=== PATIENT | male | born 1950 | race Caucasian/White ===

== ENCOUNTER 2025-02-01 12:22 | Outpatient (CLI) | payer MEDICARE, SELFPAY ==
[2025-02-01 15:18] LABS: Hematocrit 39.7 % (42.0-52.0); Hemoglobin 13.5 g/dL (14.1-18.0); Immature Granulocytes % 0.4 %; Mean Corpuscular HGB Conc 34.0 g/dL (31.8-35.4); Mean Corpuscular Hemoglobin 31.5 pg (27.0-31.2); Mean Corpuscular Volume 92.8 fl (80-94); Nucleated Red Blood Cells % 0 %; Platelet Count 272 K/mm3 (142-424); Red Blood Count 4.28 M/mm3 (4.60-6.20); Red Cell Distribution Width-SD 45.3 fL; White Blood Count 5.6 K/mm3 (4.8-10.8)
[2025-02-01 15:41] LABS: Alanine Aminotransferase 23 U/L (12-78); Albumin Level 3.8 g/dl (3.5-5.0); Albumin/Globulin Ratio 2.0 (1.1-1.8); Alkaline Phosphatase 48 U/L (38-126); Anion Gap 9.1 mEq/L (5-15); Aspartate Amino Transferase 34 U/L (17-59); Bilirubin,Total 0.7 mg/dl (0.2-1.3); Blood Urea Nitrogen 19 mg/dl (9-20); Calcium 9.4 mg/dl (8.4-10.2); Carbon Dioxide 28 mmol/L (22.0-30.0); Chloride 106 mmol/L (98-107); Cholesterol 123 mg/dl (140-200); Creatinine,Serum 1.00 mg/dl (0.66-1.25); Estimated Glomerular Filt Rate 73 ml/min (>60); GFR (African American) 88 ML/MIN (>60); Globulin 1.9 g/dL (1.3-3.2); Glucose 121 mg/dl (74-100); HDL Cholesterol 34 mg/dl (40-60); Magnesium 1.7 mg/dl (1.6-2.3); Potassium 4.1 mmoL/L (3.5-5.1); Sodium 139 mmol/L (136-145); Total Protein,Serum 5.7 g/dl (6.3-8.2); Triglycerides 110 mg/dl (30-150)
[2025-02-01 16:01] LABS: Free T4 (Free Thyroxine) 1.30 ng/dl (0.78-2.19)
[2025-02-01 16:12] LABS: Thyroid Stimulating Hormone 0.89 uIU/mL (0.465-4.68)
--- OUTSIDE RECORDS SUMMARY | 2025-02-02 12:07 | XMS_ITS | Encounter Summary ---
Author Organization [employer] ([place], [place], [place], [place]) Address [address] [place] [address] Care Team Providers Care Valve Grinder Name Role Phone Nithya Mahan MD Primary Care Provider [phone] Encounter Details Date Type Department Care Team (Late st Contact Info) Description 06/25/2020 Transcribed Document [facility] [place] [facility] [place] [address] ProviderPrakash MD [address] [place], [place] [id number] Social History Tobacco Use Types Packs/Day Years Used Date Smoking Tobacco: Never Assessed Sex and Gender Information Value Date Recorded Sex Assigned at Not on file Legal Sex Male 2:15 PM CDT Gender Identity Not on file Sexual Orientation Not on file documented as of this encounter Miscellaneous Notes * Cerner Conversion Note - Prakash ProviderMD - 06/25/2020 4:18 AM CONSUMER INSIGHT ANALYST Admission History, Adult Entered On: 06/25/2020 16:30 EST Performed On: 06/25/2020 15:20 EST by Nabila Clarke Rn Advance Directive Patient has Advance Directive *Q : No, patient refuses Advance Directive information Nabila Clarke Rn - 06/25/2020 16:48 EST Anesthesia/Transfusion History Family History of Anesthesia Reaction : Unknown Blood Transfusion Acceptable to Patient : Yes Transfusion History : Prior anesthesia without reaction Family History of Anesthesia Reaction : None Nabila Clarke Rn - 06/25/2020 16:48 EST Anticipated Discharge Needs Discharge To, Anticipated : Home Anticipated Discharge Needs at This Time : None Nabila Clarke Rn - 06/25/2020 16:48 EST Education Topics, Admission Orientation DCP GENERIC CODE Advance Directives : Verbalizes understanding Allergy Band Applied : Verbalizes understanding Assessment/Vital Signs : Verbalizes understanding Bed Control : Verbalizes understanding Call Light : Verbalizes understanding Confidentiality : Verbalizes understanding Diet/Room Service : Verbalizes understanding Fall Prevention : Verbalizes understanding Hand Hygiene : Verbalizes understanding Healthcare Provider Visit : Verbalizes understanding ID Band Applied : Verbalizes understanding Isolation Precautions : Verbalizes understanding Orientation to Room/Bathroom : Verbalizes understanding Patient Bill of Rights : Verbalizes understanding Patient Rights/Responsibilities : Verbalizes understanding Patient Safety : Verbalizes understanding Personal Privacy Code : Verbalizes understanding Rapid Response Initiated by Patient/Family : Verbalizes understanding Rounding : Verbalizes understanding Siderails use/risks : Verbalizes understanding Skin Precautions : Verbalizes understanding Smoking Policy : Verbalizes understanding Telemetry Monitoring : Verbalizes understanding Television/Phone : Verbalizes understanding Visiting Policy : Verbalizes understanding Nabila Clarke Rn - 06/25/2020 16:48 EST Functional Assessment Living Situation : Home Patient Lives With : Spouse Sensory Deficits : None Mobility Assistance Prior to Admission : Independent STOKES Hx Falls Immediate/Within 3 Months : No Current Home Treatments : None Home Equipment : None Nabila Clarke Rn - 06/25/2020 16:48 EST General Info Patient Arrival Date/Time : 06/25/2020 15:20 EST Arrived From : Other: PACU Mode of Arrival on Unit : Bed Legal Guardian : Spouse Support Person/Pt Rep Name : Amanda Romario Family/Rep/Phys Notified of Admit : No Emergency Contact #1 : Amanda Davenport Emergency Contact #1 Emergency Contact #1 Relationship : spouse Emergency Contact #2 : . Emergency Contact #2 Phone Number : . Emergency Contact #2 Relationship : . Information Obtained From : Patient Primary Language : Ukrainian Preferred Communication Mode : Verbal Communication Barrier : None Telecom Sales Consultant Needed : Nabila Garcia Rn - 06/25/2020 16:48 EST Fall Risk Scales ABCs Fall Injury Risk Identification : Surgery ABC Fall Injury Risk : Moderate to high injury risk Injury Moderate to High Risk Interventions : Bed alarm on STOKES Hx Falls Immediate/Within 3 Months : No Stokes Secondary Diagnosis : Yes STOKES Use of Ambulatory Aid : Bed rest/Nurse assist STOKES IV Therapy or IV Access : Yes Stokes Gait/Transferring : Normal, bedrest, immobile Stokes Mental Status : Oriented to own ability Stokes Fall Risk Score : 35 STOKES Fall Scale Risk Level : 25-45 Medium Risk [place] Fall Interventions : Adequate lighting, Assistive devices within reach, Bed in low position, Call device within reach, Fall prevention handout/education per facility policy, Frequent orientation to call device, Frequent orientation to surroundings, Hourly comfort/safety rounds, Non-slip footwear, Personal items within reach, Reinforced to call for assistance before getting out of bed, Room free of clutter/spills, Upper side-rails up, Wheels locked, Wires/Cords secured Fall Moderate to High Risk Interventions : Bed alarm on Nabila Clarke Rn - 06/25/2020 16:48 EST Fall Risk Education Grid Alarms : Verbalizes understanding Assistive Equipment Use : Verbalizes understanding Bed Height/Stabilization : Verbalizes understanding Call light use : Verbalizes understanding Door Open : Verbalizes understanding Environmental Management : Verbalizes understanding Eyeglasses Use : Verbalizes understanding Fall Community Resources : Verbalizes understanding Fall Contract/Letter : Verbalizes understanding Fall Prevention in the Home : Verbalizes understanding Fall Prevention Protocol : Verbalizes understanding Hearing Aid Use : Verbalizes understanding Home Risk Assessment : Verbalizes understanding Need Constant Observation : Verbalizes understanding Night Light Use : Verbalizes understanding Nonskid Footwear Use : Verbalizes understanding Notification of Staff When Leaving : Verbalizes understanding Orthostatic Hypotension Precautions : Verbalizes understanding Personal Article Availability : Verbalizes understanding Prevention Responsibility Family : Verbalizes understanding Prevention Responsibility Patient : Verbalizes understanding Risk Alert Methods : Verbalizes understanding Risk Factors : Verbalizes understanding Safety Aids : Verbalizes understanding Siderails use/risks : Verbalizes understanding Special Assistive Devices : Verbalizes understanding Staff Responsiveness : Verbalizes understanding Symptom Identification & Action Plan *Q : Verbalizes understanding Symptom Reporting : Verbalizes understanding Toileting Schedule : Verbalizes understanding Transfer/Mobility Techniques : Verbalizes understanding Urinal/Bedpan Availability : Verbalizes understanding Wait for Assistance : Verbalizes understanding Wheelchair Safety : Verbalizes understanding Nabila Clarke Rn - 06/25/2020 16:48 EST Barriers to Learning : None evident Individuals Taught : Patient Readiness to Learn : Cooperative Highest Level of Education : None Baseline Knowledge of Topic : Good Teaching Method : Explanation Learning Style Preferences Patient : Verbal explanation Teaching Evaluation : Verbalizes understanding Fall Risk Scale Calc Temp : 0 Nabila Clarke Rn - 06/25/2020 16:48 EST Health Histories Smoking Status : Former smoker, quit more than 30 days ago Smokeless Tobacco Status : Never Nabila Clarke Rn - 06/25/2020 16:48 EST Social History (As Of: 06/25/2020 16:30:28 EST) Tobacco: Used Tobacco, but Quit Yes. Last Used: kiah pprox. 35 years ago.. (Last Updated: 09/03/2015 08:54:49 EDT by LYNDSAY IBANEZ RN) stopped 35 yrs ago Smoking Status. Never Smokeless Tobacco Status. (Last Updated: 06/17/2020 09:49:56 EST by Genet Vasques RN) Alcohol: Alcohol Use History No. Use in Last 12 Months: No. (Last Updated: 06/17/2020 09:50:05 EST by Genet Vasques RN) Substance Abuse: Drug Use Hx: No. Use in Last 12 Months: No. (Last Updated: 06/17/2020 09:50:10 EST by Genet Vasques RN) Nutrition/Health: Regular (Last Updated: 06/17/2020 09:50:22 EST by Genet Vasques RN) Height and Weight, Clinical Dosing Height Source : Stated Height Entry Format : Garber Height, Feet : 6 ft(Converted to: 183 cm, 72 Inch) Height, Inches : 0 Inch(Converted to: 0 ft 0 Inch, 0.00 cm) Clinical Height : 182.88 cm Weight Source : Standing scale Weight Entry Format : Garber Clinical Dosing Weight : 88.64 kg Weight, Pounds : 195 lb Body Surface Area (BSA) : 2.11 m2 Body Mass Index : 26.5 kg/m2 (HI) Hunters Body Weight : 77 kg Nabila Clarke Rn - 06/25/2020 16:48 EST Infectious Disease History Has the patient ever been tested for COVID-19? : Yes, Patient stated results Negative Date of COVID-19 test known? : Yes Date of COVID-19 Test : 06/21/2020 EST Does patient have symptoms of COVID-19? : No COVID19 Screening : No Experiencing Infectious Disease Symptoms : No symptoms Physical contact outside [place] in the last 30 days : No Infectious Disease History : Measles, Mumps Tuberculosis Symptoms : None Nabila Clarke Rn - 06/25/2020 16:48 EST Tetanus Immunization Status Previous Tetanus Immunizations : No qualifying data available. Tetanus Immunization : None received Nabila Clarke Rn - 06/25/2020 16:48 EST Influenza Vaccine Asmt, Adult Previous Vaccines from Immunization Schedule : No qualifying data available. Influenza Immunization, Current Season : Yes Nabila Clarke Rn - 06/25/2020 16:48 EST Pneumococcal Vaccine Previous Vaccines from Immunization Schedule : No qualifying data available. Pneumonia Immunization Received : Yes Nabila Clarke Rn - 06/25/2020 16:48 EST Order Details Transport Mode Order Detail : Bed (including specialty) Isolation Precautions Order Detail : Standard Precautions Order Detail : N/A IV Order Detail : 1 Oxygen Order Detail : 0 Nurse Collect Order Detail : 0 Lift/Transfer : Independent Central Line Order Detail : No Room Service : Appropriate Arterial Line : No Patient Needs Meds Crushed/Liquid : No Nabila Clarke Rn - 06/25/2020 16:48 EST Nutrition History Feeding Ability : Independent Adaptive Feeding Equipment : None Adaptive Feeding Equipment : Regular Oral Medication Administration : By mouth Eating Poorly Due to Decreased Appetite : No Unplanned Weight Loss in Past 3-6 Months : No Malnutrition Screening Tool Total(mal) : 0 Malnutrition Screening Tool Risk Level : Patient not at risk Nabila Clarke Rn - 06/25/2020 16:48 EST [place] Suicide Severity Rating Scale (C-SSRS) CSSRS Past Month Wish to be : No CSSRS Past Month Suicidal Thoughts : No CSSRS Lifetime Suicide Behavior : No Suicide Severity Rating Score : 0 Suicide Severity Rating : No Additional Care Required at this time Nabila Clarke Rn - 06/25/2020 16:48 EST Psychosocial History Currently in Unsafe Situation : No Nabila Clarke Rn - 06/25/2020 16:48 EST Sleep Apnea Risk Assmt Hx of Obstructive Sleep Apnea Diagnosis : No Snore Loudly : Yes Tired, Fatigued, or Sleepy During Day : No Observed Stopping Breathing During Sleep : No Have/Are Being Treated for Hypertension : Yes BMI Greater Than 35 kg/m2 : No Age over 50 Years Old : Yes Neck Circumference Greater Than 40 cm : No Gender Male : Yes STOP-BANG Sleep Apnea Risk Level Score : 4 Nabila Clarke Rn - 06/25/2020 16:48 EST Valuables and Belongings Valuables and Belongings : Clothing, Personal devices, Personal items Clothing : Common streetwear Clothing Disposition : Sent to locker Personal Device Disposition : Bedside Personal Devices : Glasses Personal Items : Cell phone Personal Items Disposition : Bedside Nabila Clarke Rn - 06/25/2020 16:48 EST Electronically signed by Stephanie [facility] Conversion Digital Marketer Cerner at 08/20/2022 9:00 AM CDT documented in this encounter Plan of Treatment Not on file documented as of this encounter Visit Diagnoses Not on filedocumented in this encounter Care Teams Valve Grinder Relationship Specialty Start Date End Date Nithya Mahan MD [address] [place] [id number] PCP - General Family Medicine 02/02/23 documented as of this encounter
--- OUTSIDE RECORDS SUMMARY | 2025-02-02 12:07 | XMS_ITS | Clinical Summary ---
Author Organization [facility] yste Address [address] [place] [address] Care Team Providers Care Metal Window Frame Maker Name Role Phone Provider, No Known Primary Care Provider [phone] Social History Tobacco Use Types Packs/Day Years Used Date Smoking Tobacco: Never Assessed Abuse Screen Answer Date Recorded Unsafe at Home or Work/School Not on file Feels Threatened by Someone? Not on file 03/2023 Does Anyone Keep You from Co ntacting Others or Doint Things Outside the Home? Not on file 02/10/2023 Physical Sign of Abuse Present Not on file 1 Housing Stability Answer Date Recorded Current Living Arrangements Not on file 01/31 Potentially Unsafe Housing Conditions Not on wendi e 02/10/2023 Family and Community Support Answer Balbir e Recorded Help with Day-to-Day Activities Not on file 02/10/2023 Lonely or Isolated Not on file 02/10/2023 Employment Answer Date Recorded Do you want help finding or keeping work or a kayli b? Not on file 02/10/2023 Disabilities Answer Date Recorded Concentrating, Remembering, or Making Decisions Difficulty Not on file 02/10/2023 Doing Errands Independently Difficulty Not on fi le 02/10/2023 Education Answer Date Recorded Help with school or training? Not on file Preferred Language Not on file 02/10/2023 Sex and Gender Information Value Date Recorded Sex Assigned at Not on file Legal Sex Male 12:04 PM EDT Gender Identity Not on file Sexual Orientation Not on file Plan of Treatment Health Maintenance Due Date Last Done Comments COLOGUARD 1994 COLON CANCER SCREENING 5 YEA R SIGMOIDOSCOPY 1994 COLONOSCOPY 1994 COLORECTAL CANCER SCREENING 1994 CT COLONOGRAPHY 1994 FECAL OCCULT BLOOD TEST 1994 FIT Testing (1 year) 1994 ZOSTER VACCINE (1 of 2) 1999 AAA SCREEN ONCE 2014 ANNUAL PHYSICAL 12/19/2018 HEPATITIS C SCREENING 12/19/2018 RSV Vaccine - Adults (1 - 1- dose 75+ series) 2024 INFLUENZA VACCINE 12/01/2024 03/03/2022, , 02/22/2020, Additional history exists COVID-19 Vaccine ( - 2024-2 6 season) 2025 08/29/2020, 08/28/2020, 08/02/2020, Additional history exists TDAP/TD VACCINES (2 - Td or Tdap) 03/03/2026 016 Pneumococcal Vaccine 50+ Completed 02/21/2018, 05/2015 Insurance MEDICARE A & B [facility] OPT[facility] Care Teams Metal Window Frame Maker Relationship Specialty Start Date End Date Provider, No Known [facility] [place] [address] PCP - General 12/19/15
--- OUTSIDE RECORDS SUMMARY | 2025-02-02 12:07 | XMS_ITS | Encounter Summary ---
Author Organization [employer] ([place], [place], [place], [place]) Address [address] [place] [address] Care Team Providers Care Best Second Jobs Name Role Phone Nithya Mahan MD Primary Care Provider [phone] Encounter Details Date Type Department Care Team (Late st Contact Info) Description 06/25/2020 Transcribed Document [facility] [place] [facility] [place] [address] ProviderPrakash MD [address] [place] [address] Social History Tobacco Use Types Packs/Day Years Used Date Smoking Tobacco: Never Assessed Sex and Gender Information Value Date Recorded Sex Assigned at Not on file Legal Sex Male 2:15 PM CDT Gender Identity Not on file Sexual Orientation Not on file documented as of this encounter Miscellaneous Notes * Cerner Conversion Note - Prakash Caldera MD - 06/25/2020 5:00 PM FUNNEL COATER Chart Check - Review Order Profile Entered On: 06/25/2020 17:47 EST Performed On: 06/25/2020 17:00 EST by Nabila Clarke Rn Chart Check Powerplans Initiated/Discontinued as Appropriate : Yes All Active Orders Reviewed : Yes Nabila Clarke Rn - 06/25/2020 17:47 EST documented in this encounter Plan of Treatment Not on file documented as of this encounter Visit Diagnoses Not on filedocumented in this encounter Care Teams Best Second Jobs Relationship Specialty Start Date End Date Nithya Mahan MD [address] [place] [address] PCP - General Family Medicine 02/02/23 documented as of this encounter
--- OUTSIDE RECORDS SUMMARY | 2025-02-02 12:07 | XMS_ITS | Encounter Summary ---
Author Organization [employer] ([place], [place], [place], [place]) Address [address] [place] [address] Care Team Providers Care Riding Silks Custodian Name Role Phone Nithya Mahan MD Primary Care Provider [phone] Encounter Details Date Type Department Care Team (Late st Contact Info) Description 06/25/2020 Transcribed Document [facility] [place] [facility] [place] [address] ProviderPrakash MD [address] [place] [address] Social History Tobacco Use Types Packs/Day Years Used Date Smoking Tobacco: Never Assessed Sex and Gender Information Value Date Recorded Sex Assigned at Not on file Legal Sex Male 2:15 PM CDT Gender Identity Not on file Sexual Orientation Not on file documented as of this encounter Miscellaneous Notes * Cerner Conversion Note - Prakash Caldera MD - 06/25/2020 10:16 AM AUDIT INTERN Time Out Documentation Entered On: 06/25/2020 10:17 EST Performed On: 06/25/2020 10:16 EST by ED CERVANTES, RN Time Out Documentation Time Out Pause Time : 06/25/2020 10:16 EST ED CERVANTES RN - 06/25/2020 10:42 EST Procedure to be Performed : bilateral tap All Activity Suspended : Yes Team Verbally Confirms Information : Correct patient identity, Correct side and site are marked, Consent form is present and accurate, Agreement on the procedure to be done, Correct patient position, Relevant images/results properly labeled/appropriately displayed, Confirm the skin prep has dried, Performed in location of procedure after prepped/draped, Performed before each procedure if multiple procedures ED CERVANTES RN - 06/25/2020 10:16 EST documented in this encounter Plan of Treatment Not on file documented as of this encounter Visit Diagnoses Not on filedocumented in this encounter Care Teams Riding Silks Custodian Relationship Specialty Start Date End Date Nithya Mahan MD [address] [place] [address] PCP - General Family Medicine 02/02/23 documented as of this encounter
--- OUTSIDE RECORDS SUMMARY | 2025-02-02 12:07 | XMS_ITS | Encounter Summary ---
Author Organization Healthcare Address [address] [place] [address] Care Team Providers Care Fireworks Maker Name Role Phone Nithya Mahan MD Primary Care Provider [phone] Encounter Details Date Type Department Care Team (Late st Contact Info) Description 12/10/2023 Outside Procedure External Location [address] [place] [address] Marcella Vasquez [employer] [address] [place] [address] Social History Tobacco Use Types Packs/Day Years Used Date Smoking Tobacco: Former Cigarettes 1 17 1 963 - 1979 Passive Smoke Exposure: Past Smokeless Tobacco: Never Alcohol Use Standard Drinks/Week Comments Yes 0 (1 standard drink = 0.6 oz pur e alcohol) Humiliation, Afraid, Rape, and Kick questionnair e Answer Date Recorded Within the last year, have y ou been afraid of your partner or ex-partner? No 12/10/2023 Within the last year, have y ou been humiliated or emotionally abused in other ways by your partner or ex-partner? No Within the last year, have y ou been kicked, hit, slapped, or otherwise physically hurt by your partner or ex-partner? No 12/10/2023 Within the last year, have y ou been raped or forced to have any kind of sexual activity by your partner or ex-partner? No 12/10/2023 Social Connection and Isolation Panel Answer Date Recorded In a typical week, how many times do you talk on the phone with family, friends, or neighbors? Never 04/09/2023 How often do you get together with friends or re latives? Never 04/09/2023 How often do you attend denominational or worship serv ices? Never 04/09/2023 Do you belong to any clubs o r organizations such as denominational groups, unions, fraternal or athletic groups, or school groups? No 04/09/2023 How often do you attend meet ings of the clubs or organizations you belong to? Never 04/09/2023 Are you , , di vorced, , never , or living with a partner? 04/09/2023 AUDIT-C Answer Date Recorded Q1: How often do you have a drink containing alc ohol? Monthly or less 04/09/2023 Q2: How many drinks containi ng alcohol do you have on a typical day when you are drinking? 1 or 2 04/09/2023 Q3: How often do you have si x or more drinks on one occasion? Never 04/09/2023 Overall Financial Resource Strain (CARDIA) Answe r Date Recorded How hard is it for you to pa y for the very basics like food, housing, medical care, and heating? Not hard at all 04/09/2023 PHQ-2 Answer Date Recorded Patient Health Questionnaire-2 Score 0 12/10/2023 [facility] - Occupational Stress Questionnaire Answer Date Recorded Do you feel stress - tense, restless, nervous, or anxious, or unable to sleep at night because your mind is troubled all the time - these days? Not at all 04/09/2023 Exercise Vital Sign Answer Date Recorde d On average, how many days pe r week do you engage in moderate to strenuous exercise (like a brisk walk)? 4 days 04/09/2023 On average, how many minutes do you engage in exercise at this level? 30 min 04/09/2023 Hunger Vital Sign Answer Date Recorded Within the past 12 months, y ou worried that your food would run out before you got the money to buy more. Never true 12/10/19 24 Within the past 12 months, t he food you bought just didn't last and you didn't have money to get more. Never true 12/10/2023 PRAPARE - Transportation Answer Date Re corded In the past 12 months, has l ack of transportation kept you from medical appointments or from getting medications? No 01/2024 In the past 12 months, has l ack of transportation kept you from meetings, work, or from getting things needed for daily living? No 12/10/2023 Housing Stability Vital Sign Answer Balbir e Recorded In the last 12 months, was t here a time when you were not able to pay the mortgage or rent on time? No 12/10/2023 In the last 12 months, how many places have you lived? 1 12/10/2023 In the last 12 months, was t here a time when you did not have a steady place to sleep or slept in a fdc (including now)? No 12/10/2023 Safety and Environment Answer Date Kris rded Do you worry that your child may have been physically abused? No 12/10/2023 Do you worry that your child may have been sexua lly abused? No 12/10/2023 Are there any guns kept in o r around your home or where your child spends time? No 12/10/2023 Guns Unloaded or Locked Away Not on file 01/2024 Utilities Answer Date Recorded In the past 12 months has th e electric, gas, oil, or water company threatened to shut off services in your home? No 12/10/2023 Sex and Gender Information Value Date Recorded Sex Assigned at Not on file Legal Sex Male 8:49 PM EDT Gender Identity Not on file Sexual Orientation Not on file documented as of this encounter Functional Status * Over the past 2 weeks, how often have you been bothered by any of the following problems? Question Answer Date of Assessment Author Little interest or pleasure in doing things Not at all 12/10/2023 9:21 AM Kylie Lovell Feeling down, depressed, or hopeless Not at all 12/10/2023 9:21 AM CHRISTINAT Kylie Luz Patient Health Questionnaire -2 Score 0 12/10/2023 9:21 AM Kylie Lovell documented as of this encounter Plan of Treatment Not on file documented as of this encounter Procedures Procedure Name Priority Date/Time Associated Diagnosis Comments XR LUMBAR SPINE 2 OR 3 VIEWS 12/10/2023 10:24 AM EDT documented in this encounter Results * XR Lumbar Spine 2 or 3 Views (12/10/2023 10:24 AM EDT) Anatomical Region Laterality Modality Spine, L-spine Digital Radiogra phy 12/10/2023 10:2 4 AM EDT Narrative 12/13/2023 2:02 PM EDT [address] [address] Name: NEFTALI DAVENPORT Exam Date: 12/10/2023 : 1950 Age 73 years Gender: M Physician: MARCELLA VASQUEZ Facility: [facility] Facility HSV: Outpatient Exam: LUMBAR SPINE 2 TO 3V PROCEDURE: XR LUMBAR SPINE 2-3 VIEWS CLINICAL INDICATION: Pain. COMPARISON: Radiographs from 08/08/2020. MRI from 08/27/2020 TECHNIQUE: Frontal, lateral and coned-down views of the lumbar spine. FINDINGS: Bones: Fivelumbar-type vertebral bodies. Vertebral body heights preserved. Moderate to severe multilevel disc degeneration. Extensive multilevel facet arthropathy.Partially visualized pelvic structures normal. Sacroiliac joints normal. Soft tissues: Extensive atheromatous calcification of the abdominal aorta, with maximum measurable diameter of approximately 2.8 cm, similar to prior. Surgical clips overlie the right upper abdomen and the soft tissues of the thighs/groin. Approximately 1 cm rounded density overlying the right upper abdomen, possible vascular. IMPRESSION: 1. 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 2. 2.8 cm abdominal aorta, similar to prior study from 08/08/2020. Recommend follow-up every 5 years. Electronically signed by:Tim Ortiz MD12/13/2023 01:59 PM EDT Dictated By: Tim Ortiz Transcribed By: Transcribed On: 12/10/2023 10:44 AM Electronically signed by: Tim Ortiz 12/10/2023 Thank you for referring NEFTALI DAVENPORT to [facility]. Legally authenticated by ALEXANDRE SUGGS 2023-12-10 10:44:49 Procedure Note Provider, Beverly Mayking - 12/13/2023 [id number] [place] [address] Name: NEFTALI DAVENPORT Exam Date: 12/10/2023 : 1950 Age 73 years Gender: M Physician: MARCELLA VASQUEZ Facility: [facility] Facility HSV: Outpatient Exam: LUMBAR SPINE 2 TO 3V PROCEDURE: XR LUMBAR SPINE 2-3 VIEWS CLINICAL INDICATION: Pain. COMPARISON: Radiographs from 08/08/2020. MRI from 08/27/2020 TECHNIQUE: Frontal, lateral and coned-down views of the lumbar spine. FINDINGS: Bones: Fivelumbar-type vertebral bodies. Vertebral body heightspreserved. Moderate to severe multilevel disc degeneration. Extensive multilevelfacet arthropathy.Partially visualized pelvic structures normal. Sacroiliacjoints normal. Soft tissues: Extensive atheromatous calcification of the abdominalaorta, with maximum measurable diameter of approximately 2.8 cm, similar toprior. Surgical clips overlie the right upper abdomen and the soft tissues ofthe thighs/groin. Approximately 1 cm rounded density overlying the rightupper abdomen, possible vascular. IMPRESSION: 1. Moderate to severe multilevel disc degeneration and facethypertrophy, similar to prior study from 08/08/2020. 2. 2.8 cm abdominal aorta, similar to prior study from 08/08/2020.Recommend follow-up every 5 years. Electronically signed by:Tim Ortiz MD12/13/2023 01:59 PM EDT Dictated By: Tim Ortiz Transcribed By: Transcribed On: 12/10/2023 10:44 AM Electronically signed by: Tim Ortiz 12/10/2023 Thank you for referring NEFTALI DAVENPORT to [facility]. Legally authenticated by ALEXANDRE SUGGS 2023-12-10 10:44:49 us Marcella Vasquez [employer] IMG XR PROCEDURES Final Res ult documented in this encounter Visit Diagnoses Not on filedocumented in this encounter Additional Health Concerns Assessment Noted Time A fall risk assessment has been complete d for the patient 12/10/2023 9:21 AM EDT A Body Mass Index follow-up plan has been documented for the patient 12/10/2023 10:03 AM EDT documented as of this encounter Care Teams Fireworks Maker Relationship Specialty Start Date End Date Nithya Mahan MD [address] [place] [address] PCP - General 09/13/20 documented as of this encounter
--- OUTSIDE RECORDS SUMMARY | 2025-02-02 12:07 | XMS_ITS | Encounter Summary ---
Author Organization [employer] ([place], [place], [place], [place]) Address [address] [place] [address] Care Team Providers Care Professional Nurse Name Role Phone Nithya Mahan MD Primary Care Provider [phone] Encounter Details Date Type Department Care Team (Late st Contact Info) Description 06/25/2020 Transcribed Document [facility] [place] Family Medicine Formerly [facility] [place] [address] ProviderPrakash MD [address] [place] [address] Social History Tobacco Use Types Packs/Day Years Used Date Smoking Tobacco: Never Assessed Sex and Gender Information Value Date Recorded Sex Assigned at Not on file Legal Sex Male 2:15 PM CDT Gender Identity Not on file Sexual Orientation Not on file documented as of this encounter Miscellaneous Notes * Cerner Conversion Note - Prakash Caldera MD - 06/25/2020 12:36 PM ROLLER PRINTER [facility] Main OR IntraOp Summary Primary Physician: ANGELIA BURROUGHS JR, MD-URO Finalized Date/Time: 06/25/20 14:39:32 Pt. Name: NEFTALI DAVENPORT/Sex: 1950 Male Med Rec #: [id number] Physician: ANGELIA BURROUGHS JR, MD-URO Financial #: [id number] Pt. Type: O Room/Bed: Admit/Disch: 06/25/20 04:19:00 - Institution: [facility] [place] IntraOp Case Attendance Entry 1 Entry 2 Entry 3 Case Attendee ANGELIA BURROUGHS JR, TAYLOR MAGNOLIA, ST Marr, [place], Surgical MD-URO Channel Executive Cert Role Performed Surgeon/Proceduralist, Scrub, First Scrub, Second First Time In 06/25/20 12:14:00 06/25/20 12:14:00 06/25/20 12:14:00 Time Out 06/25/20 14:35:00 06/25/20 14:35:00 06/25/20 14:35:00 Procedure Prostatectomy Radical Prostatectomy Radical Prostatectomy Radical Robotic Robotic Robotic Other Attendee lunch relief Superficial Wound Closed By: Last Modified By: TATO RIZZO, TATO STEWART, RN TATO RIZZO, TOM 06/25/20 14:36:27 06/25/20 14:36:27 06/25/20 14:36:27 Entry 4 Entry 5 Entry 6 Case Attendee RAE HORVATH ST ARVIN, CHRIS L, Edward Zavala Role Performed Scrub, Second Physician assistant corporate secretary, Ancillary Time In 06/25/20 12:14:00 06/25/20 12:14:00 06/25/20 12:14:00 Time Out 06/25/20 14:35:00 06/25/20 14:35:00 06/25/20 14:35:00 Procedure Prostatectomy Radical Prostatectomy Radical Prostatectomy Radical Robotic Robotic Robotic Other Attendee Superficial Wound Closed By: Last Modified By: TATO RIZZO, TATO STEWART, TATO STEWART, TOM 06/25/20 14:36:27 06/25/20 14:36:27 06/25/20 14:36:27 Entry 7 Entry 8 Entry 9 Case Attendee OLY KATZ, MOLDING ENGINEER TATO RIZZO, Shahram Ng, Lety Emp RN Role Performed MOLDING ENGINEER/Nurse Union Laborer Dip Tanker, First Dip Tanker, Second Time In 06/25/20 12:14:00 06/25/20 12:14:00 06/25/20 12:14:00 Time Out 06/25/20 14:35:00 06/25/20 14:35:00 06/25/20 12:47:00 Procedure Prostatectomy Radical Prostatectomy Radical Prostatectomy Radical Robotic Robotic Robotic Other Attendee Superficial Wound Closed By: Last Modified By: TATO RIZZO, TATO STEWART, TATO STEWART RN 06/25/20 14:36:27 06/25/20 14:36:27 06/25/20 14:36:27 Entry 10 Entry 11 Entry 12 Case Attendee BRYSON TORREZ MD Childers, Brian, Kuch, Brianna D instrument testerSupervisor Wrapping Room Role Performed Surgeon/Proceduralist, Scrub, Third Dip Tanker, Second Second Time In 06/25/20 14:04:00 06/25/20 14:04:00 06/25/20 14:04:00 Time Out 06/25/20 14:14:00 06/25/20 14:16:00 06/25/20 14:16:00 Procedure Prostatectomy Radical Prostatectomy Radical Prostatectomy Radical Robotic Robotic Robotic Other Attendee endo endoscopy Superficial Wound Closed By: Last Modified By: TATO RIZZO, TATO STEWART, TATO STEWART RN 06/25/20 14:36:27 06/25/20 14:36:27 06/25/20 14:36:27 [facility] IntraOp Case Attendance Audit 06/25/20 14:36:27 Ornamental Iron Worker Apprentice: JUSTICE Modifier: JUSTICE 1 <+> Time Out 1 <*> Procedure Prostatectomy Radical Robotic 2 <+> Time Out 2 <*> Procedure Prostatectomy Radical Robotic 3 <+> Time Out 3 <*> Procedure Prostatectomy Radical Robotic 4 <+> Time Out 4 <*> Procedure Prostatectomy Radical Robotic 5 <+> Time Out 5 <*> Procedure Prostatectomy Radical Robotic 6 <+> Time Out 6 <*> Procedure Prostatectomy Radical Robotic 7 <+> Time Out 7 <*> Procedure Prostatectomy Radical Robotic 8 <+> Time Out 8 <*> Procedure Prostatectomy Radical Robotic 9 <*> Procedure Prostatectomy Radical Robotic 10 <*> Procedure Prostatectomy Radical Robotic 11 <*> Procedure Prostatectomy Radical Robotic 12 <*> Procedure Prostatectomy Radical Robotic 06/25/20 14:18:10 Ornamental Iron Worker Apprentice: JUSTICE Modifier: MARXCO <+> 10 Case Attendee <+> 10 Role Performed <+> 10 Time In <+> 10 Time Out <+> 10 Procedure <+> 11 Case Attendee <+> 11 Role Performed <+> 11 Time In <+> 11 Time Out <+> 11 Procedure <+> 11 Other Attendee <+> 12 Case Attendee <+> 12 Role Performed <+> 12 Time In <+> 12 Time Out <+> 12 Procedure <+> 12 Other Attendee 06/25/20 12:52:56 Ornamental Iron Worker Apprentice: JUSTICE Modifier: NICOO 1 <+> Time In 1 <*> Procedure Prostatectomy Radical Robotic 2 <+> Time In 2 <*> Procedure Prostatectomy Radical Robotic 3 <+> Time In 3 <*> Procedure Prostatectomy Radical Robotic 4 <+> Time In 4 <*> Procedure Prostatectomy Radical Robotic 5 <+> Time In 5 <*> Procedure Prostatectomy Radical Robotic 6 <+> Time In 6 <*> Procedure Prostatectomy Radical Robotic 7 <+> Time In 7 <*> Procedure Prostatectomy Radical Robotic 8 <+> Time In 8 <*> Procedure Prostatectomy Radical Robotic 9 <+> Time In 9 <+> Time Out 9 <*> Procedure Prostatectomy Radical Robotic 06/25/20 12:43:01 Ornamental Iron Worker Apprentice: JUSTICE Modifier: MARXCO <+> 9 Case Attendee <+> 9 Role Performed <+> 9 Procedure 06/25/20 12:01:40 Ornamental Iron Worker Apprentice: JUSTICE Modifier: NICOO <+> 1 Procedure 2 <*> Procedure Prostatectomy Radical Robotic 3 <*> Procedure Prostatectomy Radical Robotic 4 <*> Procedure Prostatectomy Radical Robotic 5 <*> Procedure Prostatectomy Radical Robotic 6 <*> Procedure Prostatectomy Radical Robotic 7 <*> Procedure Prostatectomy Radical Robotic 8 <*> Procedure Prostatectomy Radical Robotic [facility] IntraOp Case Times Entry 1 Patient In Room Time 06/25/20 12:14:00 Out Room Time 06/25/20 14:35:00 Anesthesia Start Time 06/25/20 12:14:00 Stop Time 06/25/20 14:35:00 Anesthesia Ready 06/25/20 12:14:00 Surgery / Procedure Times Start Time 06/25/20 12:36:00 Stop Time 06/25/20 14:32:00 Last Modified By: TATO RIZZO RN 06/25/20 14:35:46 [facility] IntraOp Case Times Audit 06/25/20 14:35:46 Ornamental Iron Worker Apprentice: JUSTICE Modifier: MARXCO <+> 1 Out Room Time <+> 1 Stop Time <+> 1 Stop Time [facility] IntraOp Cautery Entry 1 ESU Identification Cautery Type Monopolar ESU ID Number [id number] ID Type Hospital Number Cautery Settings Cut Setting 3 Coag Setting 3 Bipolar Setting 3 ESU Grounding Pad Ground Pad Type Adult Grounding Pad Site Left thigh Grounding Pad TATO RIZZO RN Applied By Grounding Pad Site Intact Skin Condition Before Cautery Grounding Pad Site Intact Skin Condition After Cautery Last Modified By: TATO RIZZO RN 06/25/20 12:01:00 [facility] IntraOp Communication Entry 1 Communication To Family/Significant other Communication By TATO RIZZO RN Last Modified By: TATO RIZZO RN 06/25/20 12:01:06 [facility] IntraOp Counts Verification Entry 1 Procedure Prostatectomy Radical Robotic Count Info Count Type Sponge, Sharps, Miscellaneous Counts Verification Baseline/pre-procedure Sequence Count Results Not Applicable Counts Performed By Count Performed By MAGNOLIA MAYNARD ST (Scrub) Count Performed By TATO RIZZO RN (RN) Last Modified By: TATO RIZZO RN 06/25/20 12:01:20 [facility] IntraOp Counts Final Entry 1 Procedure Prostatectomy Radical Robotic Final Count Info Count Type Sponge, Sharps, Miscellaneous Counts Verification Skin Closure/end of Sequence procedure Count Results Correct, surgeon notified Counts Performed By Count Performed By MAGNOLIA MAYNARD ST (Scrub) Count Performed By TATO RIZZO RN (RN) Last Modified By: TATO RIZZO RN 06/25/20 14:36:15 [facility] IntraOp Cultures and Spec Summary Entry 1 Cultrures and Specimens Specimen Ordered: Yes Test(s) Routine/Path-Lab Requested/Final Disposition Last Modified By: TATO RIZZO RN 06/25/20 12:01:23 [facility] IntraOp Departure from OR Entry 1 Integumentary Assessment Transfer/Handoff Transfer to PACU Phase I Handoff Method Bedside/Face to face Post-op Transport Bed (including Via specialty) Patient Transport OLY KATZ CRNA, Accompanied by TATO RIZZO RN Last Modified By: TATO RIZZO RN 06/25/20 12:53:18 [facility] IntraOp Drains and Tubes Entry 1 Device Type Anthony Rivera round drain Last Modified By: TATO RIZZO RN 06/25/20 14:35:24 [facility] IntraOp Dressing and Packing Entry 1 Type Dressing Location abdomen Wound Dressing Item 2x2's, Skin adhesive, Steristrip Last Modified By: TATO RIZZO RN 06/25/20 12:01:38 [facility] IntraOp Fire Risk Assessment Entry 1 Fire Info Surgical Site or 0- No Incision Above the Xyphoid Open O2 Source 0- No (Mask or Cannula) Available Ignition 1- Yes (ESU, Laser, Light Source) Fire Risk 1 Assessment Score Fire Score Fire Risk Yes Assessment Complete Fire Risk TATO RIZZO RN Assessment Verified By Fire Risk 06/25/20 12:14:00 Assessment Verified Date/Time Fire Risk Standard Fire Yes Safety Precautions Followed Last Modified By: TATO RIZZO RN 06/25/20 13:04:05 [facility] IntraOp Fire Risk Assessment Audit 06/25/20 13:04:05 Ornamental Iron Worker Apprentice: JUSTICE Modifier: JUSTICE <+> 1 Fire Risk Assessment Verified Date/Time [facility] IntraOp General Case Knitter Wire Mesh 1 Case Information OR OR 07 [facility] Case Level 1 Room Verified Yes Wound Class II - Clean-Contaminated Specialty SN Urology Anesthesia Type General ASA Class 2 Diagnosis Preop Diagnosis prostate Cancer Postop Same As Preop Yes Postop Diagnosis prostate Cancer Last Modified By: TATO RIZZO RN 06/25/20 13:04:29 [facility] IntraOp Implant Log Entry 1 Type Tissue Implant (Biologic) Implant Log Tissue Implant Type Other Implant [employer]FT [employer]OD[employer] Identification [id number] Description Implant Quantity 1 Implant Site pelvis Implant [id number] Identification Serial Number [employer] Identification Water Sponger Name: Implant [id number] Identification Catalog Number Implant Has an Yes Expiration Date Implant Expiration 04/12/24 Date Tissue Implant Tissue MAGNOLIA MAYNARD ST Prepared/Processed By Water Sponger Yes Paperwork Completed Last Modified By: TATO RIZZO RN 06/25/20 13:06:58 [facility] IntraOp Intraoperative Assessment Entry 1 Handoff Method Bedside/Face to face Valid History / Yes Physical in Chart Preoperative Yes Checklist Reviewed/Evaluated Allergies Reviewed Yes Patient is Latex No Sensitive Isolation Not applicable Precautions Noted Level of WDL Consciousness (WDL = Alert, Oriented to Person, Place, and Time) Skin Assessment Yes Verified Present Upon IVs Arrival to OR Last Modified By: TATO RIZZO RN 06/25/20 12:08:36 [facility] IntraOp Intraoperative Equipment Entry 1 Type Equipment Equipment Equipment Robot Intraop Monitoring Antiembolic Devices Antiembolic Devices Sequential compression device, knee high Antiembolic Device Bilateral Location Antiembolic Device [id number] ID Number Scopes Photo/Video Documentation Photo No Video No Last Modified By: TATO RIZZO RN 06/25/20 13:07:28 [facility] IntraOp Medication Admin Entry 1 Medication/Irrigant lidocaine 2% urojet 10ml jelly - [id number] Route of topical Administration Dose Volume qs Administered By ANGELIA BURROUGHS JR, MD-URO Procedure Irrigation Last Modified By: TATO RIZZO RN 06/25/20 13:08:23 [facility] IntraOp Patient Positioning Entry 1 Procedure Prostatectomy Radical Robotic Body Position Lithotomy Left Arm Position Tucked and padded at side Right Arm Position Tucked and padded at side Left Leg Position Secured in Leg Fink Right Leg Position Secured in Leg Fink Feet Uncrossed Yes Pressure Points Yes Checked Positioning Devices Stirrups/Leg Fink, Boot, Pad (Other) Positioning Device blue foam pad Comments Positioned By OLY KATZ CRNA, ANGELIA BURROUGHS JR, MD-URO, Shahram Macdonald, Lety Way RN, ANGELIA BURROUGHS JR, MD-URO, TAYLOR SIMENTAL, MAINOR Position Verified Positioning Yes Verified by Anesthesia Positioning Yes Verified by Surgeon Last Modified By: TATO RIZZO RN 06/25/20 13:08:05 [facility] IntraOp Sign In Entry 1 Patient, Site, Yes Procedure Identified Surgical Consent Yes Confirmed Relevant Surgical Yes Documents Available Surgical Site N/A Marked by person performing procedure Anesthesia Machine Yes Check Completed Medication Checks Yes Completed Airway Difficult No Airway/Aspiration Risk Difficult Yes Airway/Aspiration Intervention Equipment Available Blood Loss Risk Yes Blood Loss Yes Intervention Equipment Prepared and Ready Hypothermia Risk Yes Warming Measures Yes Taken Last Modified By: TATO RIZZO RN 06/25/20 13:08:07 [facility] Intra Op Sign Out Entry 1 RN Confirmation Surgical Yes Procedure(s) Identified Instrument, Sponge Yes and Sharps Counts Correct/Documented Equipment Problems N/A Documented Specimen Labeled Yes Correctly Urinary Catheter Yes Documented in IView Osman Patient Yes Recovery Concerns Reviewed with Anesthesia Provider, Surgeon and RN Osman Patient Yes Management Concerns Reviewed with Anesthesia Provider, Surgeon and RN Safety Checklist Yes Elements Complete? RN Sign Out TATO RIZZO RN Signature RN Sign Out 06/25/20 14:36:00 Signature Date/Time Plan of Care Outcome - Fire Risk OUTCOME STATEMENT: Goal met Patient is free from injury related to surgical fire Plan of Care Outcome - Pt Positioning OUTCOME STATEMENT: Goal met Absence of signs and symptoms of positioning injury. Plan of Care Outcome - Skin Prep OUTCOME STATEMENT: Goal met Intraoperative care is consistent with measures to prevent infection Plan of Care Outcome - Xray/Images OUTCOME STATEMENT: Goal met Absence of observable signs or symptoms of radiation injury Plan of Care Outcome - Counts OUTCOME STATEMENT: Goal met Absence of signs and symptoms of injury related to extraneous objects Last Modified By: TATO RIZZO RN 06/25/20 14:36:25 [facility] Intra Op Sign Out Audit 06/25/20 14:36:25 Ornamental Iron Worker Apprentice: JUSTICE Modifier: NICOO <+> 1 RN Sign Out Signature Date/Time [facility] IntraOp Skin Prep Entry 1 Procedure Prostatectomy Radical Robotic Prescribed Yes Pre-Surgical Prep Completed Prep Area abdomen, penis Intraop Prep Prep Agents Betadine solution, Chloraprep Prep by Shahram Macdonald Non Emp RN Skin Prep Comment Dr Burroughs - abd Hair Removal Last Modified By: TATO RIZZO RN 06/25/20 13:12:23 [facility] IntraOp Surgical Procedures Entry 1 Procedure Prostatectomy Radical Robotic Additional ROBOTIC PROSTATECTOMY Procedure WITH NODES, proctoscopy Description Primary Procedure Yes Primary Surgeon ANGELIA BURROUGHS JR, MD-URO Start 06/25/20 12:36:00 Stop 06/25/20 14:32:00 Anesthesia Type General Specialty SN Urology Wound Class II - Clean-Contaminated Last Modified By: TATO RIZZO RN 06/25/20 14:35:38 [facility] IntraOp Surgical Procedures Audit 06/25/20 14:35:38 Ornamental Iron Worker Apprentice: JUSTICE Modifier: [email or web address] 1 <*> Procedure Prostatectomy Radical Robotic 1 <+> Stop 06/25/20 13:48:33 Ornamental Iron Worker Apprentice: JUSTICE Modifier: NICOO 1 <*> Procedure Prostatectomy Radical Robotic 1 <+> Start 1 <*> Additional Procedure Description ROBOTIC PROSTATECTOMY WITH NODES [facility] IntraOp Time Out Entry 1 Procedure to be Prostatectomy Radical Performed Robotic Time Out Time Out Pause Time 06/25/20 12:35:00 All activity Yes suspended (unless life threatening emergency) Team Verbally Correct patient Confirms Information identity, Correct side and site are marked, Consent form is present and accurate, Agreement on the procedure to be done, Correct patient position, Relevant images/results properly labeled/appropriately displayed, Confirm antibiotics have been administered, Confirm the skin prep has dried, Confirm prosthesis/implant/devic e is present, Performed in location of procedure after prepped/draped Antibiotic Yes Prophylaxis Administered Or In Progress Within the Last 60 Minutes Beta Jet Yes Administered Venous Yes Thromboembolism Prophylaxis Required Anticipated Critical Events Surgeon None expected Anesthesia Provider Patient specific concerns, None expected Nursing Assures Sterility of instruments Essential Imaging Yes Labeled and Displayed Last Modified By: TATO RIZZO RN 06/25/20 12:53:12 [facility] IntraOp Time Out Audit 06/25/20 12:53:12 Ornamental Iron Worker Apprentice: JUSTICE Modifier: JUSTICE Entry 1 was deleted. Higher numbered entries shifted one position to fill the gap. <-> 1 Beta Jet Administered N/A <-> 1 All activity suspended (unless life Yes threatening emergency) <-> 1 Venous Thromboembolism Prophylaxis N/A Required <-> 1 Antibiotic Prophylaxis Administered Yes Or In Progress Within the Last 60 Minutes <-> 1 Surgeon None expected <-> 1 Anesthesia Provider None expected <-> 1 Nursing Assures Sterility of instruments <-> 1 Essential Imaging Labeled and N/A Displayed <-> 1 Time Out Pause Time <-> 1 Procedure to be Performed Prostatectomy Radical Robotic <-> 1 Team Verbally Confirms Information Correct patient identity, Correct side and site are marked, Consent form is present and accurate, Agreement on the procedure to be done, Correct patient position, Confirm antibiotics have been administered, Confirm the skin prep has dried, Confirm prosthesis/implant/device is present, Performed in location of procedure after prepped/draped, Performed before each procedure if multiple procedures, Reconcile problems if responses among team members differ 06/25/20 12:48:47 Ornamental Iron Worker Apprentice: JUSTICE Modifier: JUSTICE <+> 2 Beta Jet Administered <+> 2 All activity suspended (unless life threatening emergency) <+> 2 Venous Thromboembolism Prophylaxis Required <+> 2 Antibiotic Prophylaxis Administered Or In Progress Within the Last 60 Minutes <+> 2 Surgeon <+> 2 Anesthesia Provider <+> 2 Nursing Assures <+> 2 Essential Imaging Labeled and Displayed <+> 2 Time Out Pause Time <+> 2 Procedure to be Performed <+> 2 Team Verbally Confirms Information Case Comments <None> Finalized By: TATO RIZZO RN Document Signatures Signed By: TATO RIZZO RN 06/25/20 14:39 Electronically signed by Stephanie [facility] Conversion [employer] Cerner at 08/20/2022 9:06 AM CDT documented in this encounter Plan of Treatment Not on file documented as of this encounter Visit Diagnoses Not on filedocumented in this encounter Care Teams Professional Nurse Relationship Specialty Start Date End Date Nithya Mahan MD [address] [place] [address] PCP - General Family Medicine 02/02/23 documented as of this encounter
--- OUTSIDE RECORDS SUMMARY | 2025-02-02 12:07 | XMS_ITS | Encounter Summary ---
Author Organization [employer] ([place], [place], [place], [place]) Address [address] [place] [address] Care Team Providers Care Hot Walker Name Role Phone Nithya Mahan MD Primary Care Provider [phone] Encounter Details Date Type Department Care Team (Late st Contact Info) Description 06/25/2020 Transcribed Document [facility] [place] Family Medicine [place]ly [place] [address] ProviderPrakash MD [address] [place] [address] Social History Tobacco Use Types Packs/Day Years Used Date Smoking Tobacco: Never Assessed Sex and Gender Information Value Date Recorded Sex Assigned at Not on file Legal Sex Male 2:15 PM CDT Gender Identity Not on file Sexual Orientation Not on file documented as of this encounter Miscellaneous Notes * Cerner Conversion Note - Prakash Caldera MD - 06/25/2020 12:36 PM GRAIN ROASTER DANIELA Main OR PreOp Summary Primary Physician: ANGELIA BURROUGHS JR, MD-URO Finalized Date/Time: 06/25/20 13:43:06 Pt. Name: NEFTALI DAVENPORT/Sex: 1950 Male Med Rec #: [id number] Physician: ANGELIA BURROUGHS JR, MD-URO Financial #: [id number] Pt. Type: O Room/Bed: Admit/Disch: 06/25/20 04:19:00 - Institution: [facility] PreOp Case Times Entry 1 In Preop 06/25/20 09:25:00 Ready for Holding n/a Room Patient Ready for 06/25/20 10:40:00 Surgery Patient Out of Preop 06/25/20 12:12:00 Patient Out of n/a Holding Room Last Modified By: FATOUMATA HERRERA RN 06/25/20 13:43:04 DANIELA PreOp Case Times Audit 06/25/20 13:43:04 Roll Tension Tester: HARDINJA Modifier: [email or web address] <+> 1 Patient Out of Preop 06/25/20 10:56:11 Roll Tension Tester: HARDINJA Modifier: HARDINJA <+> 1 Patient Ready for Surgery Finalized By: FATOUMATA HERRERA, RN Document Signatures Signed By: FATOUMATA HERRERA RN 06/25/20 13:43 documented in this encounter Plan of Treatment Not on file documented as of this encounter Visit Diagnoses Not on filedocumented in this encounter Care Teams Hot Walker Relationship Specialty Start Date End Date Nithya Mahan MD [address] [place] [id number] PCP - General Family Medicine 02/02/23 documented as of this encounter
--- OUTSIDE RECORDS SUMMARY | 2025-02-02 12:07 | XMS_ITS | Encounter Summary ---
Author Organization Healthcare Address [address] [place] [address] Care Team Providers Care Internal Wholesaler Name Role Phone Nithya Mahan MD Primary Care Provider [phone] Encounter Details Date Type Department Care Team (Late st Contact Info) Description 12/10/2023 Outside Procedure External Location [address] [place] [address] Marcella Vasquez DRILLER HELPER [address] [place] [address] Social History Tobacco Use Types [...] Never 04/09/2023 How often do you attend islam or yarsani serv ices? Never 04/09/2023 Do you belong to any clubs o r organizations such as islam groups, unions, fraternal or athletic groups, or [...] Recorded Patient Health Questionnaire-2 Score 0 12/10/2023 [facility] - Occupational Stress Questionnaire Answer Date Recorded [...] place to sleep or slept in a jail (including now)? No 12/10/2023 Safety and Environment [...] hopeless Not at all 12/10/2023 9:21 AM Kylie Lovell Patient Health Questionnaire -2 Score 0 12/10/2023 9:21 AM Kylie Lovell documented as of this encounter Plan of Treatment Not on file documented as of this encounter Procedures Procedure Name Priority Date/Time Associated Diagnosis Comments XR HIP RIGHT 2 OR 3 VIEWS 12/10/2023 10:24 AM EDT documented in this encounter Results * XR Hip Right 2 or 3 Views (12/10/2023 10:24 AM EDT) Anatomical Region Laterality Modality Lower Extremities, Hip Right Digital R adiography 12/10/2023 10:2 4 AM EDT Narrative 12/13/2023 1:54 [place] [address] Name: NEFTALI DAVENPORT Exam Date: 12/10/2023 : 1950 Age 73 years Gender: M Physician: MARCELLA VASQUEZ Facility: [facility] Facility HSV: Outpatient Exam: HIP 2 VIEW RT PROCEDURE: XR HIP 2 OR MORE VIEWS RIGHT CLINICAL INDICATION: Right hip pain. COMPARISON: None VIEWS: 2 views: Right hip FINDINGS: No fracture or malalignment. Faint lucency in the lateral aspect of the acetabulum. No suspicious bone lesion. Surgical clips overlie the pelvis. 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 This dictation was performed using voice recognition software and some phonetic and grammatical errors may have been missed in proofreading. Electronically signed by:Tim Ortiz MD12/13/2023 01:50 PM EDT Dictated By: Tim Ortiz Transcribed By: Transcribed On: 12/10/2023 10:44 AM Electronically signed by: Tim Ortiz 12/10/2023 Thank you for referring NEFTALI DAVENPORT to [facility]. Legally authenticated by ALEXANDRE SUGGS 2023-12-10 10:44:59 Procedure Note Provider, [facility] - 12/13/2023 [place] [address] Name: NEFTALI DAVENPORT Exam Date: 12/10/2023 : 1950 Age 73 years Gender: M Physician: MARCELLA VASQUEZ Facility: [facility] Facility HSV: Outpatient Exam: HIP 2 VIEW RT PROCEDURE: XR HIP 2 OR MORE VIEWS RIGHT CLINICAL INDICATION: Right hip pain. COMPARISON: None VIEWS: 2 views: Right hip FINDINGS: No fracture or malalignment. Faint lucency in the lateral aspect of the acetabulum. No suspicious bone lesion. Surgical clips overlie the pelvis. 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 This dictation was performed using voice recognition software and some phonetic and grammatical errors may have been missed in proofreading. Electronically signed by:Tim Ortiz MD12/13/2023 01:50 PM EDT RP Dictated By: Tim Ortiz Transcribed By: Transcribed On: 12/10/2023 10:44 AM Electronically signed by: Tim Ortiz 12/10/2023 Thank you for referring NEFTALI DAVENPORT to [facility]. Legally authenticated by ALEXANDRE SUGGS 2023-12-10 10:44:59 Marcella Vasquez DRILLER HELPER IMG XR PROCEDURES Final Res ult documented in this encounter Visit Diagnoses Not on filedocumented in this encounter Additional Health Concerns Assessment Noted Time A fall risk assessment has been complete d for the patient 12/10/2023 9:21 AM EDT A Body Mass Index follow-up plan has been documented for the patient 12/10/2023 10:03 AM EDT documented as of this encounter Care Teams Internal Wholesaler Relationship Specialty Start Date End Date Nithya Mahan MD [address] [place] [id number] PCP - General 09/13/20 documented as of this encounter
--- OUTSIDE RECORDS SUMMARY | 2025-02-02 12:08 | XMS_ITS | Encounter Summary ---
Author Organization [employer] ([place], [place], [place], [place]) Address [address] [place] [address] Care Team Providers Care Aquaculture Worker Name Role Phone Nithya Mahan MD Primary Care Provider [phone] Encounter Details Date Type Department Care Team (Late st Contact Info) Description 06/26/2020 Transcribed Document [facility] Family Medicine [facility] [place] [address] ProviderPrakash MD [address] [place] [id number] Social History Tobacco Use Types Packs/Day Years Used Date Smoking Tobacco: Never Assessed Sex and Gender Information Value Date Recorded Sex Assigned at Not on file Legal Sex Male 2:15 PM CDT Gender Identity Not on file Sexual Orientation Not on file documented as of this encounter Miscellaneous Notes * Cerner Conversion Note - Prakash Caldera MD - 06/26/2020 8:19 AM MARQUETRY WORKER Patient: NEFTALI DAVENPORT Age: 70 years Sex: Male : 1950 Associated Diagnoses: None Author: ANGELIA BURROUGHS JR, MD-URO Doing well this morning Reports flatus Pain well controlled Abdomen benign Holland catheter has clear yellow urine Ambulate Hopefully home later today HAIR drain out prior to discharge Home with Holland catheter Electronically signed by Stephanie [facility] Conversion Manhole Stripper Cerner at 08/20/2022 8:59 AM CDT documented in this encounter Plan of Treatment Not on file documented as of this encounter Visit Diagnoses Not on filedocumented in this encounter Care Teams Aquaculture Worker Relationship Specialty Start Date End Date Nithya Mahan MD [address] [place] [id number] PCP - General Family Medicine 02/02/23 documented as of this encounter
--- OUTSIDE RECORDS SUMMARY | 2025-02-02 12:08 | XMS_ITS | Encounter Summary ---
Author Organization Healthcare Address [address] [place] [address] Care Team Providers Care Diamond Merchant Name Role Phone Nithya Mahan MD Primary Care Provider [phone] Reason for Visit * Reason Comments Med Refill Encounter Details Date Type Department Care Team (Late st Contact Info) Description 12/11/2024 [facility] [address] [place] [address] Nithya Mahan MD [address] [place] [address] Coronary arteriosclerosis; Essential hypertension; Greer's esophagus without dysplasia Social History Tobacco Use Types Packs/Day Years Used Date Smoking Tobacco: Former Cigarettes 1 19 05 963 - 1979 Passive Smoke Exposure: Past [...] Never 04/09/2023 How often do you attend druze or rastafarian serv ices? Never 04/09/2023 Do you belong to any clubs o r organizations such as druze groups, unions, fraternal or athletic groups, or [...] Date Recorded Patient Health Questionnaire-2 Score 0 02/29/2024 [facility]at ional [facility] - Occupational Stress Questionnaire Answer Date Recorded [...] place to sleep or slept in a alf (including now)? No 12/10/2023 Safety and Environment [...] as of this encounter Miscellaneous Notes * Telephone Encounter - Lucy Cedillo PharmD - 12/12/2024 7:55 AM EDT 4 medication(s) has been approved per protocol. Appt requested to be scheduled by [facility]. Patient must schedule an appointment and be seen in clinic for additional refills. documented in this encounter Plan of Treatment Not on file documented as of this encounter Visit Diagnoses Diagnosis Coronary arteriosclerosis Coronary atherosclerosis of unspecified type of vessel, rincon or graft Essential hypertension Unspecified essential hypertension Greer's esophagus without dysplasia documented in this encounter Additional Health Concerns Assessment Noted Time A fall risk assessment has been complete d for the patient 02/29/2024 9:00 AM EDT A Body Mass Index follow-up plan has been documented for the patient 02/29/2024 9:54 AM EDT documented as of this encounter Care Teams Diamond Merchant Relationship Specialty Start Date End Date Nithya Mahan MD [address] [place] [address] PCP - General 09/13/20 documented as of this encounter
--- OUTSIDE RECORDS SUMMARY | 2025-02-02 12:08 | XMS_ITS | Encounter Summary ---
Author Organization Healthcare Address [address] [place] [address] Care Team Providers Care Supervisor Bridges And Buildings Name Role Phone Nithya Mahan MD Primary Care Provider [phone] Encounter Details Date Type Department Care Team (Late st Contact Info) Description 08/07/2024 Outside Procedure External Location [address] [place] [address] Gurinder Mendoza MD [address] [place] [address] Social History Tobacco Use Types Packs/Day Years Used Date Smoking Tobacco: Former Cigarettes 1 17 1 963 - 1980 Passive Smoke Exposure: Past Smokeless Tobacco: Never [...] Never 04/09/2023 How often do you attend jehovah's witness or pentecostal serv ices? Never 04/09/2023 Do you belong to any clubs o r organizations such as jehovah's witness groups, unions, fraternal or athletic groups, or [...] Recorded Patient Health Questionnaire-2 Score 0 02/29/2024 [facility] of Occupat ional [facility] - Occupational Stress Questionnaire Answer Date [...] place to sleep or slept in a fpc (including now)? No 12/10/2023 Safety and Environment [...] on file documented as of this encounter Plan of Treatment Not on file documented as of this encounter Procedures Procedure Name Priority Date/Time Associated Diagnosis Comments ECHO, ADULT TRANSTHORACIC COMPLETE W/ COLOR AND DOPPLER 08/07/2024 10:10 AM EDT documented in this encounter Results * Echo, Adult Transthoracic Complete w/ Color and Doppler (08/07/2024 10:10 AM EDT) Anatomical Region Laterality Modality Ultrasound 08/07/2024 10:1 0 AM EDT Narrative 08/07/2024 11:52 [place] [address] Name: NEFTALI DAVENPORT Exam Date: 08/07/2024 : 1950 Age 74 years Gender: M Physician: GURINDER MENDOZA Facility: [facility] Facility HSV: Outpatient Exam: ECHO W SPEC COLOR FLOW Reason for Study: SANTOS, pre-op evaluation SUMMARY Normal LV size with normal function. The ejection fraction is 65-70%. Normal diastolic function. There is mild aortic regurgitation. There is mild tricuspid regurgitation. Normal PA pressure (30 mmHg). INTERPRETATION DETAIL Good quality study. Left ventricle: The left ventricle is normal in size with normal systolic function. The ejection fraction is 65-70%. There is normal LV wall thickness. LV geometry is normal. The left ventricular wall motion is normal. Mitral filling indicates Normal diastolic function. Left atrium: The left atrium is normal. LA volume: 65.5mL, LA volume index: 31.8mL/mA . Right ventricle: The right ventricle is normal in size with normal function. Right atrium: The right atrium is normal. Mitral valve: The mitral valve is normal. There is no mitral stenosis. There is no mitral regurgitation. Aortic valve: The aortic valve is trivially calcified. There is with a valve area of 3.51 cream tester (Peak grad=6mmHg, Mean grad=3mmH g, LVOT peggy=2.30cm, LVOT TVI=24.7cm, Ao TVI=29.2cm). The dimensionless index is 0.85. AV peak sveefqmo=400lx/sec. There is mild aortic regurgitation. (AR Decel= 1.335 m/secA ). AR pressure half ndzx=770yj. Tricuspid valve: The tricuspid valve is normal. There is mild tricuspid regurgitation. PASP= 30 mmHg, RAP=7mmHg. Pulmonic valve: The pulmonic valve is normal. Pericardium: The pericardium is normal. Pulmonary artery: The pulmonary artery is normal. Interatrial septum: The interatrial septum is normal. Aorta: The aorta is normal. The aortic root is normal. Aortic dimension - Ascending=3.20cm. Vena Cava: The inferior vena cava is normal. MEASUREMENTS Left Ventricle IVSd: 0.88cm (0.6-1.1cm) PWd: 0.97cm (0.6-1.1cm) Mass Parvin: 140g LVMI: 68g/mA (>50-95g/m) LVIDd: 4.54cm (3.7-5.6 cm) LVIDdI: 2.20cm/m2 LVIDs: 3.20cm (1.8-4.2 cm) LVIDsI: 1.55cm/m2 RWT: 0.43 (<0.42) E to A: 0.79 (0.6-2) E-e prime med: 11.14 E-e prime lat: 8.67 Decel: 322.00ms (168-232ms) Right Ventricle Legally authenticated by ANGELIA Palm 2024-08-07 11:49:50 Mid RV Peggy: 3.1cm (2.7-3.3cm) Max Valve Velocities AV peak gregoria: 124cm/sec LVOT: 112.00cm/sec Pulmonary RAP: 7mmHg PASP: 30mmHg Atria LA AP: 3.9cm LA vol: 65.5mL THOMAS: 31.8mL/mA (16-28ml/m2) Gurinder Mendoza MD Dictated By: GURINDER MENDOZA Transcribed By: Transcribed On: 08/07/2024 11:49 AM Electronically signed by: GURINDER MENDOZA 08/07/2024 Thank you for referring NEFTALI DAVENPORT to [facility]. Legally authenticated by ANGELIA Palm 2024-08-07 11:49:50 Procedure Note Provider, [facility] - 08/07/2024 [place] [id number] Name: NEFTALI DAVENPORT Exam Date: 08/07/2024 : 1950 Age 74 years Gender: M Physician: GURINDER MENDOZA Facility: [facility] Facility HSV: Outpatient Exam: ECHO W SPEC COLOR FLOW Reason for Study: SANTOS, pre-op evaluation SUMMARY Normal LV size with normal function. The ejection fraction is 65-70%. Normal diastolic function. There is mild aortic regurgitation. There is mild tricuspid regurgitation. Normal PA pressure (30 mmHg). INTERPRETATION DETAIL Good quality study. Left ventricle: The left ventricle is normal in size with normal systolic function. The ejection fraction is 65-70%. There is normal LV wall thickness. LV geometry is normal. The left ventricular wall motion is normal. Mitral filling indicates Normal diastolic function. Left atrium: The left atrium is normal. LA volume: 65.5mL, LA volume index: 31.8mL/mA . Right ventricle: The right ventricle is normal in size with normal function. Right atrium: The right atrium is normal. Mitral valve: The mitral valve is normal. There is no mitral stenosis. There is no mitral regurgitation. Aortic valve: The aortic valve is trivially calcified. There is with a valve area of 3.51 cream tester (Peak grad=6mmHg, Mean grad=3mmH g, LVOT peggy=2.30cm, LVOT TVI=24.7cm, Ao TVI=29.2cm). The dimensionless index is 0.85. AV peak hjymaqds=454lf/sec. There is mild aortic regurgitation. (AR Decel= 1.335 m/secA ). AR pressure half ygkj=416pd. Tricuspid valve: The tricuspid valve is normal. There is mild tricuspid regurgitation. PASP= 30 mmHg, RAP=7mmHg. Pulmonic valve: The pulmonic valve is normal. Pericardium: The pericardium is normal. Pulmonary artery: The pulmonary artery is normal. Interatrial septum: The interatrial septum is normal. Aorta: The aorta is normal. The aortic root is normal. Aortic dimension - Ascending=3.20cm. Vena Cava: The inferior vena cava is normal. MEASUREMENTS Left Ventricle IVSd: 0.88cm (0.6-1.1cm) PWd: 0.97cm (0.6-1.1cm) Mass Parvin: 140g LVMI: 68g/mA (>50-95g/m) LVIDd: 4.54cm (3.7-5.6 cm) LVIDdI: 2.20cm/m2 LVIDs: 3.20cm (1.8-4.2 cm) LVIDsI: 1.55cm/m2 RWT: 0.43 (<0.42) E to A: 0.79 (0.6-2) E-e prime med: 11.14 E-e prime lat: 8.67 Decel: 322.00ms (168-232ms) Right Ventricle Legally authenticated by ANGELIA Palm 2024-08-07 11:49:50 Mid RV Peggy: 3.1cm (2.7-3.3cm) Max Valve Velocities AV peak gregoria: 124cm/sec LVOT: 112.00cm/sec Pulmonary RAP: 7mmHg PASP: 30mmHg Atria LA AP: 3.9cm LA vol: 65.5mL THOMAS: 31.8mL/mA (16-28ml/m2) Gurinder Mendoza MD Dictated By: GURINDER MENDOZA Transcribed By: Transcribed On: 08/07/2024 11:49 AM Electronically signed by: GURINDER MENDOZA 08/07/2024 Thank you for referring NEFTALI DAVENPORT to [facility]. Legally authenticated by ANGELIA Palm 2024-08-07 11:49:50 Gurinder Mendoza MD CV ECHO PROCEDURES Final Resu lt documented in this encounter Visit Diagnoses Not on filedocumented in this encounter Additional Health Concerns Assessment Noted Time A fall risk assessment has been complete d for the patient 02/29/2024 9:00 AM EDT A Body Mass Index follow-up plan has been documented for the patient 02/29/2024 9:54 AM EDT documented as of this encounter Care Teams Supervisor Bridges And Buildings Relationship Specialty Start Date End Date Nithya Mahan MD [address] [place] [id number] PCP - General 09/13/20 documented as of this encounter
--- OUTSIDE RECORDS SUMMARY | 2025-02-02 12:08 | XMS_ITS | Encounter Summary ---
Author Organization [employer] ([place], [place], [place], [place]) Address [address] [place] [address] Care Team Providers Care Pattern Wheel Maker Name Role Phone Nithya Mahan MD Primary Care Provider [phone] Encounter Details Date Type Department Care Team (Late st Contact Info) Description 06/26/2020 Transcribed Document [facility] [address] ProviderPrakash MD [address] [place], [place] [id number] Social History Tobacco Use Types Packs/Day Years Used Date Smoking Tobacco: Never Assessed Sex and Gender Information Value Date Recorded Sex Assigned at Not on file Legal Sex Male 2:15 PM CDT Gender Identity Not on file Sexual Orientation Not on file documented as of this encounter Miscellaneous Notes * Cerner Conversion Note - Prakash Caldera MD - 06/26/2020 9:12 AM CONCRETE MIXING PLANT LABORER Initial Discharge Planning Entered On: 06/26/2020 9:15 EST Performed On: 06/26/2020 9:12 EST by Penelope Atwood Rn Initial Assessment I Previously Documented Living Environment : No qualifying data available. Living Situation : Home Patient Lives With : Spouse Is the Patient a Caregiver at Home? : No Emergency Contact #1 : Amanda Davenport Emergency Contact #1 Emergency Contact #1 Relationship : spouse Emergency Contact #2 : . Emergency Contact #2 Phone Number : . Emergency Contact #2 Relationship : . Enter Doctors Name : Terrie Dale Does Patient have PCP Listed? : Yes Legal Guardian : No Is Guardianship Needed : No Penelope Atwood Rn - 06/26/2020 9:12 EST Initial Assessment II Sensory and Motor Deficits : None Current Home Treatments and Equipment : None Services and Community Resources : Other: NA Does the Patient have a Floor to SNF Benefit? : No Penelope Atwood Rn - 06/26/2020 9:12 EST Discharge Needs I Anticipated Discharge Date : 06/26/2020 EST Anticipated Discharge To, CM : Home independently Current Home Treatment/Equipment : Current Home Treatment/Equipment No qualifying data available. Post Acute/Home Treatments : None Documentation Status Complete : Yes Penelope Atwood Rn - 06/26/2020 9:12 EST Discharge Needs II Professional Skilled Services : Professional Skilled Services No qualifying data available. Services and Community Resources : Other: NA Needs Assistance with Transportation : No Discharge Options Discussed with Patient : Discharge transportation, DME, Home Health Penelope Atwood Rn - 06/26/2020 9:12 EST Narrative Note Narrative Note : 70yo male patient who was admitted for prostatectomy due to prostate CA. patient is a low risk for RA with Boost 4. ELOS 1-2days. patient lives with spouse who will provide transportation upon dc. patient denies any pre hospitalization services/DME. current with PCP. demographics verified. PLAN: patient will dc home today with and no anticipated CM needs. CM will follow for final MD recs. Penelope Atwood Rn - 06/26/2020 9:12 EST documented in this encounter Plan of Treatment Not on file documented as of this encounter Visit Diagnoses Not on filedocumented in this encounter Care Teams Pattern Wheel Maker Relationship Specialty Start Date End [place] [address] PCP - General Family Medicine 02/02/23 documented as of this encounter
--- OUTSIDE RECORDS SUMMARY | 2025-02-02 12:08 | XMS_ITS | Encounter Summary ---
Author Organization [employer] ([place], [place], [place], [place]) Address [address] [place] [address] Care Team Providers Care College Hire Name Role Phone Nithya Mahan MD Primary Care Provider [phone] Encounter Details Date Type Department Care Team (Late st Contact Info) Description 07/05/2020 Transcribed Document [facility] [place] [address] ProviderPrakash MD [address] [place], [place] [id number] Social History Tobacco Use Types Packs/Day Years Used Date Smoking Tobacco: Never Assessed Sex and Gender Information Value Date Recorded Sex Assigned at Not on file Legal Sex Male 2:15 PM CDT Gender Identity Not on file Sexual Orientation Not on file documented as of this encounter Miscellaneous Notes * Cerner Conversion Note - Prakash Caldera MD - 07/05/2020 3:27 PM DOCK BUILDER DATE OF PROCEDURE: 06/25/2020 SURGEON: Holger Schwartz MD REASON FOR INTRAOPERATIVE CONSULTATION: Possible rectosigmoid injury. PROCEDURE PERFORMED: Flexible proctosigmoidoscopy. INDICATION FOR PROCEDURE: Mr. Davenport is a 70-year-old male, who was undergoing a robotic prostatectomy by Dr. Bagley and during the procedure, it was felt that due to extensive lysis of adhesion of the rectosigmoid junction, it will be better suited to have a flexible sigmoidoscopy with a leak test to better assurance that there was no full-thickness injury to the colon. DESCRIPTION OF PROCEDURE: Therefore, when the procedure was finalized by Dr. Bagley, which is dictated separately, I proceeded to find the patient prepped and draped on a lithotomy position and I proceeded to advance the flexible scope through the patient's anus up still all the way to the rectum and sigmoid colon. Even though, there was a solid fecal material, a good look of the mucosa was obtained. There was no blood or signs of full-thickness injury. I insufflated the rectosigmoid junction and with the pelvis full of fluid, there was no bubbling confirmed laparoscopically. Therefore, I retrieved the scope slowly through the sigmoid and the rectum with no other gross pathology found. I finalized the procedure at that point, and Dr. Bagley finished all laparoscopic portion of the procedure. /[id number] Holger Schwartz MD [place]/AQ / [place] / MODL /[id number] Electronically signed by Stephanie, [facility] Conversion Cattle Trader Cerner at 08/20/2022 9:04 AM CDT documented in this encounter Plan of Treatment Not on file documented as of this encounter Visit Diagnoses Not on filedocumented in this encounter Care Teams College Hire Relationship Specialty Start Date End Date Nithya Mahan MD [address] [place] [id number] PCP - General Family Medicine 02/02/23 documented as of this encounter
--- OUTSIDE RECORDS SUMMARY | 2025-02-02 12:08 | XMS_ITS | Encounter Summary ---
Author Organization [employer] ([place], [place], [place], [place]) Address [address] [place] [address] Care Team Providers Care Electronic Parts Salesperson Name Role Phone Nithya Mahan MD Primary Care Provider [phone] Encounter Details Date Type Department Care Team (Late st Contact Info) Description 06/17/2020 Transcribed Document [facility] [place] [facility] [place] [address] ProviderPrakash MD [address] [place], [place] [id number] Social History Tobacco Use Types Packs/Day Years Used Date Smoking Tobacco: Never Assessed Sex and Gender Information Value Date Recorded Sex Assigned at Not on file Legal Sex Male 2:15 PM CDT Gender Identity Not on file Sexual Orientation Not on file documented as of this encounter Miscellaneous Notes * Cerner Conversion Note - Prakash Caldera MD - 06/17/2020 9:47 AM EXPANSION JOINT FINISHER PAT Adult Entered On: 06/17/2020 10:57 EST Performed On: 06/17/2020 9:47 EST by Genet Vasques RN Vital Measurements Temperature Source : Temporal artery scanning Temperature Mode : Fahrenheit Temperature, Fahrenheit : 97.4 Deg F Clinical Temperature, C : 36.3 Deg C Pulse Method : Non-Invasive BP Device Pulse Source : Radial, Left Peripheral Pulse Rate : 59 bpm (LOW) Pulse Rhythm : Regular Respiratory Rate : 16 Breaths/Min Blood Pressure Location : Arm, left upper Blood Pressure Source : Non-Invasive BP Device Blood Pressure Position : Sitting Systolic Blood Pressure : 133 mmHg Diastolic Blood Pressure : 61 mmHg Oxygen Saturation : 97 % Oxygen Therapy Mode : Room air Genet Vasques RN - 06/17/2020 9:47 EST Height and Weight, Clinical Dosing Height Source : Stated Height Entry Format : [place] Height, Feet : 6 ft(Converted to: 183 cm, 72 Inch) Height, Inches : 0 Inch(Converted to: 0 ft 0 Inch, 0.00 cm) Clinical Height : 182.88 cm Weight Source : Standing scale Weight Entry Format : [place] Clinical Dosing Weight : 88.64 kg Weight, Pounds : 195 lb Body Surface Area (BSA) : 2.11 m2 Body Mass Index : 26.5 kg/m2 (HI) [place] Body Weight : 77 kg Genet Vasques RN - 06/17/2020 9:47 EST Health Histories Smoking Status : Former smoker, quit more than 30 days ago Smokeless Tobacco Status : Never Genet Vasques RN - 06/17/2020 9:47 EST Social History (As Of: 06/17/2020 10:57:09 EST) Tobacco: Used Tobacco, but Quit Yes. [...] 06/17/2020 09:50:22 EST by Genet Vasques RN) Infectious Disease History Has the patient ever been tested for COVID-19? : Yes, Patient stated results Negative Date of COVID-19 test known? : No Date Comment : May 2020 Does patient have symptoms of COVID-19? : No COVID19 Screening : No Experiencing Infectious Disease Symptoms : No symptoms Physical contact outside [place] in the last 30 days : No Infectious Disease History : Measles, Mumps Tuberculosis Symptoms : None Genet Vasques RN - 06/17/2020 9:47 EST COVID19 PreProcedure Screening Is this an Emergent or Add on Procedure? : No Date PreProcedure COVID-19 test known? : No Has patient been isolated since the test : No Exposed to COVID19 symptoms since test? : No Genet Vasques RN - 06/17/2020 9:47 EST Anesthesia/Transfusion History Family History of Anesthesia Reaction : Unknown Transfusion History : Prior anesthesia without reaction Family History of Anesthesia Reaction : None Genet Vasques RN - 06/17/2020 9:47 EST Functional Assessment Functional ADL Evaluation Index EBN Bathing : Independent (2) Dressing : Independent (2) Toileting : Independent (2) Transferring Bed or Chair : Independent (2) Continence : Independent (2) Feeding : Independent (2) Genet Vasques RN - 06/17/2020 9:47 EST ADL Index Score : 12 Genet Vasques RN - 06/17/2020 9:47 EST Advance Directive Patient has Advance Directive *Q : No, patient refuses Advance Directive information Genet Vasques RN - 06/17/2020 9:47 EST Emanuel Suicide Severity Rating Scale (C-SSRS) CSSRS Past Month Wish to be : No CSSRS Past Month Suicidal Thoughts : No CSSRS Lifetime Suicide Behavior : No Suicide Severity Rating Score : 0 Suicide Severity Rating : No Additional Care Required at this time Genet Vasuqes RN - 06/17/2020 9:47 EST Psychosocial History Currently in Unsafe Situation : No Genet Vasques RN - 06/17/2020 9:47 EST Teaching/Learning Assessment Barriers To Learning : None evident Individuals Taught : Patient Readiness to Learn : Cooperative Highest Level of Education : None Baseline Knowledge of Topic : None Readiness to Learn : Explanation, Printed materials Learning Style Preferences Patient : None Learning Style Preferences Family : None Genet Vasques RN - 06/17/2020 9:47 EST Education Topics, Periop Preadmission Perioperative Education Grid IV's : Verbalizes understanding NPO Status/Directions : Verbalizes understanding Pain Management : Verbalizes understanding Postoperative Care Preparations : Verbalizes understanding Preprocedure Preparations : Verbalizes understanding Preprocedure Tests/Labs : Verbalizes understanding Remove Body Piercings : Verbalizes understanding Responsible Adult : Verbalizes understanding Take/Hold Medications Pre-Procedure : Verbalizes understanding Genet Vasques RN - 06/17/2020 9:47 EST General Info Support Person/Pt Rep Name : Amanda Doss Family/Rep/Phys Notified of Admit : No Emergency Contact #1 : Amanda Davenport Emergency Contact #1 Emergency Contact #1 Relationship : spouse Emergency Contact #2 : . Emergency Contact #2 Phone Number : . Emergency Contact #2 Relationship : . Primary Language : Bermudian Preferred Communication Mode : Verbal Communication Barrier : None Fire Control Technician B Needed : No Genet Vasques RN - 06/17/2020 9:47 EST Saeid Scale Saeid Sensory Perception : Slightly limited Saeid Moisture : Rarely moist Saeid Activity : Walks occasionally Saeid Mobility : No limitation Saeid Nutrition : Adequate Saeid Friction and Shear : No apparent problem Saeid Score : 20 Genet Vasques RN - 06/17/2020 9:47 EST Sleep Apnea Risk Assmt Hx of Obstructive Sleep Apnea Diagnosis : No Snore Loudly : Yes Tired, Fatigued, or Sleepy During Day : No Observed Stopping Breathing During Sleep : No Have/Are Being Treated for Hypertension : Yes BMI Greater Than 35 kg/m2 : No Age over 50 Years Old : Yes Gender Male : Yes Genet Vasques RN - 06/17/2020 9:47 EST Electronically signed by Stephanie [facility] Conversion Client Relations Representative Cerner at 08/20/2022 9:23 AM CDT documented in this encounter Plan of Treatment Not on file documented as of this encounter Visit Diagnoses Not on filedocumented in this encounter Care Teams Electronic Parts Salesperson Relationship Specialty Start Date End Date Nithya Mahan MD [address] [place] [address] PCP - General Family Medicine 02/02/23 documented as of this encounter
--- OUTSIDE RECORDS SUMMARY | 2025-02-02 12:08 | XMS_ITS | Encounter Summary ---
Author Organization Healthcare Address [address] [place] [address] Care Team Providers Care Offshore Wind Turbine Technician Name Role Phone Nithya Mahan MD Primary Care Provider [phone] Jeniffer Bhagat LPN Unavailable Unavailab le Encounter Details Date Type Department Care Team (Late st Contact Info) Description 11/13/2021 Outside Procedure External Location [address] [place] [address] Nithya Mahan MD [address] [place] [address] Social History Tobacco Use Types Packs/Day Years Used Date Smoking Tobacco: Former Cigarettes 1 17 1 963 - 1980 Smokeless Tobacco: Never Alcohol Use Standard Drinks/Week Comments Yes 0 (1 standard drink = 0.6 oz pur e alcohol) PHQ-2 Answer Date Recorded Patient Health Questionnaire-2 Score 0 02/25/2021 Sex and Gender Information Value Date Recorded Sex Assigned at Not on file Legal Sex Male 8:49 PM EDT Gender Identity Not on file Sexual Orientation Not on file documented as of this encounter Plan of Treatment Not on file documented as of this encounter Procedures Procedure Name Priority Date/Time Associated Diagnosis Comments VAS US CAROTID DUPLEX BILATERAL 11/13/2021 8:50 AM EDT documented in this encounter Results * VAS US Carotid Duplex Bilateral (11/13/2021 8:50 AM EDT) Anatomical Region Laterality Modality Head, Neck, Vascular Ultrasound 11/13/2021 8:50 AM EDT Narrative 11/13/2021 2:36 PM EDT [address] [address] Name: NEFTALI DAVENPORT Exam Date: 11/13/2021 : 1950 Age 71 Gender: M Physician: NITHYA SHABAZZ Facility: [facility] Facility HSV: Outpatient Exam: CAROTID DUPLEX US DOPLR CAROTID DUPLEX DOPPLER ULTRASOUND HISTORY: Visual changes. Speech changes. Technique: Real-time imaging was performed of the extracranial carotid arteries in transverse and longitudinal planes, with color duplex evaluation of blood flow velocity. Spectral analysis was performed. The cervicovertebral arteries were also examined. Right carotid system: CCA: 155 cm/s ICA: 111 cm/s ECA: 107 cm/s Vertebral artery: Antegrade ICA/CCA ratio: 0.7 to Moderate plaque is identified at the bifurcation. Left carotid system: CCA: 79 cm/s ICA: 93 cm/s ECA: 183 cm/s Vertebral artery: Antegrade ICA/CCA ratio: 1.18 Moderate plaque is identified at the bifurcation. IMPRESSION: Interpretation based on validated velocity criteria. Less than 50 % RIGHT ICA stenosis. Less than 50 % LEFT ICA stenosis. Images reviewed, interpreted and dictated by Dr. Bautista. Transcribed by Samy Kim PA-C Dictated By: Delaney Bautista Transcribed By: Delaney Bautista Transcribed On: 11/13/2021 2:25 PM Electronically signed by: Delaney Bautista 11/13/2021 Thank you for referring NEFTALI DAVENPORT to [facility]. Legally authenticated by POPE DELANEY Rosenberg 2021-11-13 14:25:30 Procedure Note Provider, [facility] [place] - 11/13/2021 [place] [address] Name: NEFTALI DAVENPORT Exam Date: 11/13/2021 : 1950 Age 71 Gender: M Physician: NITHYA SHABAZZ Facility: [facility] Facility HSV: Outpatient Exam: CAROTID DUPLEX US DOPLR CAROTID DUPLEX DOPPLER ULTRASOUND HISTORY: Visual changes. Speech changes. Technique: Real-time imaging was performed of the extracranial carotid arteries in transverse and longitudinal planes, with color duplexevaluation of blood flow velocity. Spectral analysis was performed. Thecervicovertebral arteries were also examined. Right carotid system: CCA: 155 cm/s ICA: 111 cm/s ECA: 107 cm/s Vertebral artery: Antegrade ICA/CCA ratio: 0.7 to Moderate plaque is identified at the bifurcation. Left carotid system: CCA: 79 cm/s ICA: 93 cm/s ECA: 183 cm/s Vertebral artery: Antegrade ICA/CCA ratio: 1.18 Moderate plaque is identified at the bifurcation. IMPRESSION: Interpretation based on validated velocity criteria. Less than 50 % RIGHT ICA stenosis. Less than 50 % LEFT ICA stenosis. Images reviewed, interpreted and dictated by Dr. Bautista. Transcribed by Samy Kim PA-C Dictated By: Delaney Bautista Transcribed By: Delaney Bautista Transcribed On: 11/13/2021 2:25 PM Electronically signed by: Delaney Bautista 11/13/2021 Thank you for referring NEFTALI DAVENPORT to [facility]. Legally authenticated by POPE DELANEY Rosenberg 2021-11-13 14:25:30 us Nithya Mahan MD CV VASCULAR PROCEDURES Final R esult documented in this encounter Visit Diagnoses Not on filedocumented in this encounter Additional Health Concerns Assessment Noted Time A fall risk assessment has been complete d for the patient 02/25/2021 8:55 AM EDT documented as of this encounter Care Teams Offshore Wind Turbine Technician Relationship Specialty Start Date End Date Nithya Mahan MD [address] [place] [address] PCP - General 09/13/20 Jeniffer Bhagat LPN VALUE-BASED TRANSFORMATION PROGRAM Licensed Practical Nurse 04/08/23 05/10/23 documented as of this encounter
--- OUTSIDE RECORDS SUMMARY | 2025-02-02 12:08 | XMS_ITS | Referral Summary ---
Author Organization [employer] ([place], [place], [place], [place]) Address [address] [place] [address] Care Team Providers Care Office Lead Name Role Phone Nithya Mahan MD Primary Care Provider [phone] Allergies Active Allergy Reactions Criticality Noted Date Comments Levofloxacin Other (See Comments) 07/27/2023 Litsbou-Nhm-Our Reductase Inhibitors Other (See Comments) 07/27/2023 Medications omeprazole (PriLOSEC) 40 MG capsule Take 1 capsule (40 mg total) by mouth daily. 3 Active nitroglycerin (NITROSTAT) 0.4 MG SL tablet Nitrostat 0.[address] 1 tablet as needed by sublingual route as directed. Active lisinopriL (PRINIVIL,ZESTR IL) 30 MG tablet Take 1 tablet (30 mg total) by mouth. 2 Active hydroCHLOROthia zide (HYDRODIURIL) 25 MG tablet Take 1 tablet (25 mg total) by mouth daily. 3 Active fenofibrate (TRIGLIDE,LOFIB RA) 160 MG tablet Take 1 tablet (160 mg total) by mouth daily. 3 Active aspirin (Vazalore) 81 mg Cap aspirin Active metoprolol succinate (TOPROL-XL) 50 MG 24 hr tablet Take 1 tablet (50 mg total) by mouth daily. Active imipramine (TOFRANIL) 25 MG tablet Take 1 tablet (25 mg total) by mouth nightly. Active famotidine (PEPCID) 40 MG tablet Take 1 tablet (40 mg total) by mouth daily. 3 Active valsartan (DIOVAN) 40 MG tablet Valsartan 40 MG Oral Tablet QTY: 0 tablet Days: 0 Refills: 0 Written: 01/05/24 Patient Instructions: 4 Active pyridostigmine (MESTINON) 60 mg tabletIndicatio ns:Myasthenia gravis (HCC) Take 1 tablet (60 mg total) by mouth 3 (three) times daily. 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 Peripheral vascular disease 08/20/2015 Myasthenia gravis 07/28/2014 Social History Tobacco Use Types Packs/Day Years Used Date Smoking Tobacco: Former Cigarettes Smokeless Tobacco: Never Tobacco Cessation:Counseling Given: Not Answered Alcohol Use Standard Drinks/Week Comments Never 0 (1 standard drink = 0.6 oz pur e alcohol) Family and Community Support Answer Balbir e Recorded Help with Day to Day Activities Not on file 05/15/2023 Feeling Lonely or Isolated Not on file 05/15 Educational Attainment Answer Date Kris rded Speak language other than Welsh at home Not on file 05/15/2023 Want help with school or training Not on file 05/15/2023 Substance Use Answer Date Recorded Used prescription meds for non-medical reasons N ot on file 05/15/2023 Used illegal drugs past 12 months Not on file 05/15/2023 Sex and Gender Information Value Date Recorded Sex Assigned at Not on file Legal Sex Male 2:15 PM CDT Gender Identity Not on file Sexual Orientation Not on file Last Filed Vital Signs Vital Sign Reading Time Taken Comments Blood Pressure 120/66 08/15/2024 1:49 PM EDT Pulse 49 08/15/2024 1:49 PM EDT Temperature - - Respiratory Rate - - Oxygen Saturation 96% 08/15/2024 1:49 PM EDT Inhaled Oxygen Concentration - - Weight 85 kg (187 lb 6.4 oz) 08/15/2024 1:49 PM EDT Height 182.9 cm (6') 08/15/2024 1:49 PM EDT Body Mass Index 25.42 08/15/2024 1:49 PM EDT Plan of Treatment Not on file Insurance [facility] SUPP MEDICARE PART A B Care Teams Office Lead Relationship Specialty Start Date End Date Nithya Mahan MD [address] [place] [id number] PCP - General Family Medicine 02/02/23
--- OUTSIDE RECORDS SUMMARY | 2025-02-02 12:08 | XMS_ITS | Encounter Summary ---
Author Organization [employer] ([place], [place], [place], [place]) Address [address] [place] [address] Care Team Providers Care Web Marketing Analyst Name Role Phone Nithya Mahan MD Primary Care Provider [phone] Reason for Visit * Reason Comments Medication Refill Encounter Details Date Type Department Care Team (Late st Contact Info) Description 07/12/2022 Refill [facility] Neurology - [facility] [address] [place] [id number] Babak Crisostomo MD [address] [facility] [address] [place] [address] Social History Tobacco Use Types Packs/Day Years [...] on filedocumented in this encounter Care Teams Web Marketing Analyst Relationship Specialty Start Date End Date Nithya Mahan MD [address] [place] [address] PCP - General Family Medicine 02/02/23 documented as of this encounter
--- OUTSIDE RECORDS SUMMARY | 2025-02-02 12:08 | XMS_ITS | Clinical Summary ---
Author Organization Healthcare Address [address] [place] [address] Care Team Providers Care Voice Data Communications Engineer Name Role Phone Nithya Mahan MD Primary Care Provider [phone] Allergies Active Allergy Reactions Criticality Noted Date Comments Atorvastatin Unknown - Patient st ates they do not know rxn details Low 02/20/2019 Levofloxacin Unknown - Patient st ates they do not know rxn details Low 02/24/2021 Medications Aspirin 81 MG capsule aspirin Active nitroglycerin (Nitrostat) 0.4 MG SL tablet Nitrostat 0.[address] 1 tablet as needed by sublingual route as directed. Active pyridostigmine (Mestinon) 60 MG tablet every 6 (six) hours. 02/22/20 20 Active magnesium oxide (Mag-Ox) 400 mg tablet 1 tablet (400 mg) 2 (two) times a day. Active metoprolol succinate XL (Toprol-XL) 50 MG 24 hr tabletIndications:Es sential (primary) hypertension Take 1 tablet (50 mg) by mouth 1 (one) time each day. Do not crush or chew. 90 tablet 3 02/29/20 24 Active famotidine (Pepcid) 40 MG tabletIndications:Ba rrett's esophagus without dysplasia Take 1 tablet (40 mg) by mouth 1 (one) time each day. 90 tablet 3 02/29/20 24 Active fenofibrate (Triglide) 160 MG tabletIndications:Co ronary arteriosclerosis TAKE 1 TABLET BY MOUTH ONCE DAILY 90 tablet 12/13/19 25 Active lisinopril 30 MG tabletIndications:Es sential hypertension TAKE 1 TABLET BY MOUTH ONCE DAILY 90 tablet 12/13/19 25 Active omeprazole (PriLOSEC) [address] capsuleIndications:B arrett's esophagus without dysplasia TAKE 1 CAPSULE BY MOUTH 1 TIME EVERY DAY 90 capsule 12/13/19 25 Active hydroCHLOROthiazide (HYDRODiuril) 25 MG tabletIndications:Es sential hypertension TAKE 1 TABLET BY MOUTH ONCE DAILY 90 tablet 12/13/19 25 Active Active Problems Problem Noted Date Diagnosed Date Routine general medical examination at [facility] 04/15/2023 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 04/15/2023 Hereditary and idiopathic neuropathy, unspecifie d 05/14/2021 04/15/2023 Hereditary essential tremor 05/14/202104/02 Male urinary stress incontinence 10/13/2020 SI joint arthritis 08/09/2020 Sciatica without lumbago 08/01/2020 Paraphimosis 07/08/2020 Coronary arteriosclerosis 06/17/2020 Dyslipidemia 06/17/2020 Malignant neoplasm of prostate 05/13/2020 Peripheral vascular disease 08/20/2015 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 Essential hypertension 07/28/2014 Lower back pain 07/28/2014 MG (myasthenia gravis) 07/28/2014 Resolved Problems Problem Noted Date Diagnosed Date Resolved Date Overweight (BMI 25.0-29.9) 02/25/2021 0 01/21/2025 Leg cramping 02/25/2021 01/21/2025 Encounters Date Type Department Care Team Description 01/16/2025 Refill [facility] [address] [place] [phone] Nithya Mahan MD Greer's esophagus without dysplasia; Essential (primary) hypertension 12/11/2024 Refill [facility] [address] [place] [address] Nithya Mahan MD Coronary arteriosclerosis; Essential hypertension; Greer's esophagus without dysplasia from Last 3 Months Immunizations Immunization Administration Dates Next Due Influenza, High-dose, Split Virus, Trivalent, Injectable, preservative free 02/29/2024,02/20/2019,02/17/2018,02/12 Influenza, high-dose, quadrivalent 02/04,03/03/2022,02/25/2021,02/21,02/20/2019,02/20/2019,02/17/2018 ,02/17/2018,02/12/2017,02/12/2017,08/2014 Influenza, seasonal, injectable 03/03/2016 Moderna COVID-19 Vaccine (Re d Cap) 12+ years 08/29/2020,08/28/2020,08/02/2020,07/31 Pneumococcal Conjugate PCV 13 02/21/2018 Pneumococcal Polysaccharide PPV23 03/03/2016 Tdap 03/03/2016 Social History Tobacco Use Types Packs/Day Years Used Date Smoking Tobacco: Former Cigarettes 1 17 1 963 - 1979 Passive Smoke Exposure: Past Smokeless Tobacco: Never Tobacco Cessation:Counseling Given: Yes Alcohol Use Standard Drinks/Week Comments Yes 0 [...] Never 04/09/2023 How often do you attend presybeterian or restorationist serv ices? Never 04/09/2023 Do you belong to any clubs o r organizations such as presybeterian groups, unions, fraternal or athletic groups, or [...] Recorded Patient Health Questionnaire-2 Score 0 02/29/2024 [facility] - Occupational Stress Questionnaire Answer Date Recorded [...] place to sleep or slept in a senior care (including now)? No 12/10/2023 Safety and Environment [...] Recorded In the past 12 months has [employer], gas, oil, or water company threatened to shut off services in your home? No 12/10/2023 Sex and Gender Information Value Date Recorded Sex Assigned at Not on file Legal Sex Male 8:49 PM EDT Gender Identity Not on file Sexual Orientation Not on file Last Filed Vital Signs Vital Sign Reading Time Taken Comments Blood Pressure 138/68 02/29/2024 8:54 AM EDT Pulse 63 02/29/2024 8:54 AM EDT Temperature 36.6 C (97.8 F) 02/29/2024 8:54 AM EDT Respiratory Rate 16 02/29/2024 8:54 AM EDT Oxygen Saturation 95% 02/29/2024 8:54 AM EDT Inhaled Oxygen Concentration - - Weight 82.2 kg (181 lb 4.8 oz) 02/29/2024 8:54 A M EDT Height 182.9 cm (6') 12/10/2023 9:18 AM EDT Body Mass Index 24.59 12/10/2023 9:18 AM EDT Plan of Treatment Health Maintenance Due Date Last Done Comments [facility]-/Child/Adol SDOH Screenings 1950 [facility]- SDOH Screenings 1967 [facility]-Adult SDOH Screenings 1967 [facility]-Zoster Vaccines (1 of 2) 1968 CT Colonography 1994 Colonoscopy 1994 FIT-DNA 1994 FIT 1994 FOBT 1994 Sigmoidoscopy 1994 [facility]-Colorectal Cancer Screening 1994 [facility]-Abdominal Aortic Aneurysm (AAA) Screening 2014 [facility]-Medicare Annual Wellness (AWV) 04/15/2024 04/15/2023 [facility]-RSV Vaccine: 60+ Years or (1 - 1-dose 75+ series) 2024 [id number] Vaccine (6 - season) 2025 04/23/2021, 08/29/2020, 08/28/2020, Additional history exists [facility]-Influenza Vaccine (#1) 01/01/202502/28, 02/04/2023, 03/03/2022, Additional history exists [facility]-Depression Screening 02/28/2025 02/29/2024 [facility]-DTaP,Tdap,and Td Vaccines (2 - Td or Tdap) 03/03/2026 03/03/2016 [facility]-Pneumococcal Vaccine: 50+ Years Completed 02/21/2018, 03/03/2016 [facility]-Hepatitis C Screening Completed 04/15/2023 HPV Vaccines Aged Out No longer eligi ble based on patient's age to complete this topic [facility]-HIB Vaccines Aged Out No longer e ligible based on patient's age to complete this topic [facility]-Hepatitis A Vaccines Aged Out No longer eligible based on patient's age to complete this topic [facility]-IPV Vaccines Aged Out No longer e ligible based on patient's age to complete this topic [facility]-Rotavirus Vaccines Aged Out No lo nger eligible based on patient's age to complete this topic Procedures Procedure Name Priority Date/Time Associated Diagnosis Comments HEPATITIS C ANTIBODY W/REFLEX TO HCV QUANT PCR Routine 04/15/2023 8:36 AM EST Routine general medical examination at health care facility from Last 3 Months or Most Recently Relevant to Health Maintenance Results * Hepatitis C Antibody w/Reflex to HCV Quant PCR (04/15/2023 8:36 AM EST) Hepatitis C Antibody Negative Negative 04/15/2023 2:28 PM EST [facility] Blood Venous blood specimen / Unknown Venipuncture / Unknown 04/15/2023 8:36 AM EST 04/15/2023 8:36 AM EST us Nithya Mahan MD LAB BLOOD ORDERABLES Final Res [facility] [address] [place] [address] from Last 3 Months or Most Recently Relevant to Health Maintenance Insurance MEDICARE [facility] Care Teams Voice Data Communications Engineer Relationship Specialty Start Date End Date Nithya Mahan MD [address] [place] [address] PCP - General 09/13/20
--- OUTSIDE RECORDS SUMMARY | 2025-02-02 12:08 | XMS_ITS | Encounter Summary ---
Author Organization [employer] ([place], [place], [place], [place]) Address [address] [place] [address] Care Team Providers Care Dairy Cattle Farm Worker Name Role Phone Nithya Mahan MD Primary Care Provider [phone] [phone] Encounter Details Date Type Department Care Team (Late st Contact Info) Description 06/17/2020 Transcribed Document [facility] [place] [facility] [place] [address] ProviderPrakash MD [address] [place] [address] Social History Tobacco Use Types Packs/Day Years Used Date Smoking Tobacco: Never Assessed Sex and Gender Information Value Date Recorded Sex Assigned at Not on file Legal Sex Male 2:15 PM CDT Gender Identity Not on file Sexual Orientation Not on file documented as of this encounter Miscellaneous Notes * Cerner Conversion Note - Prakash ProviderMD - 06/17/2020 9:26 AM DEPUTY CLERK OF SUPERIOR COURT Event Note Entered On: 06/17/2020 9:27 EST Performed On: 06/17/2020 9:26 EST by Genet Vasques RN Event Note Event Date/Time : 06/17/2020 10:15 EST Description of Event : inst per Oswaldo Reid to use Dr Amado standing orders Genet Vasques RN - 06/17/2020 9:26 EST Electronically signed by Stephanie [facility] Conversion Quality Control Technician Cerner at 08/20/2022 9:28 AM CDT documented in this encounter Plan of Treatment Not on file documented as of this encounter Visit Diagnoses Not on filedocumented in this encounter Care Teams Dairy Cattle Farm Worker Relationship Specialty Start Date End Date Nithya Mahan MD [address] [place] [address] PCP - General Family Medicine 02/02/23 documented as of this encounter
--- OUTSIDE RECORDS SUMMARY | 2025-02-02 12:08 | XMS_ITS | Encounter Summary ---
Author Organization [employer] ([place], [place], [place], [place]) Address [address] [place] [address] Care Team Providers Care Boat Wrapper Name Role Phone Nithya Mahan MD Primary Care Provider [phone] [phone] Encounter Details Date Type Department Care Team (Late st Contact Info) Description 06/25/2020 Transcribed Document [facility] [place] [facility] [place] [address] ProviderPrakash MD [address] [place] [address] Social History Tobacco Use Types Packs/Day Years Used Date Smoking Tobacco: Never Assessed Sex and Gender Information Value Date Recorded Sex Assigned at Not on file Legal Sex Male 2:15 PM CDT Gender Identity Not on file Sexual Orientation Not on file documented as of this encounter Miscellaneous Notes * Cerner Conversion Note - Prakash Caldera MD - 06/25/2020 9:39 AM RN ORTHOPEDIC Pre Procedure Adult Entered On: 06/25/2020 9:39 EST Performed On: 06/25/2020 9:39 EST by ED CERVANTES RN Height and Weight, Clinical Dosing Height Source : Stated Height Entry Format : Trigg Height, Feet : 6 ft(Converted to: 183 cm, 72 Inch) Height, Inches : 0 Inch(Converted to: 0 ft 0 Inch, 0.00 cm) Clinical Height : 182.88 cm Weight Source : Standing scale Weight Entry Format : Trigg Clinical Dosing Weight : 88.64 kg Weight, Pounds : 195 lb Body Surface Area (BSA) : 2.11 m2 Body Mass Index : 26.5 kg/m2 ([place]) [place] Body Weight : 77 kg ED CERVANTES RN - 06/25/2020 9:39 EST Infectious Disease History Has the patient [...] : Measles, Mumps Tuberculosis Symptoms : None ED CERVANTES RN - 06/25/2020 9:39 EST COVID19 PreProcedure Screening Is this an Emergent or Add on Procedure? : No Date PreProcedure COVID-19 test known? : Yes Date of PreProcedure COVID-19 : 06/21/2020 EST Has patient been isolated since the test : Yes Exposed to COVID19 symptoms since test? : No ED CERVANTES RN - 06/25/2020 9:39 EST Anesthesia/Transfusion History Family History of Anesthesia Reaction : Unknown Transfusion History : Prior anesthesia without reaction Family History of Anesthesia Reaction : None ED CERVANTES RN - 06/25/2020 9:39 EST [place] Suicide Severity Rating Scale (C-SSRS) CSSRS Past Month Wish to be : No CSSRS Past Month Suicidal Thoughts : No CSSRS Lifetime Suicide Behavior : No Suicide Severity Rating Score : 0 Suicide Severity Rating : No Additional Care Required at this time ED CERVANTES RN - 06/25/2020 9:39 EST General Info Support Person/Pt Rep Name : Amanda Doss Family/Rep/Phys Notified of Admit : No Emergency Contact #1 : Amanda Davenport Emergency Contact #1 Emergency Contact #1 Relationship : spouse Emergency Contact #2 : . Emergency Contact #2 Phone Number : . Emergency Contact #2 Relationship : . Primary Language : Kuwaiti Preferred Communication Mode : Verbal Communication Barrier : None Academic Affairs Dean Needed : No ED CERVANTES RN - 06/25/2020 9:39 EST Sleep Apnea Risk Assmt Hx of [...] Sleep Apnea Risk Level Score : 4 ED CERVANTES RN - 06/25/2020 9:39 EST Fall Risk Scales Barriers to Learning : None evident Highest Level of Education : None Learning Style Preferences Family : None Learning Style Preferences Patient : None ED CERVANTES RN - 06/25/2020 9:39 EST Electronically signed by Stephanie, [facility] Conversion Soda Tester Cerner at 08/20/2022 9:15 AM CDT documented in this encounter Plan of Treatment Not on file documented as of this encounter Visit Diagnoses Not on filedocumented in this encounter Care Teams Boat Wrapper Relationship Specialty Start Date End Date Nithya Mahan MD [address] [place] [address] PCP - General Family Medicine 02/02/23 documented as of this encounter
--- OUTSIDE RECORDS SUMMARY | 2025-02-02 12:08 | XMS_ITS | Encounter Summary ---
Author Organization [employer] ([place], [place], [place], [place]) Address [address] [place] [address] Care Team Providers Care Audio Production Manager Name Role Phone Nithya Mahan MD Primary Care Provider [phone] Encounter Details Date Type Department Care Team (Late st Contact Info) Description 06/26/2020 Transcribed Document [facility] [place] [facility] [place] [address] ProviderPrakash MD [address] [place] [address] Social History Tobacco Use Types Packs/Day Years Used Date Smoking Tobacco: Never Assessed Sex and Gender Information Value Date Recorded Sex Assigned at Not on file Legal Sex Male 2:15 PM CDT Gender Identity Not on file Sexual Orientation Not on file documented as of this encounter Miscellaneous Notes * Cerner Conversion Note - Prakash ProviderMD - 06/26/2020 5:00 AM METAL DOOR ASSEMBLER Chart Check - Review Order Profile Entered On: 06/26/2020 3:35 EST Performed On: 06/26/2020 5:00 EST by Angelica Sunshine Rn Chart Check Powerplans Initiated/Discontinued as Appropriate : Yes All Active Orders Reviewed : Yes Angelica Sunshine Rn - 06/26/2020 3:35 EST documented in this encounter Plan of Treatment Not on file documented as of this encounter Visit Diagnoses Not on filedocumented in this encounter Care Teams Audio Production Manager Relationship Specialty Start Date End Date Nithya Mahan MD [address] [facility] [place] [address] PCP - General Family Medicine 02/02/23 documented as of this encounter
--- OUTSIDE RECORDS SUMMARY | 2025-02-02 12:08 | XMS_ITS | Encounter Summary ---
Author Organization [employer] ([place], [place], [place], [place]) Address [address] [place] [address] Care Team Providers Care Business Librarian Name Role Phone Nithya Mahan MD Primary Care Provider [phone] [phone] Encounter Details Date Type Department Care Team (Late st Contact Info) Description 06/25/2020 Transcribed Document [facility] [place] [facility] [place] [address] ProviderPrakash MD [address] [place], [place] [id number] Social History Tobacco Use Types Packs/Day Years Used Date Smoking Tobacco: Never Assessed Sex and Gender Information Value Date Recorded Sex Assigned at Not on file Legal Sex Male 2:15 PM CDT Gender Identity Not on file Sexual Orientation Not on file documented as of this encounter Miscellaneous Notes * Cerner Conversion Note - Prakash Caldera MD - 06/25/2020 2:32 PM SPECIAL EDUCATION AIDE Patient: NEFTALI DAVENPORT Age: 70 Years Sex: Male : 1950 *Operation Robotic assisted laparoscopic radical prostatectomy with bilateral obturator lymphadenectomy Sigmoidoscopy with Dr. Schwartz Indication for Surgery This is a pleasant 70-year-old gentleman who has localized prostate cancer. He is elected for surgical therapy after understanding the treatment options for localized prostate cancer. He wishes to proceed with robotic assisted laparoscopic radical prostatectomy gives us full consent understanding the risk benefits therein. 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 He sterilely prepped and draped in normal fashion after being placed in dorsolithotomy position padding all pressure points once anesthesia been induced. He was sterilely prepped and draped in normal fashion his Veress needle technique was used at the umbilicus to create pneumoperitoneum. The remainder of the robotic and administrative office assistant trochars were placed without difficulty. The robot was docked after he was placed in steep Trendelenburg position. The sigmoid colon was densely adhered to the posterior bladder and anterior abdominal wall and then we took this down using blunt and sharp dissection. We never entered the colon however there was an area on the posterior bladder near the dome that looked like a potential colovesical fistula. General surgery came into the room and investigated this. Our decision was to perform sigmoidoscopy/proctoscopy at the end of the case to look for leak. We did not see any gross injury. At this point we dissected the bladder posteriorly entering the space of Retzius. Endopelvic fascia was opened bilaterally and puboprostatic ligaments taken down. Ligature of 0 Vicryl suture in a hehckw-je-uxrte fashion was placed around the dorsal venous complex. Anterior bladder neck was identified and staying clear the base of the prostate we open the anterior bladder. Posterior bladder neck was then divided taking care not to injure the ureteral orifices. Seminal vesicles and vas deferens were dissected out in their entirety with minimal thermal energy. We dissected easily in the space posterior to the prostate anterior the rectum up to the level apex of the prostate without encountering any inflammation. Prostatic pedicles were then isolated and taken down using a vessel sealer device. We teased off the neurovascular bundles away from the posterior lateral aspects of the prostate using a thermic technique. This partial nerve sparing approach was enhanced using amniotic tissue. Anterior dissection was then performed by dividing the dorsal venous complex. Apical dissection performed leaving a nice stump of urethra for anastomosis. After division of the urethra the specimen was placed in the specimen sac. Bilateral obturator lymph node dissection was then carried out in a vessel sealer device for hemostasis. Posterior tennis racquet tailoring of the bladder neck was then performed using a 2-0 Vicryl suture. Running 2-0 Monocryl vesicourethral anastomosis was performed which was watertight. At this point general surgery came out and perform sigmoidoscopy. See their note for details about the interior of the sigmoid colon. We filled the pelvis with irrigation fluid looking for bubbling or leaks. No bubbling or leaks were seen. We did manipulate the bladder and colon during this process. At this point a drain was brought in through the most lateral right trocar site and placed in the pelvis. Robot is undocked and under laparoscopic guidance we removed all of our trochars. We enlarged the trocar fascial defect at the umbilicus and delivered our specimen within the specimen sac. This fascial defect was closed using a 0 PDS suture. All incisions were irrigated. Subcutaneous tissues brought together using 3-0 Vicryl. Skin was brought together using Dermabond. HAIR drain and Holland catheter were secured in place. Anesthesia was reversed. Patient was taken the recovery room stable condition. *Estimated Blood Loss Less than 500 cc *Findings No sign of extraprostatic disease or colon injury *Specimen(s) Prostate, seminal vesicles, bilateral obturator lymph nodes Date of Service Date/Time of Service SN - Proc - Start Time: 06/25/20 12:36:00 (06/25/20 13:48:33) documented in this encounter Plan of Treatment Not on file documented as of this encounter Visit Diagnoses Not on filedocumented in this encounter Care Teams Business Librarian Relationship Specialty Start Date End Date Nithya Mahan MD [address] [place] [address] PCP - General Family Medicine 02/02/23 documented as of this encounter
--- OUTSIDE RECORDS SUMMARY | 2025-02-02 12:08 | XMS_ITS | Encounter Summary ---
Author Organization [employer] ([place], [place], [place], [place]) Address [address] [place] [address] Care Team Providers Care Health Professional Name Role Phone Nithya Mahan MD Primary Care Provider [phone] [phone] Encounter Details Date Type Department Care Team (Late st Contact Info) Description 06/26/2020 Transcribed Document [facility] [place] [facility] [place] [address] ProviderPrakash MD [address] [place], [place] [id number] Social History Tobacco Use Types Packs/Day Years Used Date Smoking Tobacco: Never Assessed Sex and Gender Information Value Date Recorded Sex Assigned at Not on file Legal Sex Male 2:15 PM CDT Gender Identity Not on file Sexual Orientation Not on file documented as of this encounter Miscellaneous Notes * Cerner Conversion Note - Prakash ProviderMD - 06/26/2020 4:00 PM MECHANICAL MANUFACTURING ENGINEER Nursing Discharge Summary Entered On: 06/26/2020 16:01 EST Performed On: 06/26/2020 16:00 EST by Mely Guerrero dye tub tender Documentation Discharge Date/Time : 06/26/2020 15:51 EST Patient Disposition, General : Discharge Discharge To : Home with ambulatory/outpatient follow-up Mely Guerrero RN - 06/26/2020 16:00 EST Electronically signed by Stephanie [facility] Conversion Manager Financial Reporting Cerner at 08/20/2022 9:24 AM CDT documented in this encounter Plan of Treatment Not on file documented as of this encounter Visit Diagnoses Not on filedocumented in this encounter Care Teams Health Professional Relationship Specialty Start Date End Date Nithya Mahan MD [address] [place] [address] PCP - General Family Medicine 02/02/23 documented as of this encounter
--- OUTSIDE RECORDS SUMMARY | 2025-02-02 12:08 | XMS_ITS | Encounter Summary ---
Author Organization [employer] ([place], [place], [place], [place]) Address [address] [place] [address] Care Team Providers Care It Help Desk Associate Name Role Phone Nithya Mahan MD Primary Care Provider [phone] Encounter Details Date Type Department Care Team (Late st Contact Info) Description 06/17/2020 Transcribed Document [facility] [place] [facility] [place] [address] ProviderPrakash MD [address] [place] [id number] Social History Tobacco Use Types Packs/Day Years Used Date Smoking Tobacco: Never Assessed Sex and Gender Information Value Date Recorded Sex Assigned at Not on file Legal Sex Male 2:15 PM CDT Gender Identity Not on file Sexual Orientation Not on file documented as of this encounter Miscellaneous Notes * Cerner Conversion Note - Prakash Caldera MD - 06/17/2020 9:39 AM WEAVING PROFESSOR Patient: NEFTALI DAVENPORT Age: 70 Years Sex: Male : 1950 Chief Complaint Prostate Cancer Primary Care Provider NO, FAMILY (REF) History of Present Illness This patient is a pleasant 70 yo WM who presents with Prostate Cancer. The patient had been followed by his PCP for an elevated PSA for many years but it has recently increased. Because of this, he was referred to Dr Bagley where a prostate biopsy was performed. This revealed an Adenocarcinoma of the Prostate, Chandler score of 8. The patient was offered a Robotic Prostatectomy with Nodes and has agreed to the procedure. Pt denies h/o DVT/PE. No trouble with anesthesia in the past. No COPD/GABINO/Asthma. Review of Systems Constitutional: Neg for fevers or chills. Eyes: Neg for blurry vision or change in vision. ENT: Neg for sore throat, ear pain, or dizziness. Cardiac: Neg for chest pain or dyspnea on exertion. Respiratory: Neg for shortness of breath. Gastrointestinal: Neg for nausea, vomiting, diarrhea, or constipation. Musculoskeletal: Neg for LE pain or swelling. Genitourinary: Pos for Prostate Cancer. Neurologic: Neg for headaches or seizures. Psychiatric: Neg for anxiety and depression. Integumentary: Neg for rash. Vital Signs Oxygen Settings (Last) Oxygen Therapy Mode: Room air (06/17/20 09:47:00) Physical Exam Constitutional: This is a pleasant 70 yo WM in no acute distress. HEENT: Normocephalic, atraumatic. PEERLA. Extraocular muscles intact. Conjunctiva pink without exudate. Oropharynx pink and moist. Neck supple. No JVD. Cardiac: SI, S2. RRR. No M/R/G. Respiratory: Lungs CTA bilaterally. No wheezes, rales, or rhonchi. Abdomen: Soft, nontender, nondistended. Active bowel sounds. No visible masses. Musculoskeletal: Bilateral LE without clubbing, cyanosis or edema. Integumentary: Skin is pink, warm and dry. No rashes. Neurologic: CN II-XII grossly intact. Psychiatric: Judgment and affect appropriate. Assessment/Plan 1. Preoperative Evaluation- Pt underwent preoperative laboratory workup and diagnostic studies. 2. Prostate Cancer- Proceed with surgery as scheduled with Dr Bautista on 06/25/2020. Continue Flomax. 3. Hypertension- Continue Toprol, Lisinopril and HCTZ. 4. GERD- Continue Famotidine and Omeprazole. 5. Myasthenia Gravis- Continue Pyridostigmine. 6. CAD- Pt received cardiac clearance from Tonie Tripathi. This patient had an abnormal stress test. I spoke with Tonie Tripathi personally and she and Dr Ceja felt that this patient should proceed with surgery but needs a heart cath after the procedure. A follow-up appt has been scheduled to ensure that this takes place. Problem List/Past Medical History Ongoing Arthritis barretts esophagus CAD enlarged prostate GERD Hx of myasthenia gravis hyperlipidemia hypertension Procedure/Surgical History REPLACEMENT OF LEFT LENS WITH SYNTH SUB, PERC APPROACH (09/03/2015), bilateral groin peripheral artery bypass, duodenal surgery, heart stents x2 with cath, left eye surgery. Home Medications (10) Active Aspirin Low Dose 81 mg oral delayed release tablet 81 mg = 1 Tab, Oral, Daily famotidine 40 mg, Oral, Daily fenofibrate 160 mg oral tablet 160 mg = 1 Tab, Oral, Daily Flomax 0.4 mg oral capsule 0.4 mg = 1 Cap, Oral, Daily hydrochlorothiazide 25 mg, Oral, Daily lisinopril 30 mg oral tablet 30 mg = 1 Tab, Oral, Daily Mag-Ox 400 oral tablet 400 mg = 1 Tab, Oral, Daily omeprazole 40 mg oral delayed release capsule 40 mg = 1 Cap, Oral, Daily pyridostigmine 60 mg oral tablet 60 mg = 1 Tab, Oral, TID Toprol-XL 100 mg oral tablet, extended release 100 mg = 1 Tab, Oral, Daily Allergies No Known Allergies No Known Medication Allergies Social History Alcohol Alcohol Use History No. Use in Last 12 Months: No. Nutrition/Health Regular Substance Abuse Drug Use Hx: No. Use in Last 12 Months: No. Tobacco stopped 35 yrs ago Smoking Status. Never Smokeless Tobacco Status. Used Tobacco, but Quit Yes. Last Used: kiah pprox. 35 years ago.. Family History Pt mother from a CVA in her 60s. Pt did not know his father. Diagnostic Results EKG- Sinus Claudio, 59 CXR- NAD Lab Results WBCs- 7.0 Hbg- 14.2 Hct- 41.8 Plts- 264 Glucose- 86 Na- 142 K- 4.4 BUN- 25 Cr- 1.1 GFR- >60 PT- 11.4 INR- 1.1 PTT- 24.8 Electronically signed by [facility] Conversion Cattle Inspector Cerner at 08/20/2022 9:03 AM CDT documented in this encounter Plan of Treatment Not on file documented as of this encounter Visit Diagnoses Not on filedocumented in this encounter Care Teams It Help Desk Associate Relationship Specialty Start Date End Date Nithya Mahan MD [address] [place] [address] PCP - General Family Medicine 02/02/23 documented as of this encounter
--- OUTSIDE RECORDS SUMMARY | 2025-02-02 12:08 | XMS_ITS | Encounter Summary ---
Author Organization [employer] ([place], [place], [place], [place]) Address [address] [place] [address] Care Team Providers Care Tennis Player Name Role Phone Nithya Mahan MD Primary Care Provider [phone] [phone] Encounter Details Date Type Department Care Team (Late st Contact Info) Description 06/26/2020 Transcribed Document [facility] [place] [address] ProviderPrakash MD [address] [place] [address] Social History Tobacco Use Types Packs/Day Years Used Date Smoking Tobacco: Never Assessed Sex and Gender Information Value Date Recorded Sex Assigned at Not on file Legal Sex Male 2:15 PM CDT Gender Identity Not on file Sexual Orientation Not on file documented as of this encounter Miscellaneous Notes * Cerner Conversion Note - Prakash Caldera MD - 06/26/2020 2:36 PM MICRO COMPUTER DATA PROCESSOR Stroke/Warfarin Instructions Entered On: 06/26/2020 14:36 EST Performed On: 06/26/2020 14:36 EST by Tiff Walker RN Stroke/Warfarin Instructions Stroke/TIA Discharge Ins : N/A Warfarin Discharge Ins : N/A Tiff Walker RN - 06/26/2020 14:36 EST Electronically signed by Stephanie [facility] Conversion Width Stripper Cerner at 08/20/2022 9:22 AM CDT documented in this encounter Plan of Treatment Not on file documented as of this encounter Visit Diagnoses Not on filedocumented in this encounter Care Teams Tennis Player Relationship Specialty Start Date End Date Nithya Mahan MD [address] [place] [address] PCP - General Family Medicine 02/02/23 documented as of this encounter
--- OUTSIDE RECORDS SUMMARY | 2025-02-02 12:08 | XMS_ITS | Encounter Summary ---
Author Organization [employer] ([place], [place], [place], [place]) Address [address] [place] [address] Care Team Providers Care Pattern Maker Programer Name Role Phone Nithya Mahan MD Primary Care Provider [phone] [phone] Encounter Details Date Type Department Care Team (Late st Contact Info) Description 06/25/2020 Transcribed Document [facility] [place] [address] ProviderPrakash MD [address] [place] [address] Social History Tobacco Use Types Packs/Day Years Used Date Smoking Tobacco: Never Assessed Sex and Gender Information Value Date Recorded Sex Assigned at Not on file Legal Sex Male 2:15 PM CDT Gender Identity Not on file Sexual Orientation Not on file documented as of this encounter Miscellaneous Notes * Cerner Conversion Note - Prakash Caldera MD - 06/25/2020 12:36 PM GEOPHYSICAL COMPUTER E Main OR PACU Summary Primary Physician: ANGELIA BURROUGHS JR, MD-URO Finalized Date/Time: 06/25/20 15:19:19 Pt. Name: NEFTALI DAVENPORT/Sex: 1950 Male Med Rec #: [id number] Physician: ANGELIA BURROUGHS JR, MD-URO Financial #: [id number] Pt. Type: O Room/Bed: Admit/Disch: 06/25/20 04:19:00 - Institution: [facility] Main OR PACU Case Times Entry 1 In PACU I 06/25/20 14:40:00 Ready for PACU 06/25/20 15:18:00 Discharge Discharge from PACU 06/25/20 15:18:00 I Last Modified By: UCHE Lee 06/25/20 15:18:44 [facility] Main OR PACU Case Times Audit 06/25/20 15:18:44 Block Cutter: DUSTY Modifier: DANIELLEEYLL <+> 1 Ready for PACU Discharge <+> 1 Discharge from PACU I Finalized By: UCHE Lee Document Signatures Signed By: UCHE Lee 06/25/20 15:19 documented in this encounter Plan of Treatment Not on file documented as of this encounter Visit Diagnoses Not on filedocumented in this encounter Care Teams Pattern Maker Programer Relationship Specialty Start Date End Date Nithya Mahan MD [address] [place] [address] PCP - General Family Medicine 02/02/23 documented as of this encounter
--- OUTSIDE RECORDS SUMMARY | 2025-02-02 12:08 | XMS_ITS | Encounter Summary ---
Author Organization [employer] ([place], [place], [place], [place]) Address [address] [place] [address] Care Team Providers Care Property Consultant Name Role Phone Nithya Mahan MD Primary Care Provider [phone] Encounter Details Date Type Department Care Team (Late st Contact Info) Description 06/26/2020 Transcribed Document [facility] [place] [place] [address] ProviderPrakash MD [address] [place], [place] [address] Social History Tobacco Use Types Packs/Day Years Used Date Smoking Tobacco: Never Assessed Sex and Gender Information Value Date Recorded Sex Assigned at Not on file Legal Sex Male 2:15 PM CDT Gender Identity Not on file Sexual Orientation Not on file documented as of this encounter Miscellaneous Notes * Cerner Conversion Note - Prakash Caldera MD - 06/26/2020 11:05 AM LOSS PREVENTION MANAGER Final Discharge Planning Entered On: 06/26/2020 11:06 EST Performed On: 06/26/2020 11:05 EST by Penelope Atwood Rn Final Discharge Planning Discharge Arrangements : Patient Post-Acute Information Patient Name: NEFTALI DAVENPORT Gender: Male : [birth year] Age: 70 Years No Post-Acute Placement(s) Listed No Post-Acute Service(s) Listed No [place] Referral(s) Listed Patient Offered Choice/Affiliations Explained : No Designation of Choice Signed : No Transportation Needs : Car Follow Up Appointment Scheduled : Yes Is Patient High/Moderate Readmission Risk? : No Patient/Family Notified of Plan : Yes Is Patient Ready for Discharge? : Yes Physician Notified Patient is Ready for Discharge? : Yes Discharge To Care Management : Home/Residential/Fdc or Self Care -01 Penelope Atwood Rn - 06/26/2020 11:05 EST Final Narrative Note Final Narrative Note : per MDR, patient will go home today via car with no CM needs. Penelope Atwood Rn - 06/26/2020 11:05 EST Electronically signed by [facility] Conversion Corporate Development Intern Cerner at 08/20/2022 9:03 AM CDT documented in this encounter Plan of Treatment Not on file documented as of this encounter Visit Diagnoses Not on filedocumented in this encounter Care Teams Property Consultant Relationship Specialty Start Date End Date Nithya Mahan MD [address] [place] [address] PCP - General Family Medicine 02/02/23 documented as of this encounter
--- OUTSIDE RECORDS SUMMARY | 2025-02-02 12:08 | XMS_ITS | Encounter Summary ---
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 Never 04/09/2023 Do you belong to any clubs o r organizations such as synagogue groups, unions, fraternal or athletic groups, or [...] Recorded Patient Health Questionnaire-2 Score 0 02/29/2024 [facility] - Occupational Stress [...] place to sleep or slept in a halfway (including now)? 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
--- OUTSIDE RECORDS SUMMARY | 2025-02-02 12:08 | XMS_ITS | Encounter Summary ---
Author Organization [employer] ([place], [place], [place], [place]) Address [address] [place] [address] Care Team Providers Care Armament Mechanic Name Role Phone Nithya Mahan MD Primary Care Provider [phone] Reason for Visit * Reason Comments Medication Refill Encounter Details Date Type Department Care Team (Late st Contact Info) Description 06/11/2024 Refill [facility] Neurology - [facility] [address] [facility] [address] [place] [address] Babak Crisostomo MD [address] [facility] [address] [place] [address] Myasthenia gravis (HCC) Social History Tobacco Use Types Packs/Day Years Used Date Smoking Tobacco: Former Cigarettes Smokeless Tobacco: Never Alcohol Use Standard Drinks/Week Comments Never 0 (1 standard drink = 0.6 oz pur e alcohol) Family and Community Support Answer Balbir e Recorded Help with Day to Day Activities Not on file 05/15/2023 Feeling Lonely or Isolated Not on file 05/15 Educational Attainment Answer Date Kris rded Speak language other than Ghanaian at home Not on file 05/15/2023 Want [...] as of this encounter Visit Diagnoses Diagnosis Myasthenia gravis (HCC) Myasthenia gravis without exacerbation documented in this encounter Care Teams Armament Mechanic Relationship Specialty Start Date End Date Nithya Mahan MD [address] [place] [id number] PCP - General Family Medicine 02/02/23 documented as of this encounter
--- OUTSIDE RECORDS SUMMARY | 2025-02-02 12:08 | XMS_ITS | Encounter Summary ---
Author Organization [employer] ([place], [place], [place], [place]) Address [address] [place] [address] Care Team Providers Care Ux Ui Designer Name Role Phone Nithya Mahan MD Primary Care Provider [phone] Encounter Details Date Type Department Care Team (Late st Contact Info) Description 06/25/2020 Transcribed Document [facility] [place] [facility] [place] [address] ProviderPrakash MD [address] [place], [place] [address] Social History Tobacco Use Types Packs/Day Years Used Date Smoking Tobacco: Never Assessed Sex and Gender Information Value Date Recorded Sex Assigned at Not on file Legal Sex Male 2:15 PM CDT Gender Identity Not on file Sexual Orientation Not on file documented as of this encounter Miscellaneous Notes * Cerner Conversion Note - Prakash Caldera MD - 06/25/2020 10:16 AM SPARK TESTER Peripheral Nerve Block Entered On: 06/25/2020 10:16 EST Performed On: 06/25/2020 10:16 EST by ED CERVANTES RN Peripheral Nerve Block Peripheral Nerve Block Start Date/Time : 06/25/2020 10:18 EST Peripheral Nerve Block End Date/Time : 06/25/2020 10:27 EST ED CERVANTES RN - 06/25/2020 10:43 EST Verbally Confirm Pt, Site, and Procedure : Yes Site Marked and Visible : Yes Site Preparation : Chlorhexidine (Hibiclens) Peripheral Nerve Block : Tap Block Laterality : Bilateral Peripheral Nerve Block Performed by : ALVA FELIPE DO-GAVIN Medication Delivery Method : Single Shot Peripheral Nerve Block Assisted by : ED CERVANTES, RN Ultra sound used during insertion : Yes Nerve Block Activity, Patient Tolerance : Good ED CERVANTES, RN - 06/25/2020 10:16 EST Electronically signed by [facility] Conversion Mechanical Engineering Draftsperson Cerner at 08/20/2022 9:23 AM CDT documented in this encounter Plan of Treatment Not on file documented as of this encounter Visit Diagnoses Not on filedocumented in this encounter Care Teams Ux Ui Designer Relationship Specialty Start Date End Date Nithya Mahan MD [address] [place] [address] PCP - General Family Medicine 02/02/23 documented as of this encounter
--- OUTSIDE RECORDS SUMMARY | 2025-02-02 12:08 | XMS_ITS | Encounter Summary ---
Author Organization [employer] ([place], [place], [place], [place]) Address [address] [place] [address] Care Team Providers Care Salad Chef Name Role Phone Nithya Mahan MD Primary Care Provider [phone] Encounter Details Date Type Department Care Team (Late st Contact Info) Description 06/26/2020 Transcribed Document [facility] Family Medicine [facility] [place] [address] ProviderPrakash MD [address] [place] [address] Social History Tobacco Use Types Packs/Day Years Used Date Smoking Tobacco: Never Assessed Sex and Gender Information Value Date Recorded Sex Assigned at Not on file Legal Sex Male 2:15 PM CDT Gender Identity Not on file Sexual Orientation Not on file documented as of this encounter Miscellaneous Notes * Cerner Conversion Note - Prakash Caldera MD - 06/26/2020 2:36 PM [employer] [place] [id number] NEFTALI DAVENPORT :1950 Visit Time:06/25/2020 Your Visit Summary Your Care Team Admitting Physician - ANGELIA BURROUGHS JR, MD-URO Attending Physician - ANGELIA BURROUGHS JR, MD-URO Primary Care Physician - KIRK DUTTON DR Referring Physician - ANGELIA BURROUGHS JR, MD-URO Your Diagnosis Malignant neoplasm of prostate, Malignant neoplasm of prostate These Are Your Goals to go home tomorrow. Discharge Vitals Temperature 36.4 ??C Heart Rate (Monitored) 65 Respiratory Rate 18 Blood Pressure 108/63 What to do next Instructions From Your Care Team Discharge Follow Up Instructions: PCP 1 week, Urology as istructed.Do not remove Holland catheter at discharge Activity: Per Urology discharge activity orders, Discharge Activity: Other (use Special Instructions) Diet: Discharge Diet: Heart healthy diet Follow-Up Appointments Follow Up with ANGELIA BURROUGHS JR, MD-URO When 07/08/2020 11:30 AM EST Comments [facility] at [facility] at 10:00MUST GO TO [facility] FIRST OR THEY WILL NOT SEE YOU IN THE OFFICE. Where: [address] [place] [address] [address] [place] [address]- Medications What How Much When Instructions Next Dose aspirin (aspirin 81 mg oral delayed release tablet) 1 Tablet(s) Oral Every Day tomorrow acetaminophen-hydrocodone (Alexander 7.5 mg-325 mg oral tablet) 1 Tablet(s) Oral Every 4 Hours as needed for as needed for pain Pickup at [facility] as needed docusate (Colace 100 mg oral capsule) 1 Capsule(s) Oral Two Times A Day Pickup at [facility] tonight famotidine 40 Milligram(s) Oral Every Day tomorrow fenofibrate (fenofibrate 160 mg oral tablet) 1 Tablet(s) Oral Every Day tomorrow hydrochlorothiazide 25 Milligram(s) Oral Every Day tomorrow lisinopril (lisinopril 30 mg oral tablet) 1 Tablet(s) Oral Every Day tomorrow magnesium oxide (Mag-Ox 400 oral tablet) 1 Tablet(s) Oral Every Day tomorrow metoprolol (Toprol-XL 100 mg oral tablet, extended release) 1 Tablet(s) Oral Every Day tomorrow nitrofurantoin (Macrobid 100 mg oral capsule) 1 Capsule(s) Oral Two Times A Day Duration: 14 Day(s) Pickup at [facility] tonight omeprazole (omeprazole 40 mg oral delayed release capsule) 1 Capsule(s) Oral Every Day tomorrow polyethylene glycol 3350 (MiraLax oral powder for reconstitution) 17 Gram(s) Oral Every Day Pickup at [facility] tomorrow pyridostigmine (pyridostigmine 60 mg oral tablet) 1 Tablet(s) Oral Three Times A Day [facility] Pharmacy Information [facility]: [address] [place] [address] [phone] Take your medications faithfully. Do NOT skip medication. Do NOT stop taking medications without the direction of a physician. Carry a list of your medications with you at all times, and take this medication list with you to your first follow up visit. Report any side effects. Avoid herbal remedies unless discussed with your physician. As part of your treatment plan, your physician may have prescribed a limited course of a controlled substance. This medication may be given to help people with moderate or severe pain or for other medical conditions, but there are risks involved with treatment. Common side effects may include nausea, constipation, drowsiness, sweating, itching, dry mouth, and rash. More serious side effects may include cognitive and motor impairment, like problems with thinking, concentrating, alertness, and movement (e.g. slowed reflexes), and driving and operating heavy machinery can be dangerous. It is important for you to talk to your physician if you have these side effects or questions. These controlled substances can produce physical dependence and be habit-forming if taken for an extended period of time, which means that the body has gotten used to them and may experience withdrawal symptoms if they are abruptly stopped. Withdrawal symptoms can include runny nose, sweating, goose bumps, diarrhea, abdominal cramping, rapid heartbeat, difficulty sleeping, and nervousness. Please dispose of unused and medications per your retail pharmacy guidance. Allergies No Known Allergies No Known Medication Allergies Immunizations This Visit No Immunizations Found Education Materials Indwelling Urinary Catheter Care, Adult An indwelling urinary catheter is a thin, flexible, germ-free (sterile) tube that is placed into the bladder to help drain urine out of the body. The catheter is inserted into the part of the body that drains urine from the bladder (urethra). Urine drains from the catheter into a drainage bag outside of the body. Taking good care of your catheter will keep it working properly and help to prevent problems from developing. What are the risks? Bacteria may get into your bladder and cause a urinary tract infection. ??? Urine flow can become blocked. This can happen if the catheter is not working correctly, or if you have sediment or a blood clot in your bladder or the catheter. ??? Tissue near the catheter may become irritated and bleed. How to wear your catheter and your drainage bag Supplies needed ??? Adhesive tape or a leg strap. ??? Alcohol wipe or soap and water (if you use tape). ??? A clean towel (if you use tape). ??? Overnight drainage bag. ??? Smaller drainage bag (leg bag). Wearing your catheter and bag Use adhesive tape or a leg strap to attach your catheter to your leg. ??? Make sure the catheter is not pulled tight. ??? If a leg strap gets wet, replace it with a dry one. ??? If you use adhesive tape: 1. Use an alcohol wipe or soap and water to wash off any stickiness on your skin where you had tape before. 2. Use a clean towel to pat-dry the area. 3. Apply the new tape. You should have received a large overnight drainage bag and a smaller leg bag that fits underneath clothing. ??? You may wear the overnight bag at any time, but you should not wear the leg bag at night. ??? Always wear the leg bag below your knee. ??? Make sure the overnight drainage bag is always lower than the level of your bladder, but do not let it touch the floor. Before you go to sleep, hang the bag inside a wastebasket that is covered by a clean plastic bag. How to care for your skin around the catheter Supplies needed ??? A clean washcloth. ??? Water and mild soap. ??? A clean towel. Caring for your skin and catheter ??? Every day, use a clean washcloth and soapy water to clean the skin around your catheter. 1. Wash your hands with soap and water. 2. Wet a washcloth in warm water and mild soap. 3. Clean the skin around your urethra. ? If you are female: ? Use one hand to gently spread the folds of skin around your vagina (labia). ? With the washcloth in your other hand, wipe the inner side of your labia on each side. Do this in a crtft-qu-hacn direction. ? If you are male: ? Use one hand to pull back any skin that covers the end of your penis (foreskin). ? With the washcloth in your other hand, wipe your penis in small circles. Start wiping at the tip of your penis, then move outward from the catheter. ? Move the foreskin back in place, if this applies. 4. With your free hand, hold the catheter close to where it enters your body. Keep holding the catheter during cleaning so it does not get pulled out. 5. Use your other hand to clean the catheter with the washcloth. ? Only wipe downward on the catheter. ? Do not wipe upward toward your body, because that may push bacteria into your urethra and cause infection. 6. Use a clean towel to pat-dry the catheter and the skin around it. Make sure to wipe off all soap. 7. Wash your hands with soap and water. ??? Shower every day. Do not take baths. ??? Do not use cream, ointment, or lotion on the area where the catheter enters your body, unless your health care provider tells you to do that. ??? Do not use powders, sprays, or lotions on your genital area. ??? Check your skin around the catheter every day for signs of infection. Check for: ? Redness, swelling, or pain. ? Fluid or blood. ? Warmth. ? Pus or a bad smell. How to empty the drainage bag Supplies needed ??? Rubbing alcohol. ??? Gauze pad or cotton ball. ??? Adhesive tape or a leg strap. Emptying the bag Empty your drainage bag (your overnight drainage bag or your leg bag) when it is ? full, or at least 2???3 times a day. Clean the drainage bag according to the furniture stainer's instructions or as told by your health care provider. 1. Wash your hands with soap and water. 2. Detach the drainage bag from your leg. 3. Hold the drainage bag over the toilet or a clean container. Make sure the drainage bag is lower than your hips and bladder. This stops urine from going back into the tubing and into your bladder. 4. Open the pour spout at the bottom of the bag. 5. Empty the urine into the toilet or container. Do not let the pour spout touch any surface. This precaution is important to prevent bacteria from getting in the bag and causing infection. 6. Apply rubbing alcohol to a gauze pad or cotton ball. 7. Use the gauze pad or cotton ball to clean the pour spout. 8. Close the pour spout. 9. Attach the bag to your leg with adhesive tape or a leg strap. 10. Wash your hands with soap and water. How to change the drainage bag Supplies needed: ??? Alcohol wipes. ??? A clean drainage bag. ??? Adhesive tape or a leg strap. Changing the bag Replace your drainage bag with a clean bag if it leaks, starts to smell bad, or looks dirty. 1. Wash your hands with soap and water. 2. Detach the dirty drainage bag from your leg. 3. Pinch the catheter with your fingers so that urine does not spill out. 4. Disconnect the catheter tube from the drainage tube at the connection valve. Do not let the tubes touch any surface. 5. Clean the end of the catheter tube with an alcohol wipe. Use a different alcohol wipe to clean the end of the drainage tube. 6. Connect the catheter tube to the drainage tube of the clean bag. 7. Attach the clean bag to your leg with adhesive tape or a leg strap. Avoid attaching the new bag too tightly. 8. Wash your hands with soap and water. General instructions ??? Never pull on your catheter or try to remove it. Pulling can damage your internal tissues. ??? Always wash your hands before and after you handle your catheter or drainage bag. Use a mild, fragrance-free soap. If soap and water are not available, use hand housing management representative. ??? Always make sure there are no twists or bends (kinks) in the catheter tube. ??? Always make sure there are no leaks in the catheter or drainage bag. ??? Drink enough fluid to keep your urine pale yellow. ??? Do not take baths, swim, or use a hot tub. ??? If you are female, wipe from front to back after having a bowel movement. Contact a health care provider if: ??? Your urine is cloudy. ??? Your urine smells unusually bad. ??? Your catheter gets clogged. ??? Your catheter starts to leak. ??? Your bladder feels full. Get help right away if: ??? You have redness, swelling, or pain where the catheter enters your body. ??? You have fluid, blood, pus, or a bad smell coming from the area where the catheter enters your body. ??? The area where the catheter enters your body feels warm to the touch. ??? You have a fever. ??? You have pain in your abdomen, legs, lower back, or bladder. ??? You see blood in the catheter. ??? Your urine is pink or red. ??? You have nausea, vomiting, or chills. ??? Your urine is not draining into the bag. ??? Your catheter gets pulled out. Summary ??? An indwelling urinary catheter is a thin, flexible, germ-free (sterile) tube that is placed into the bladder to help drain urine out of the body. ??? The catheter is inserted into the part of the body that drains urine from the bladder (urethra). ??? Take good care of your catheter to keep it working properly and help prevent problems from developing. ??? Always wash your hands before and after you handle your catheter or drainage bag. ??? Never pull on your catheter or try to remove it. This information is not intended to replace advice given to you by your health care provider. Make sure you discuss any questions you have with your health care provider. Document Released: 04/19/2006 Document Revised: 08/11/2019 Document Reviewed: 12/03/2017 [employer] Patient Education ?? 2020 [employer] Radical Prostatectomy, Care After This sheet gives you information about how to care for yourself after your procedure. Your health care provider may also give you more specific instructions. If you have problems or questions, contact your health care provider. What can I expect after the procedure? After the procedure, it is common to have: ??? Mild pain in your lower abdomen. ??? Blood and small clots in your urine for up to 3 weeks. ??? A need to urinate more frequently than usual (bladder spasms). This may last for up to 2 weeks. After your catheter is removed, it is common to have: ??? A burning sensation when you urinate. This may last for up to 2 weeks after your catheter is removed. ??? Difficulty controlling when you urinate (incontinence). You may leak urine occasionally. Follow these instructions at home: Medicines ??? Take gwpc-fjh-pvrflja and prescription medicines only as told by your health care provider. ??? Do not drive or operate heavy machinery while taking prescription pain medicine. ??? If you were prescribed an antibiotic medicine, take it as told by your health care provider. Do not stop taking the antibiotic even if you start to feel better. Incision care and drain care ??? Follow instructions from your health care provider about how to take care of your incision. Make sure you: ? Wash your hands with soap and water before you change your bandage (dressing). If soap and water are not available, use hand housing management representative. ? Change your dressing as told by your health care provider. ? Leave stitches (sutures), skin glue, or adhesive strips in place. These skin closures may need to stay in place for 2 weeks or longer. If adhesive strip edges start to loosen and curl up, you may trim the loose edges. Do not remove adhesive strips completely unless your health care provider tells you to do that. ??? Check your incision site and drain site every day for signs of infection. Check for: ? Redness, swelling, or pain. ? Fluid or blood. ? Warmth. ? Pus or a bad smell. ??? If you have a drain, follow instructions from your health care provider about how to care of it. Do not remove the drain tube or any dressings around the tube opening unless your health care provider approves. Catheter Care ??? Always wash your hands with soap and water before and after touching your penis, your catheter, and your urine collection bag. If soap and water are not available, use hand housing management representative. ??? Empty your collection bag every 3 hours during the day, or as often as told by your health care provider. ??? Clean the tip of your penis with soap and water twice a day, or as often as told by your health care provider. ??? Apply ointment to the tip of your penis only as told by your health care provider. ??? You will need to visit your health care provider to have your catheter removed. Activity ??? Return to your normal activities as told by your health care provider. Ask your health care provider what activities are safe for you. ??? Do not lift anything that is heavier than 10 lb (4.5 kg), or the limit that your health care provider tells you, until he or she says that this is safe. ??? Do not ride in a car for more than 1 hour at a time for 1 month after your procedure, or for as long as told by your health care provider. ??? Avoid sitting for a long time without moving. Get up and move around at least every few hours. You may start to exercise more as you start to feel better, or as told by your health care provider. Eating and drinking ??? Follow instructions from your health care provider about eating or drinking restrictions. ??? Do not drink alcohol. ??? Drink enough fluid to keep your urine clear or pale yellow. General instructions ??? Do not take baths, swim, or use a hot tub until your health care provider approves. ??? Do not engage in sexual activity until your health care provider says it is safe for you. ??? Do not strain to have a bowel movement. ??? Do not use any products that contain nicotine or tobacco, such as cigarettes and e-cigarettes. If you need help quitting, ask your health care provider. ??? Wear compression stockings as told by your health care provider. These stockings help to prevent blood clots and reduce swelling in your legs. ??? Keep all follow-up visits as told by your health care provider. This is important. Contact a health care provider if: ??? You have any of the following around your incision area, drain area, or catheter insertion site: ? Redness, swelling, or pain. ? Fluid or blood. ??? Your incision area, drain area, or catheter insertion site feels warm to the touch. ??? You have problems with your catheter or your drain. ??? You pass urine around your catheter instead of through your catheter. ??? You become constipated. Symptoms of constipation may include: ? Having fewer than three bowel movements in a week. ? Difficulty having a bowel movement. ? Stools that are dry, hard, or larger than normal. Get help right away if: ??? You have pus or a bad smell coming from your incision area, drain area, or catheter insertion site. ??? You have a fever. ??? You have pain that gets worse. ??? Your catheter falls out. ??? You are unable to urinate or to pass urine through your catheter. ??? You have bright red blood in your urine. ??? You have large blood clots in your urine. ??? You develop: ? Chest pains. ? Shortness of breath. ? Swelling or pain in your legs. Summary ??? After your procedure, it is common to have mild pain in your lower abdomen, blood and small clots in your urine, and a need to urinate more frequently. ??? Take hreg-xrm-zfmwpgy and prescription medicines only as told by your health care provider. ??? Follow your health care provider's instructions on how to take care of your incision and drain areas. ??? Do not take baths, swim, use a hot tub, or engage in sexual activity until your health care provider approves. ??? Get help right away if you get a fever, develop chest pain, have shortness of breath, or your catheter falls out. This information is not intended to replace advice given to you by your health care provider. Make sure you discuss any questions you have with your health care provider. Document Released: 01/11/2013 Document Revised: 12/26/2018 Document Reviewed: 03/09/2016 [employer] Interactive Patient Education ?? 2019 [employer] Radical Prostatectomy Radical prostatectomy is a procedure to remove the entire prostate gland and the seminal vesicles. This procedure is done to treat prostate cancer that has not spread to other parts of the body (metastasized). The goal of the procedure is to remove all cancer cells and prevent prostate cancer from metastasizing. During a radical prostatectomy, the lymph glands may also be removed from the pelvis and tested for cancer cells. Lymph glands are part of the body's disease-fighting system (immune system). The pelvic lymph glands are the first place that may be affected by prostate cancer metastasis. Tell a health care provider about: ??? Any allergies you have. ??? All medicines you are taking, including vitamins, herbs, eye drops, creams, and yamz-rvl-raegswz medicines. ??? Any problems you or family members have had with anesthetic medicines. ??? Any blood disorders you have. ??? Any surgeries you have had. ??? Any medical conditions you have. ??? Any prostate infections you have had. What are the risks? Generally, this is a safe procedure. However, problems may occur, including: ??? Infection. ??? Bleeding. ??? Allergic reactions to medicines. ??? Damage to other structures or organs, such as: ? The tubes that drain urine from the kidneys to the bladder (ureters). ? The bladder. ? The urethra. ? The large or small intestines. ? The rectum. ??? Inability to control when you urinate (incontinence). Usually, this is temporary. ??? Inability to get or sustain an erection that allows you to have sexual intercourse (erectile dysfunction). ??? Blockage (obstruction) of the large or small intestines. ??? Narrowing or scarring of the urethra (stricture), which may block the flow of urine. ??? Blood clots in the legs. ??? Formation of a sac (cyst) in the pelvis that is filled with fluid from the lymph glands (lymphocele). What happens before the procedure? Ask your health care provider about: ? Changing or stopping your regular medicines. This is especially important if you are taking diabetes medicines or blood thinners. ? Taking medicines such as aspirin and ibuprofen. These medicines can thin your blood. Do not take these medicines before your procedure if your health care provider instructs you not to. ??? Follow instructions from your health care provider about eating or drinking restrictions. ??? Ask your health care provider how your surgical site will be marked or identified. ??? You may be given antibiotic medicine to help prevent infection. ??? You may have an exam or testing, such as: ? MRI. ? CT scan. ? Bone scan. ??? You may have a blood sample taken. ??? Plan to have someone take you home after the procedure. What happens during the procedure? To reduce your risk of infection: ? Your health care team will wash or sanitize their hands. ? Your skin will be washed with soap. ? Hair will be removed from your surgical area. ??? An IV tube will be inserted into one of your veins. ??? You will be given one or more of the following: ? A medicine to help you relax (sedative). ? A medicine to make you fall asleep (general anesthetic). ? A medicine that is injected into your spine to numb the area below and slightly above the injection site (spinal anesthetic). ??? A thin, flexible tube (catheter) will be inserted through your urethra and into your bladder to drain your urine. ??? This procedure may be performed using one of the following techniques: ? Radical retropubic prostatectomy. During this type of procedure, an incision will be made in your abdomen, starting right below your belly button and ending at your pubic bone. ? Laparoscopic radical prostatectomy. This is a type of minimally invasive surgery. Instead of one large incision, 4???5 small incisions will be made in your abdomen. A thin, lighted tube with a tiny camera on the end (laparoscope) and other surgical instruments will be put through your incisions to perform the procedure. ? Robot-assisted laparoscopic prostatectomy. This is a type of laparoscopic procedure in which surgical instruments will be controlled with the help of a robotic arm. ? Radical perineal prostatectomy. During this type of procedure, an incision will be made in the skin between your anus and the base of your scrotum (perineum). If your lymph glands will be removed, a second incision will be made in your abdomen. ??? Your prostate and seminal vesicles will be removed. When this happens, your urethra will be cut and from your bladder. ??? Your pelvic lymph glands may be removed. ??? Your urethra will be reconnected to your bladder. This will be done so that your catheter stays in place inside of your urethra. ??? A small tube (drain) may be placed in your incision to help drain fluid from your surgical site. ??? Your incision will be closed with stitches (sutures), skin glue, or adhesive strips. Medicine may be applied to your incision. ??? A bandage (dressing) will be placed over your incision. The procedure may vary among health care providers and hospitals. What happens after the procedure? Your blood pressure, heart rate, breathing rate, and blood oxygen level will be monitored often until the medicines you were given have worn off. ??? You may continue to receive fluids and medicines through an IV tube. ??? You will have some pain. Pain medicines will be available to help you. ??? You will have a catheter draining urine from your bladder. ??? You may have fluid coming from a drain in your incision. ??? You may have to wear compression stockings. These stockings help to prevent blood clots and reduce swelling in your legs. ??? You will be encouraged to move around as much as possible. This information is not intended to replace advice given to you by your health care provider. Make sure you discuss any questions you have with your health care provider. Document Released: 07/28/2006 Document Revised: 09/24/2016 Document Reviewed: 03/09/2016 [employer] Interactive Patient Education ?? 2019 [employer] docusate (oral/rectal) (K linn moore) Colace, Diocto, Doc-Q-Lace, Docu, Doculase, Docusil, Docusoft S, DocuSol, Dulcolax Stool Softener, Enemeez Mini, Tom-Tin, Pedia-Lax Stool Softener, Anderson Stool Softener, Promolaxin, Silace, Surfak Stool Softener, Mohsen-Q-Lax What is the most important information I should know about docusate? You should not use docusate if you also use mineral oil, unless your doctor tells you to. What is docusate? Docusate is a stool softener that makes bowel movements softer and easier to pass. Docusate is used to relieve occasional constipation (irregularity). There are many brands and forms of docusate available. Not all brands are listed on this leaflet. Docusate may also be used for purposes not listed in this medication guide. What should I discuss with my healthcare provider before using docusate? You should not use docusate if you are allergic to it. Ask a doctor or pharmacist if this medicine is safe to use if you have: ?? stomach pain; ?? nausea; ?? vomiting; or ?? a sudden change in bowel habits that lasts over 2 weeks. Ask a doctor before using this medicine if you are or . Do not give this medicine to a child without medical advice. How should I use docusate? Use exactly as directed on the label, or as prescribed by your doctor. Drink plenty of liquids while you are using docusate. Measure liquid medicine carefully. Use the dosing syringe provided, or use a medicine dose-measuring device (not a kitchen spoon). Do not take the rectal enema by mouth. Rectal medicine is for use only in the rectum. Wash your hands before and after using the enema. To use the enema, lie on your left side with your left leg extended and your right leg slightly bent. Remove the cap from the applicator tip and gently insert the tip into your rectum. Slowly squeeze the bottle to empty the contents into the rectum. After using the enema, lie down on your left side for at least 30 minutes to allow the liquid to distribute throughout your intestines. Avoid using the bathroom, and hold in the enema at least 1 hour, or all night if possible. Read and carefully follow any Instructions for Use provided with your medicine. Ask your doctor or pharmacist if you do not understand these instructions. Docusate generally produces bowel movement in 12 to 72 hours. Call your doctor if your symptoms do not improve after 72 hours. You should not use docusate for longer than 1 week, unless your doctor tells you to. Store at room temperature away from moisture and heat. Do not freeze liquid medicine. What happens if I miss a dose? Since docusate is used when needed, you may not be on a dosing schedule. Skip any missed dose if it's almost time for your next dose. Do not use two doses at one time. What happens if I overdose? Seek emergency medical attention or call the Poison Help line at . What should I avoid while using docusate? Avoid using mineral oil, unless told to do so by a doctor. What are the possible side effects of docusate? Get emergency medical help if you have signs of an allergic reaction: hives; difficult breathing; swelling of your face, lips, tongue, or throat. Stop using docusate and call your doctor at once if you have: ?? rectal bleeding or irritation; or ?? no bowel movement after 72 hours. Less serious side effects may be more likely, and you may have none at all. This is not a complete list of side effects and others may occur. Call your doctor for medical advice about side effects. You may report side effects to FDA at 6-808-CAR-5183. What other drugs will affect docusate? Other drugs may affect docusate, including prescription and ghuh-hab-iqlijfb medicines, vitamins, and herbal products. Tell your doctor about all your current medicines and any medicine you start or stop using. Where can I get more information? Your pharmacist can provide more information about docusate. Remember, keep this and all other medicines out of the reach of children, never share your medicines with others, and use this medication only for the indication prescribed. Every effort has been made to ensure that the information provided by [employer]') is accurate, up-to-date, and complete, but no guarantee is made to that effect. Drug information contained herein may be time sensitive. [employer] information has been compiled for use by healthcare practitioners and consumers in the [place] and therefore [employer] does not warrant that uses outside of the [place] are appropriate, unless specifically indicated otherwise. [employer]'s drug information does not endorse drugs, diagnose patients or recommend therapy. [employer] drug information is an informational resource designed to assist licensed healthcare practitioners in caring for their patients and/or to serve consumers viewing this service as a supplement to, and not a substitute for, the expertise, skill, knowledge and judgment of healthcare practitioners. The absence of a warning for a given drug or drug combination in no way should be construed to indicate that the drug or drug combination is safe, effective or appropriate for any given patient. [employer] does not assume any responsibility for any aspect of healthcare administered with the aid of information [employer] provides. The information contained herein is not intended to cover all possible uses, directions, precautions, warnings, drug interactions, allergic reactions, or adverse effects. If you have questions about the drugs you are taking, check with your doctor, nurse or pharmacist. Copyright 0252-1495 [employer]. Version: 4.01. Revision Date: 11/07/2018. polyethylene glycol 3350 (wilfrido ee ETH il een GLYE kol) ClearLax, GaviLAX, Gialax, GlycoLax, MiraLax, [id number], SunMark ClearLax What is the most important information I should know about polyethylene glycol 3350? You should not use this medicine if you have a bowel obstruction or intestinal blockage. If you have any of these conditions, you could have dangerous or life-threatening side effects from polyethylene glycol 3350. Do not use polyethylene glycol 3350 more than once per day. Call your doctor if you are still constipated or irregular after using this medication for 7 days in a row. What is polyethylene glycol 3350? Polyethylene glycol 3350 is a laxative solution that increases the amount of water in the intestinal tract to stimulate bowel movements. Polyethylene glycol 3350 is used as a laxative to treat occasional constipation or irregular bowel movements. Polyethylene glycol 3350 may also be used for purposes not listed in this medication guide. What should I discuss with my healthcare provider before taking polyethylene glycol 3350? You should not use this medicine if you are allergic to polyethylene glycol, or if you have a bowel obstruction or intestinal blockage. If you have any of these conditions, you could have dangerous or life-threatening side effects from polyethylene glycol 3350. People with eating disorders (such as anorexia or bulimia) should not use this medication without the advice of a doctor. To make sure this medicine is safe for you, tell your doctor if you have: ?? nausea, vomiting, or severe stomach pain; ?? ulcerative colitis; ?? irritable bowel syndrome; ?? kidney disease; or ?? if you have had a sudden change in bowel habits that has lasted 2 weeks or longer. FDA category C. It is not known whether polyethylene glycol 3350 will harm an unborn baby. Tell your doctor if you are or plan to become while using this medication. It is not known whether polyethylene glycol 3350 passes into breast milk or if it could harm a nursing baby. Tell your doctor if you are breast-feeding a baby. How should I take polyethylene glycol 3350? Follow all directions on your prescription label. Do not use this medicine in larger or smaller amounts or for longer than recommended. To use the powder form of this medicine, measure your dose with the medicine cap on the bottle. This cap should contain dose mitchell on the inside of it. Pour the powder into 4 to 8 ounces of a cold or hot beverage such as water, juice, soda, coffee, or tea. Stir this mixture and drink it right away. Do not save for later use. Polyethylene glycol 3350 should produce a bowel movement within 1 to 3 days of using the medication. Polyethylene glycol 3350 normally causes loose or even watery stools. Do not use polyethylene glycol 3350 more than once per day. Call your doctor if you are still constipated or irregular after using this medication for 7 days in a row. Store at room temperature away from moisture and heat. What happens if I miss a dose? Take the missed dose as soon as you remember. Skip the missed dose if it is almost time for your next scheduled dose. Do not take extra medicine to make up the missed dose. What happens if I overdose? Seek emergency medical attention or call the Poison Help line at . What should I avoid while taking polyethylene glycol 3350? Follow your doctor's instructions about any restrictions on food, beverages, or activity. What are the possible side effects of polyethylene glycol 3350? Get emergency medical help if you have signs of an allergic reaction: hives; difficult breathing; swelling of your face, lips, tongue, or throat. Stop taking this medicine and call your doctor at once if you have: ?? severe or bloody diarrhea; ?? rectal bleeding; ?? blood in your stools; or ?? severe and worsening stomach pain. Common side effects may include: ?? bloating, gas, upset stomach; ?? dizziness; or ?? increased sweating. This is not a complete list of side effects and others may occur. Call your doctor for medical advice about side effects. You may report side effects to FDA at 1-362-ERD-3075. What other drugs will affect polyethylene glycol 3350? Other drugs may interact with polyethylene glycol 3350, including prescription and aqhn-ton-ebsybqc medicines, vitamins, and herbal products. Tell each of your health care providers about all medicines you use now and any medicine you start or stop using. Where can I get more information? Your pharmacist can provide more information about polyethylene glycol 3350. Remember, keep this and all other medicines out of the reach of children, never share your medicines with others, and use this medication only for the indication prescribed. Every effort has been made to ensure that the information provided by [employer] ('[employer] is accurate, up-to-date, and complete, but no guarantee is made to that effect. Drug information contained herein may be time sensitive. [employer] information has been compiled for use by healthcare practitioners and consumers in the [place] and therefore [employer] does not warrant that uses outside of the [place] are appropriate, unless specifically indicated otherwise. [employer] drug information does not endorse drugs, diagnose patients or recommend therapy. [employer] drug information is an informational resource designed to assist licensed healthcare practitioners in caring for their patients and/or to serve consumers viewing this service as a supplement to, and not a substitute for, the expertise, skill, knowledge and judgment of healthcare practitioners. The absence of a warning for a given drug or drug combination in no way should be construed to indicate that the drug or drug combination is safe, effective or appropriate for any given patient. [facility] does not assume any responsibility for any aspect of healthcare administered with the aid of information [facility] provides. The information contained herein is not intended to cover all possible uses, directions, precautions, warnings, drug interactions, allergic reactions, or adverse effects. If you have questions about the drugs you are taking, check with your doctor, nurse or pharmacist. Copyright 6030-2712 [facility]. Version: 2.04. Revision Date: 08/05/2016. nitrofurantoin (GUSTAVO troe fue RAN toin) Macrobid, Macrodantin What is the most important information I should know about nitrofurantoin? You should not take nitrofurantoin if you have severe kidney disease, urination problems, or a history of jaundice or liver problems caused by nitrofurantoin. Do not take nitrofurantoin during late (from 38 weeks through delivery). What is nitrofurantoin? Nitrofurantoin is an antibiotic that is used to treat urinary tract infections caused by bacteria. Nitrofurantoin may also be used for purposes not listed in this medication guide. What should I discuss with my healthcare provider before taking nitrofurantoin? You should not take nitrofurantoin if you are allergic to it, or if you have: ?? severe kidney disease; ?? urination problems (little or no urination); or ?? a history of jaundice or liver problems caused by taking nitrofurantoin. Do not take nitrofurantoin during late (from 38 weeks through delivery). Tell your doctor if you have ever had: ?? kidney disease; ?? anemia; ?? diabetes; ?? an electrolyte imbalance or vitamin B deficiency; ?? thhcjdd-5-chdiuqjho dehydrogenase (G6PD) deficiency; or ?? any type of debilitating disease. You should not breastfeed a baby younger than 1 month old while you are taking nitrofurantoin. Nitrofurantoin should not be given to a child younger than 1 month old. How should I take nitrofurantoin? Follow all directions on your prescription label and read all medication guides or instruction sheets. Use the medicine exactly as directed. Take nitrofurantoin with food, even if you take it at bedtime. Shake the oral suspension (liquid) before you measure a dose. Use the dosing syringe provided, or use a medicine dose-measuring device (not a kitchen spoon). You may need to keep taking nitrofurantoin for up to 7 days after lab tests show that the infection has cleared. Follow your doctor's instructions. Use this medicine for the full prescribed length of time, even if your symptoms quickly improve. Skipping doses can increase your risk of infection that is resistant to medication. Nitrofurantoin will not treat a viral infection such as the flu or a common cold. This medicine can affect the results of certain medical tests. Tell any doctor who treats you that you are using nitrofurantoin. If you use this medicine long-term, you may need frequent medical tests. Store at room temperature away from moisture, heat, and light. Do not freeze the liquid medicine, and keep the bottle tightly closed when not in use. Throw away any nitrofurantoin liquid that has not been used within 30 days. What happens if I miss a dose? Take the medicine as soon as you can, but skip the missed dose if it is almost time for your next dose. Do not take two doses at one time. What happens if I overdose? Seek emergency medical attention or call the Poison Help line at . Overdose can cause vomiting. What should I avoid while taking nitrofurantoin? Antibiotic medicines can cause diarrhea, which may be a sign of a new infection. If you have diarrhea that is watery or bloody, call your doctor before using anti-diarrhea medicine. Avoid taking an antacid that contains magnesium trisilicate, which could make it harder for your body to absorb nitrofurantoin. What are the possible side effects of nitrofurantoin? Get emergency medical help if you have signs of an allergic reaction (hives, difficult breathing, swelling in your face or throat) or a severe skin reaction (fever, sore throat, burning eyes, skin pain, red or purple skin rash with blistering and peeling). Call your doctor at once if you have: ?? severe stomach pain, diarrhea that is watery or bloody (even if it occurs months after your last dose); ?? vision problems; ?? fever, chills, cough, chest pain, trouble breathing; ?? numbness, tingling, or burning pain in your hands or feet; ?? severe pain behind your eyes; ?? pale skin, weakness; ?? joint pain or swelling with fever, swollen glands, and muscle aches; ?? pain, redness, or swelling in your lower jaw; ?? increased pressure inside the skull--severe headaches, ringing in your ears, dizziness, nausea, vision problems, pain behind your eyes; or ?? signs of liver or pancreas problems--upper stomach pain (that may spread to your back), nausea or vomiting, dark urine, yellowing of the skin or eyes. Side effects may be more likely in older adults. Common side effects may include: ?? headache, dizziness, drowsiness, weakness; ?? gas, indigestion, loss of appetite; ?? nausea, vomiting; ?? muscle or joint pain; ?? rash, itching; or ?? temporary hair loss. This is not a complete list of side effects and others may occur. Call your doctor for medical advice about side effects. You may report side effects to FDA at 4-743-UUG-5381. What other drugs will affect nitrofurantoin? Other drugs may affect nitrofurantoin, including prescription and eabt-dze-hprrxlh medicines, vitamins, and herbal products. Tell your doctor about all your current medicines and any medicine you start or stop using. Where can I get more information? Your pharmacist can provide more information about nitrofurantoin. Remember, keep this and all other medicines out of the reach of children, never share your medicines with others, and use this medication only for the indication prescribed. Every effort has been made to ensure that the information provided by [employer] ('[employer]') is accurate, up-to-date, and complete, but no guarantee is made to that effect. Drug information contained herein may be time sensitive. [employer] information has been compiled for use by healthcare practitioners and consumers in the [place] and therefore [employer] does not warrant that uses outside of the [place] are appropriate, unless specifically indicated otherwise. [employer] drug information does not endorse drugs, diagnose patients or recommend therapy. [employer] drug information is an informational resource designed to assist licensed healthcare practitioners in caring for their patients and/or to serve consumers viewing this service as a supplement to, and not a substitute for, the expertise, skill, knowledge and judgment of healthcare practitioners. The absence of a warning for a given drug or drug combination in no way should be construed to indicate that the drug or drug combination is safe, effective or appropriate for any given patient. [facility] does not assume any responsibility for any aspect of healthcare administered with the aid of information [facility] provides. The information contained herein is not intended to cover all possible uses, directions, precautions, warnings, drug interactions, allergic reactions, or adverse effects. If you have questions about the drugs you are taking, check with your doctor, nurse or pharmacist. Copyright 4838-9672 [facility]. Version: 9.02. Revision Date: 06/26/2019. acetaminophen and hydrocodone (a SEET a MIN oh fen and rachelle droe KOE done) Hycet, Lorcet, Alexander, Verdrocet, Vicodin, Xodol, Zamicet What is the most important information I should know about acetaminophen and hydrocodone? MISUSE OF OPIOID MEDICINE CAN CAUSE ADDICTION, OVERDOSE, OR . Keep the medication in a place where others cannot get to it. Taking opioid medicine during may cause life-threatening withdrawal symptoms in the . Fatal side effects can occur if you use opioid medicine with alcohol, or with other drugs that cause drowsiness or slow your breathing. Stop taking this medicine and call your doctor right away if you have skin redness or a rash that spreads and causes blistering and peeling. What is acetaminophen and hydrocodone? Acetaminophen and hydrocodone is a combination medicine used to relieve moderate to severe pain. Acetaminophen and hydrocodone contains an opioid medicine, and may be habit-forming. Acetaminophen and hydrocodone may also be used for purposes not listed in this medication guide. What should I discuss with my healthcare provider before taking acetaminophen and hydrocodone? You should not use this medicine if you are allergic to acetaminophen or hydrocodone, or if you have: ?? severe asthma or breathing problems; or ?? a blockage in your stomach or intestines. Tell your doctor if you have ever had: ?? breathing problems, sleep apnea; ?? liver disease; ?? a drug or alcohol addiction; ?? kidney disease; ?? a head injury or seizures; ?? urination problems; or ?? problems with your thyroid, pancreas, or gallbladder. If you use opioid medicine while you are , your baby could become dependent on the drug. This can cause life-threatening withdrawal symptoms in the baby after it is born. Babies born dependent on opioids may need medical treatment for several weeks. Ask a doctor before using opioid medicine if you are . Tell your doctor if you notice severe drowsiness or slow breathing in the nursing baby. How should I take acetaminophen and hydrocodone? Follow all directions on your prescription label. Never take this medicine in larger amounts, or for longer than prescribed. An overdose can damage your liver or cause . Tell your doctor if you feel an increased urge to use more of this medicine. Never share this medicine with another person, especially someone with a history of drug abuse or addiction. MISUSE CAN CAUSE ADDICTION, OVERDOSE, OR . Keep the medicine in a place where others cannot get to it. Selling or giving away this medicine is against the law. Measure liquid medicine carefully. Use the dosing syringe provided, or use a medicine dose-measuring device (not a kitchen spoon). If you need surgery or medical tests, tell the doctor ahead of time that you are using this medicine. You should not stop using this medicine suddenly. Follow your doctor's instructions about tapering your dose. Store at room temperature away from moisture and heat. Keep track of your medicine. You should be aware if anyone is using it improperly or without a prescription. Do not keep leftover opioid medication. Just one dose can cause in someone using this medicine accidentally or improperly. Ask your pharmacist where to locate a drug take-back disposal program. If there is no take-back program, flush the unused medicine down the toilet. What happens if I miss a dose? Since this medicine is used for pain, you are not likely to miss a dose. Skip any missed dose if it is almost time for your next dose. Do not use two doses at one time. What happens if I overdose? Seek emergency medical attention or call the Poison Help line at . An overdose of this medicine can be fatal, especially in a child or other person using the medicine without a prescription. Overdose symptoms may include nausea, vomiting, sweating, severe drowsiness, pinpoint pupils, slow breathing, or no breathing. Your doctor may recommend you get naloxone (a medicine to reverse an opioid overdose) and keep it with you at all times. A person caring for you can give the naloxone if you stop breathing or don't wake up. Your caregiver must still get emergency medical help and may need to perform CPR (cardiopulmonary resuscitation) on you while waiting for help to arrive. Anyone can buy naloxone from a pharmacy or local health department. Make sure any person caring for you knows where you keep naloxone and how to use it. What should I avoid while taking acetaminophen and hydrocodone? Avoid driving or operating machinery until you know how this medicine will affect you. Dizziness or drowsiness can cause falls, accidents, or severe injuries. Do not drink alcohol. Dangerous side effects or could occur. Ask a doctor or pharmacist before using any other medicine that may contain acetaminophen (sometimes abbreviated as APAP). Taking certain medications together can lead to a fatal overdose. What are the possible side effects of acetaminophen and hydrocodone? Get emergency medical help if you have signs of an allergic reaction: hives; difficulty breathing; swelling of your face, lips, tongue, or throat. Opioid medicine can slow or stop your breathing, and may occur. A person caring for you should give naloxone and/or seek emergency medical attention if you have slow breathing with long pauses, blue colored lips, or if you are hard to wake up. In rare cases, acetaminophen may cause a severe skin reaction that can be fatal. This could occur even if you have taken acetaminophen in the past and had no reaction. Stop taking this medicine and call your doctor right away if you have skin redness or a rash that spreads and causes blistering and peeling. Call your doctor at once if you have: ?? noisy breathing, sighing, shallow breathing, breathing that stops during sleep; ?? a light-headed feeling, like you might pass out; ?? liver problems--nausea, upper stomach pain, tiredness, loss of appetite, dark urine, ismael-colored stools, jaundice (yellowing of the skin or eyes); or ?? low cortisol levels-- nausea, vomiting, loss of appetite, dizziness, worsening tiredness or weakness. Seek medical attention right away if you have symptoms of serotonin syndrome, such as: agitation, hallucinations, fever, sweating, shivering, fast heart rate, muscle stiffness, twitching, loss of coordination, nausea, vomiting, or diarrhea. Serious side effects may be more likely in older adults and those who are malnourished or debilitated. Long-term use of opioid medication may affect fertility (ability to have children) in men or women. It is not known whether opioid effects on fertility are permanent. Common side effects include: ?? dizziness, drowsiness, feeling tired; ?? nausea, vomiting, stomach pain; ?? constipation; or ?? headache. This is not a complete list of side effects and others may occur. Call your doctor for medical advice about side effects. You may report side effects to FDA at 1-808-ZCL-2226. What other drugs will affect acetaminophen and hydrocodone? You may have breathing problems or withdrawal symptoms if you start or stop taking certain other medicines. Tell your doctor if you also use an antibiotic, antifungal medication, heart or blood pressure medication, seizure medication, or medicine to treat HIV or hepatitis C. Opioid medication can interact with many other drugs and cause dangerous side effects or . Be sure your doctor knows if you also use: ?? cold or allergy medicines, bronchodilator asthma/COPD medication, or a diuretic ('water pill'); ?? medicines for motion sickness, irritable bowel syndrome, or overactive bladder; ?? other narcotic medications--opioid pain medicine or prescription cough medicine; ?? a sedative like Valium--diazepam, alprazolam, lorazepam, Xanax, Klonopin, Versed, and others; ?? drugs that make you sleepy or slow your breathing--a sleeping pill, muscle relaxer, medicine to treat mood disorders or mental illness; ?? drugs that affect serotonin levels in your body--a stimulant, or medicine for depression, Parkinson's disease, migraine headaches, serious infections, or nausea and vomiting. This list is not complete. Other drugs may affect acetaminophen and hydrocodone, including prescription and zlau-qoh-jdnrthb medicines, vitamins, and herbal products. Not all possible interactions are listed here. Where can I get more information? Your doctor or pharmacist can provide more information about acetaminophen and hydrocodone. Remember, keep this and all other medicines out of the reach of children, never share your medicines with others, and use this medication only for the indication prescribed. Every effort has been made to ensure that the information provided by [employer] ('[employer]') is accurate, up-to-date, and complete, but no guarantee is made to that effect. Drug information contained herein may be time sensitive. [employer] information has been compiled for use by healthcare practitioners and consumers in the [place] and therefore [employer] does not warrant that uses outside of the [place] are appropriate, unless specifically indicated otherwise. [employer] drug information does not endorse drugs, diagnose patients or recommend therapy. [employer] drug information is an informational resource designed to assist licensed healthcare practitioners in caring for their patients and/or to serve consumers viewing this service as a supplement to, and not a substitute for, the expertise, skill, knowledge and judgment of healthcare practitioners. The absence of a warning for a given drug or drug combination in no way should be construed to indicate that the drug or drug combination is safe, effective or appropriate for any given patient. [employer] does not assume any responsibility for any aspect of healthcare administered with the aid of information [employer] provides. The information contained herein is not intended to cover all possible uses, directions, precautions, warnings, drug interactions, allergic reactions, or adverse effects. If you have questions about the drugs you are taking, check with your doctor, nurse or pharmacist. Copyright 1321-3928 [employer]. Version: 16.02. Revision Date: 05/15/2020. Emergency Awareness and Preventative Care STROKE is an EMERGENCY Every Minute Counts Act FAST and Check for these signs: FACE Does the face look uneven? ARM Does one arm drift down? SPEECH Does their speech sound strange? TIME Call at any sign of stroke Stroke Risk Factors Atrial Fibrillation (irregular heartbeat) Diabetes Family history of stroke Heart Disease Heavy alcohol use High Blood Pressure High Cholesterol Physical inactivity and obesity Smoking Cigarette Smoking The facts are clear, cigarette smoking will shorten your life. Smoking can cause many illnesses along the way. As a healthcare provider, we recommend that you stop smoking. Assistance with quitting is available by contacting 5-164-KLBU-NOW. This is a free resource providing counseling, support, and referral. Or you may contact your personal physician. National Suicide Prevention Lifeline: The National Suicide Prevention Lifeline is a national network of local crisis centers that provides free and confidential emotional support to people in suicidal crisis or emotional distress 24 hours a day, 7 days a week. Don't Wait! Stop a Heart Attack Before it Starts What is a heart attack? A heart attack is damage or to a part of the heart from severely decreased or lack of blood flow to the heart. Over time, arteries can become narrow from the buildup of fat and cholesterol, which is called plaque. The plaque can rupture causing a blood clot to form. When the blood clot forms, the artery can become severely narrowed or completely blocked, causing a heart attack. Heart attack is the leading cause of in the [place]. 85% of muscle damage occurs within the first 2 hours. Delay in the recognition of heart attack symptoms increases the chances of . Know the early symptoms of a heart attack: Nausea Feeling of fullness in chest Jaw Pain Pain that travels down one or both arms Fatigue/being tired Anxiety Back Pain Chest pressure, squeezing, or discomfort Shortness of breath Sweating, or a cold sweat Feeling of impending doom There are unusual signs of a heart attack, too! Women, the elderly, and diabetics may present with atypical symptoms: Fainting/dizziness Weakness Confusion Risk Factors for a Heart Attack Some heart disease risk factors, such as age and family history, cannot be changed. Others, like smoking and lack of exercise, can be changed. Smoking High Cholesterol High Blood Pressure Family History Obesity Age Gender (Males are at higher risk) Lack of Exercise Diabetes Diet Stress Excessive Alcohol Intake If you or someone you know is experiencing the signs and symptoms of a heart attack, DON???T DELAY. Call immediately and seek help. If someone collapses, perform CPR! Do not attempt to drive if you are having symptoms of heart attack. Hands-Only CPR Why Hands-Only CPR? Hands-Only CPR has been shown to be as effective as conventional CPR for cardiac arrests that occur outside of a hospital. Survival depends on immediately receiving CPR from someone nearby. How do you perform Hands-Only CPR? There are two easy steps: Call if you see a teen or adult collapse Push hard and fast in the center of the chest at a beat of 100 beats per minute. Save a life! 4 WAYS TO GET AHEAD OF SEPSIS SEPSIS is a MEDICAL EMERGENCY. Time matters! Infections put you and your family at risk for a life-threatening condition called sepsis. Sepsis is the body's extreme response to an infection. It is life-threatening, and without timely treatment, sepsis can rapidly lead to tissue damage, organ failure, and . Sepsis happens when an infection you already have-in your skin, lungs, urinary tract or somewhere else-triggers a chain reaction throughout your body. 1 PREVENT INFECTIONS Take good care of chronic conditions. Talk to your doctor about getting the recommended vaccines. 2 PRACTICE GOOD HYGIENE Wash your hands frequently. Keep cuts or open sores clean and covered until they are healed. 3 KNOW THE SYMPTOMS Confusion or disorientation Shortness of breath High heart rate Fever, shivering, or feeling very cold Extreme pain or discomfort Clammy or sweaty skin 4 ACT FAST Get medical care IMMEDIATELY if you suspect sepsis or if you have an infection that is not getting better or is getting worse. To learn more about sepsis and how to prevent infections, visit www.cdc.gov/sepsis. Test Results Laboratory or Other Results This Visit (last charted value for your 06/25/2020 visit) Hematology documented in this encounter Plan of Treatment Not on file documented as of this encounter Visit Diagnoses Not on filedocumented in this encounter Care Teams Salad Chef Relationship Specialty Start Date End Date Nithya Mahan MD [address] [place] [address] PCP - General Family Medicine 02/02/23 documented as of this encounter
--- OUTSIDE RECORDS SUMMARY | 2025-02-02 12:08 | XMS_ITS | Encounter Summary ---
Author Organization [employer] ([place], [place], [place], [place]) Address [address] [place] [address] Care Team Providers Care Power Plant Electrician Name Role Phone Nithya Mahan MD Primary Care Provider [phone] Encounter Details Date Type Department Care Team (Late st Contact Info) Description 06/26/2020 Transcribed Document [facility] [place] Family [place] [facility] [place] [address] ProviderPrakash MD [address] [place] [address] Social History Tobacco Use Types Packs/Day Years Used Date Smoking Tobacco: Never Assessed Sex and Gender Information Value Date Recorded Sex Assigned at Not on file Legal Sex Male 2:15 PM CDT Gender Identity Not on file Sexual Orientation Not on file documented as of this encounter Miscellaneous Notes * Cerner Conversion Note - Prakash Caldera MD - 06/26/2020 2:36 PM PHOTONICS TECHNICIAN Patient Education Materials Follows: Indwelling Urinary Catheter Care, Adult An indwelling [...] on each side. Do this in a dcyqi-jb-wjur direction. ? If you are male: ? [...] or your leg bag) when it is ??? full, or at least 2?3 times a day. Clean the drainage bag according to the spinning bath patroller's instructions or as told by your health [...] and water are not available, use hand principal gifts officer. ??? Always make sure there are no [...] 04/19/2006 Document Revised: 08/11/2019 Document Reviewed: 12/03/2017 [employer] Patient Education ? 2020 [employer] Radical Prostatectomy, Care After This sheet [...] these instructions at home: Medicines ??? Take cfpl-ykh-kgmlpmq and prescription medicines only as told by [...] and water are not available, use hand principal gifts officer. ? Change your dressing as told by [...] and water are not available, use hand principal gifts officer. ??? Empty your collection bag every 3 [...] need to urinate more frequently. ??? Take gyzs-ikb-amityds and prescription medicines only as told by [...] 01/11/2013 Document Revised: 12/26/2018 Document Reviewed: 03/09/2016 [employer] Interactive Patient Education ? 2019 [employer]. Radical Prostatectomy Radical prostatectomy is a procedure to remove the entire prostate gland and the seminal vesicles.?This procedure is done to treat prostate cancer [...] including vitamins, herbs, eye drops, creams, and fccz-rwy-ucybuuk medicines. ??? Any problems you or family [...] Blood clots in the legs. ??? Formation of?a sac (cyst) in the pelvis that is [...] invasive surgery. Instead of one large incision, 4?5 small incisions will be made in your [...] 07/28/2006 Document Revised: 09/24/2016 Document Reviewed: 03/09/2016 [employer] Interactive Patient Education ? 2019 [employer]. Electronically signed by Loretta Brown Conversion Professor Of Political Science Cerner at 08/20/2022 9:24 AM CDT documented in this encounter Plan of Treatment Not on file documented as of this encounter Visit Diagnoses Not on filedocumented in this encounter Care Teams Power Plant Electrician Relationship Specialty Start Date End Date Nithya Mahan MD [address] [place] [id number] PCP - General Family Medicine 02/02/23 documented as of this encounter
--- OUTSIDE RECORDS SUMMARY | 2025-02-02 12:08 | XMS_ITS | Encounter Summary ---
Author Organization [email or web address] ([place], [place], [place], [place]) Address [address] [place] [address] Care Team Providers Care Special Needs Nanny Name Role Phone Nithya Mahan MD Primary Care Provider [phone] Encounter Details Date Type Department Care Team (Late st Contact Info) Description 06/26/2020 Transcribed Document [facility] [place] [address] ProviderPrakash MD [address] [place] [address] Social History Tobacco Use Types Packs/Day Years Used Date Smoking Tobacco: Never Assessed Sex and Gender Information Value Date Recorded Sex Assigned at Not on file Legal Sex Male 2:15 PM CDT Gender Identity Not on file Sexual Orientation Not on file documented as of this encounter Miscellaneous Notes * Cerner Conversion Note - Prakash ProviderMD - 06/26/2020 2:00 AM PHYSICIAN OFFICE ASSISTANT Hot Cell Technician Details Entered On: 06/26/2020 0:24 EST Performed On: 06/26/2020 2:00 EST by Angelica Sunshine Rn Order Details Transport Mode Order Detail : Bed (including specialty) Isolation Precautions Order Detail : Standard Precautions Order Detail : N/A IV Order Detail : 1 Oxygen Order Detail : 0 Lift/Transfer : Independent Central Line Order Detail : No Room Service : Appropriate Arterial Line : No Patient Needs Meds Crushed/Liquid : No Angelica Sunshine Rn - 06/26/2020 0:24 EST Electronically signed by Stephanie [facility] Conversion Pharmacy Resource Tech Cerner at 08/20/2022 9:18 AM CDT documented in this encounter Plan of Treatment Not on file documented as of this encounter Visit Diagnoses Not on filedocumented in this encounter Care Teams Special Needs Nanny Relationship Specialty Start Date End Date Nithya Mahan MD [address] [place] [address] PCP - General Family Medicine 02/02/23 documented as of this encounter
--- OUTSIDE RECORDS SUMMARY | 2025-02-02 12:08 | XMS_ITS | Encounter Summary ---
Author Organization Healthcare Address [address] [place] [address] Care Team Providers Care Rn New Graduate Name Role Phone Nithya Mahan MD Primary Care Provider [phone] Jeniffer Bhagat LPN Unavailable Unavailab le Encounter Details Date Type Department Care Team (Late st Contact Info) Description 11/04/2021 Outside Procedure External Location [address] [place] [address] Provider, [facility] Social History Tobacco Use Types Packs/Day Years Used Date Smoking Tobacco: Former Cigarettes 1 17 1 083 - 5414 Smokeless Tobacco: Never Alcohol Use Standard Drinks/Week [...] Procedure Name Priority Date/Time Associated Diagnosis Comments CT HEAD WO IV CONTRAST 11/04/2021 12:42 PM EDT documented in this encounter Results * CT Head wo IV Contrast (11/04/2021 12:42 PM EDT) Anatomical Region Laterality Modality Head Computed Tomogra phy 11/04/2021 12:4 2 PM EDT Narrative 11/04/2021 1:11 PM EDT [facility] [address] [place] [address] Name: DAVENPORT, NEFTALI Exam Date: 11/04/2021 : 1950 Age 71 Gender: M Physician: CASSI ARCHIBALD Facility: [facility] Facility HSV: Outpatient Exam: CT BRAIN W/O EXAMINATION: CT HEAD WITHOUT IV CONTRAST INDICATION: Slurred speech. TECHNIQUE: Contiguous axial noncontrast CT images of the head. Coronal and sagittal reformatted images were generated and reviewed. COMPARISON: None FINDINGS: No evidence of acute hemorrhage. No evidence of brain parenchymal ischemia. No extra-axial collection. No mass effect, midline shift, or herniation. Periventricular and subcortical white matter hypodensities are nonspecific but favored to represent chronic microvascular ischemic changes in a patient of this age. Normal ventricular configuration. Basal cisterns are patent. Normal sized CSF spaces, accounting for age-related global cerebral volume loss. Visualized orbital structures are unremarkable. Visualized paranasal sinuses are clear No abnormality of the scalp soft tissues. No evidence of skull fracture. IMPRESSION: 1. No definite acute large territory infarct or intracranial hemorrhage. 2. Volume loss with significant chronic white matter changes. 3. May consider MRI for further evaluation. Dictated By: Rakan Servin Transcribed By: Rakan Benavides Transcribed On: 11/04/2021 12:59 PM Electronically signed by: Rakan Servin 11/04/2021 Thank you for referring DAVENPORTNEFTALI to [facility]. Legally authenticated by DIAMOND HENDERSON 2021-11-04 12:59:22 Procedure Note Provider, [facility] - 11/04/2021 [place] [address] Name: NEFTALI DAVENPORT Exam Date: 11/04/2021 : 1950 Age 71 Gender: M Physician: CASSI ARCHIBALD Facility: [facility] Facility HSV: Outpatient Exam: CT BRAIN W/O EXAMINATION: CT HEAD WITHOUT IV CONTRAST INDICATION: Slurred speech. TECHNIQUE: Contiguous axial noncontrast CT images of the head. Coronaland sagittal reformatted images were generated and reviewed. COMPARISON: None FINDINGS: No evidence of acute hemorrhage. No evidence of brain parenchymalischemia. No extra-axial collection. No mass effect, midline shift, or herniation. Periventricular and subcortical white matter hypodensities are nonspecificbut favored to represent chronic microvascular ischemic changes in a patientof this age. Normal ventricular configuration. Basal cisterns are patent. Normal sizedCSF spaces, accounting for age-related global cerebral volume loss. Visualized orbital structures are unremarkable. Visualized paranasalsinuses are clear No abnormality of the scalp soft tissues. No evidence of skull fracture. IMPRESSION: 1. No definite acute large territory infarct or intracranial hemorrhage. 2. Volume loss with significant chronic white matter changes. 3. May consider MRI for further evaluation. Dictated By: Rakan Servin Transcribed By: Rakan Benavides Transcribed On: 11/04/2021 12:59 PM Electronically signed by: Rakan Servin 11/04/2021 Thank you for referring NEFTALI DAVENPORT to [facility]. Legally authenticated by DIAMOND HENDERSON 2021-11-04 12:59:22 Generic [place] Provider IMG CT PROCEDURES Fi nal Result documented in this encounter Visit Diagnoses Not on filedocumented in this encounter Additional Health Concerns Assessment Noted Time A fall risk assessment has been complete d for the patient 02/25/2021 8:55 AM EDT documented as of this encounter Care Teams Rn New Graduate Relationship Specialty Start Date End Date Nithya Mahan MD [address] [place] [id number] PCP - General 09/13/20 Jeniffer Bhagat LPN VALUE-BASED TRANSFORMATION PROGRAM Licensed Practical Nurse 04/08/23 05/10/23 documented as of this encounter
--- OUTSIDE RECORDS SUMMARY | 2025-02-02 12:08 | XMS_ITS | Encounter Summary ---
Author Organization Healthcare Address [address] [place] [address] Care Team Providers Care Payroll Assistant Name Role Phone Nithya Mahan MD Primary Care Provider [phone] Encounter Details Date Type Department Care Team (Late st Contact Info) Description 09/29/2024 Outside Procedure External Location [address] [place] [address] Provider, [facility] Social History Tobacco Use Types Packs/Day Years Used Date Smoking Tobacco: Former Cigarettes 1 1 963 - 1979 Passive Smoke Exposure: [...] Never 04/09/2023 How often do you attend rastafarian or amish serv ices? Never 04/09/2023 Do you belong to any clubs o r organizations such as rastafarian groups, unions, fraternal or athletic groups, or [...] Recorded Patient Health Questionnaire-2 Score 0 02/29/2024 [facility] - Occupational Stress Questionnaire Answer Date [...] place to sleep or slept in a mcfp (including now)? No 12/10/2023 Safety and Environment [...] Procedure Name Priority Date/Time Associated Diagnosis Comments FL LESS THAN 1 HOUR (NON-REPORTABLE) 09/29/2024 9:26 AM EDT documented in this encounter Results * FL Less than 1 Hour (09/29/2024 9:26 AM EDT) Anatomical Region Laterality Modality Radiographic Belen ging 09/29/2024 9:26 AM EDT Narrative 10/06/2024 3:46 PM EDT [place] [id number] [place] [id number] Name: ENFTALI DAVENPORT Exam Date: 09/29/2024 : 1950 Age 74 years Gender: M Physician: DONALD MARTINEZ Facility: [facility] Facility HSV: Outpatient Exam: FLUORO LESS THAN 1 HR STUDY: FL LESS THAN 1 HOUR HISTORY: ft=6.0s EXAMINATION: Fluoroscopic Support/Archiving REPORT DATE: 10/06/2024 2:41 PM CDT COMPARISON: None. TECHNIQUE: 1 fluoroscopic images are provided. Fluoroscopy time: 6 seconds Total reference air kerma: 2.46 mGy FINDINGS: Various fluoroscopic images denoting instrumentation. Localization marker and lateral view of the lumbosacral spine IMPRESSION: Fluoroscopic support only. A radiologist was not present at the time of the procedure. Please see separate report by the referring/performing clinician for findings and procedure details. Electronically signed by: Madeline Ewing MD 10/06/2024 03:42 PM EDT Dictated By: Madeline Ewing Transcribed By: Transcribed On: 10/06/2024 3:42 PM Electronically signed by: Madeline Ewing 10/06/2024 Thank you for referring DAVENPORTNEFTALI to [facility]. Legally authenticated by NAHID Valles 2024-10-06 15:42:41 Procedure Note Provider, [facility] 10/06/2024 [place] [address] Name: NEFTALI DAVENPORT Exam Date: 09/29/2024 : 1950 Age 74 years Gender: M Physician: DONALD MARTINEZ Facility: [facility] Facility HSV: Outpatient Exam: FLUORO LESS THAN 1 HR STUDY: FL LESS THAN 1 HOUR HISTORY: ft=6.0s EXAMINATION: Fluoroscopic Support/Archiving REPORT DATE: 10/06/2024 2:41 PM CDT COMPARISON: None. TECHNIQUE: 1 fluoroscopic images are provided. Fluoroscopy time: 6 seconds Total reference air kerma: 2.46 mGy FINDINGS: Various fluoroscopic images denoting instrumentation. Localization markerand lateral view of the lumbosacral spine IMPRESSION: Fluoroscopic support only. A radiologist was not present at the time ofthe procedure. Please see separate report by the referring/performingclinician for findings and procedure details. Electronically signed by: Madeline Ewing MD 10/06/2024 03:42 PM EDT RP Dictated By: Madeline Ewing Transcribed By: Transcribed On: 10/06/2024 3:42 PM Electronically signed by: Madeline Ewing 10/06/2024 Thank you for referring NEFTALI DAVENPORT to [facility]. Legally authenticated by NAHID Valles 2024-10-06 15:42:41 [facility] Provider IMG FLUOROSCOPY PROC EDURES Final Result documented in this encounter Visit Diagnoses Not on filedocumented in this encounter Additional Health Concerns Assessment Noted Time A fall risk assessment has been complete d for the patient 02/29/2024 9:00 AM EDT A Body Mass Index follow-up plan has been documented for the patient 02/29/2024 9:54 AM EDT documented as of this encounter Care Teams Payroll Assistant Relationship Specialty Start Date End Date Nithya Mahan MD [address] [place] [address] PCP - General 09/13/20 documented as of this encounter
--- OUTSIDE RECORDS SUMMARY | 2025-02-02 12:08 | XMS_ITS | Encounter Summary ---
Author Organization [employer] ([place], [place], [place], [place]) Address [address] [place] [address] Care Team Providers Care Train Conductor Name Role Phone Nithya Mahan MD Primary Care Provider [phone] Encounter Details Date Type Department Care Team (Late st Contact Info) Description 06/25/2020 Transcribed Document [facility] [place] [facility] [address] ProviderPrakash MD [address] [place], [place] [id number] Social History Tobacco Use Types Packs/Day Years Used Date Smoking Tobacco: Never Assessed Sex and Gender Information Value Date Recorded Sex Assigned at Not on file Legal Sex Male 2:15 PM CDT Gender Identity Not on file Sexual Orientation Not on file documented as of this encounter Miscellaneous Notes * Cerner Conversion Note - Prakash Caldera MD - 06/25/2020 5:30 PM STOCK ORDER LISTER Patient: NEFTALI DAVENPORT Age: 70 Years Sex: Male : 1950 Chief Complaint Date of Service: 06/25/2020 17:30:47 Prostate cancer Reason for Consultation Myasthenia Gravis History of Present Illness 70 yo WM who presents with Prostate Cancer. The patient had been followed by his PCP for an elevated PSA for many years but it has recently increased. Because of this, he was referred to Dr Burroughs where a prostate biopsy was performed. This revealed an Adenocarcinoma of the Prostate, Inez score of 8. The patient was offered a Robotic Prostatectomy with Nodes and has agreed to the procedure. Pt denies h/o DVT/PE. No trouble with anesthesia in the past. No COPD/GABINO/Asthma. He had his procedure today and shows no signs of acute complications. Currently he is resting comfortably in his room and says that he rates his pain a 3 of 10. He is not dyspneic. He says his myasthenia flares show up as double vision most frequently. No reports of chest pain, dyspnea or recent fever. Review of Systems All other organ systems were reviewed. Pertinent positives and negatives as noted in HPI. Vital Signs T: 36.7 ??C HR: 57(Monitored) RR: 14 BP: 121/55 SpO2: 96% HT: 182.88 cm WT: 88.64 kg BMI: 26.5 Oxygen Settings (Last) Oxygen Therapy Mode: Room air (06/25/20 16:41:00) Oxygen Flow Rate: 2 Liter/Min (06/25/20 15:00:00) Physical Exam General: no acute distress Neurologic: Awake, alert, and oriented X3, Moves all extremities. No slurred speech or EOM abnormalities. Eye: Pupils reactive and equal bilaterally. OP clear. Neck: No carotid bruits, no JVD, no lymphadenopathy Lungs: Clear to auscultation bilaterally. No wheezes. Heart: Regular rate and rhythm. No murmurs. Abdomen: Soft, non-tender, non-distended, normal bowel sounds, no masses Extremities: No edema. Full range of motion where tested. Skin: No rashes or lesions Assessment/Plan 1. Prostate cancer - post prostatectomy today. Diet, activity, VTE prophy and pain control per Surgery orders 2. Hx CAD - on aspirin. Resume when approved by Urology. 3. Myasthenia gravis - no active symptoms Monitor for acute neurologic or respiratory changes Continue pyridostigmine at home dose Incentive spirometry 4. HTN- stable. Monitor and adjust meds as needed for control. 5. AM labs VTE Prophylaxis - Medical Enoxaparin 40 mg, SubCutaneous, Inj, [id number], Start 06/26/20 9:00:00 EST (ANGELIA BURROUGHS JR, MD-URO) Sequential Compression Device Start: 06/25/20 9:49:00 EST, Bilateral, Length: Knee High, While patient is in bed, Continuous Order (ANGELIA BURROUGHS JR, MD-URO) Sequential Compression Device Start: 06/25/20 9:49:00 EST, Bilateral, Length: Knee High, Continuous Order (ANGELIA BURROUGHS JR, MD-URO) Sequential Compression Device Start: 06/25/20 9:46:00 EST, Bilateral, Continuous Order (ANGELIA BURROUGHS JR, MD-URO) Provider Information Primary Care Physician - KIRK DUTTON DR Attending Physician - ANGELIA BURROUGHS JR, MD-URO Admitting Physician - ANGELIA BURROUGHS JR, MD-URO Consulting Physician - ALVA FELIPE DO-ANS Referring Physician - ANGELIA BURROUGHS JR, MD-URO Problem List/Past Medical History Ongoing Arthritis At risk for sleep apnea barretts esophagus CAD enlarged prostate GERD Hx of myasthenia gravis hyperlipidemia hypertension Historical No qualifying data Procedure/Surgical History REPLACEMENT OF LEFT LENS WITH SYNTH SUB, PERC APPROACH (09/03/2015), bilateral groin peripheral artery bypass, duodenal surgery, heart stents x2 with cath, left eye surgery. SN - Proc - Procedure: Prostatectomy Radical Robotic (06/25/20 14:35:38) Medications Inpatient B & O Supprettes 16-A, 1 Supp, Rectal, Q6H, PRN Colace, 100 mg= 1 Cap, Oral, BID Dilaudid, 0.5 mg= 0.5 mL, IV Push, Q4H, PRN Ditropan, 5 mg= 1 Tab, Oral, Q6H, PRN hydroCHLOROthiazide, 25 mg= 1 Tab, Oral, Daily lisinopril, 30 mg= 3 Tab, Oral, Daily Lovenox, 40 mg= 0.4 mL, SubCutaneous, [id number] Percocet 5/325 oral tablet, 1 Tab, Oral, Q4H, PRN Phenergan, 6.25 mg= 0.25 mL, IntraMuscular, Q6H, PRN Protonix, 40 mg= 1 Tab, Oral, Daily pyridostigmine, 60 mg= 1 Tab, Oral, TID Sodium Chloride 0.9% intravenous solution 1,000 mL, 1000 mL, IntraVENous Toprol-XL, 100 mg= 1 Tab, Oral, Daily TriCor 145 mg oral tablet, 145 mg= 1 Tab, Oral, Daily Zofran, 4 mg= 2 mL, IV Push, Q4H, PRN Home aspirin 81 mg oral delayed release tablet, 81 mg= 1 Tab, Oral, Daily Colace 100 mg oral capsule, 100 mg= 1 Cap, Oral, BID famotidine, 40 mg, Oral, Daily fenofibrate 160 mg oral tablet, 160 mg= 1 Tab, Oral, Daily hydrochlorothiazide, 25 mg, Oral, Daily lisinopril 30 mg oral tablet, 30 mg= 1 Tab, Oral, Daily Macrobid 100 mg oral capsule, 100 mg= 1 Cap, Oral, BID Mag-Ox 400 oral tablet, 400 mg= 1 Tab, Oral, Daily MiraLax oral powder for reconstitution, 17 Gram, Oral, Daily [place] 7.5 mg-325 mg oral tablet, 1 Tab, Oral, Q4H, PRN omeprazole 40 mg oral delayed release capsule, 40 mg= 1 Cap, Oral, Daily pyridostigmine 60 mg oral tablet, 60 mg= 1 Tab, Oral, TID Toprol-XL 100 mg oral tablet, extended release, 100 mg= 1 Tab, Oral, Daily Allergies No Known [...] 60s. Pt did not know his father. Lab Results Test Name Test Result Date/Time Platelet Count 173 K/uL 06/25/2020 15:47 EST Electronically signed by Stephanie [facility] Conversion Glass Cutting Machine Feeder Cerner at 08/20/2022 9:07 AM CDT documented in this encounter Plan of Treatment Not on file documented as of this encounter Visit Diagnoses Not on filedocumented in this encounter Care Teams Train Conductor Relationship Specialty Start Date End Date Nithya Mahan MD [address] [place] [address] PCP - General Family Medicine 02/02/23 documented as of this encounter
--- OUTSIDE RECORDS SUMMARY | 2025-02-02 12:08 | XMS_ITS | Encounter Summary ---
Author Organization [employer] ([place], [place], [place], [place]) Address [address] [place] [address] Care Team Providers Care Dope Weigh Operator Name Role Phone Nithya Mahan MD Primary Care Provider [phone] Encounter Details Date Type Department Care Team (Late st Contact Info) Description 06/25/2020 Transcribed Document [facility] [place] [facility] [place] [address] ProviderPrakash MD [address] [place], [place] [id number] Social History Tobacco Use Types Packs/Day Years Used Date Smoking Tobacco: Never Assessed Sex and Gender Information Value Date Recorded Sex Assigned at Not on file Legal Sex Male 2:15 PM CDT Gender Identity Not on file Sexual Orientation Not on file documented as of this encounter Miscellaneous Notes * Cerner Conversion Note - Prakash Caldera MD - 06/25/2020 9:49 AM BIOPHYSICS TEACHER Consult Phone Call Documentation Entered On: 06/25/2020 16:12 EST Performed On: 06/25/2020 9:49 EST by NANI MAY Phone Call for Consults Consult Phone Call/Page Attempt : First call Physician Requested for Consult : SINTIA COLEMAN MD Physician Covering for Consult : SINTIA COLEMAN MD Date and Time Call Returned : 06/25/2020 16:12 EST Physician Returning Call : SINTIA COLEMAN MD TYE, CHERYL - 06/25/2020 16:11 EST documented in this encounter Plan of Treatment Not on file documented as of this encounter Visit Diagnoses Not on filedocumented in this encounter Care Teams Dope Weigh Operator Relationship Specialty Start Date End Date Nithya Mahan MD [address] [place] [address] PCP - General Family Medicine 02/02/23 documented as of this encounter
--- OUTSIDE RECORDS SUMMARY | 2025-02-02 12:08 | XMS_ITS | Clinical Summary ---
Author Organization [employer] ([place], [place], [place], [place]) Address [address] [place] [address] Care Team Providers Care Soft Top Installer Name Role Phone Nithya Mahan MD Primary Care Provider [phone] Allergies Active Allergy Reactions Criticality Noted Date Comments Levofloxacin Other (See Comments) 07/27/2023 Depembq-Xrm-Njt Reductase Inhibitors Other (See Comments) 07/27/2023 Medications [...] Peripheral vascular disease 08/20/2015 Myasthenia gravis 07/28/2014 Family History Medical History Relation Name Comments No Known Problem Father Heart disease Mother Stroke Mother Relation Name Status Comments Father Mother Social History Tobacco Use Types Packs/Day Years [...] Date Kris rded Speak language other than Stateless at home Not on file 05/15/2023 Want [...] 08/15/2024 1:49 PM EDT Plan of Treatment Health Maintenance Due Date Last Done Comments Medicare Initial AWV [id number] CT Colonography 1950 Colonoscopy 1950 Colorectal Cancer Screening 1950 FOBT/FIT 1950 Fit-DNA (Cologuard) 1950 Sigmoidoscopy 1950 Depression Screening (12+) 1961 Hepatitis C Screening 1967 Shingles Vaccine (Zoster) (1 of 2) 1999 Abdominal Aortic Aneurysm (A AA) Screen 2014 Respiratory Syncytial Virus (RSV) Adult or (1 - 1-dose 75+ series) 2024 COVID-19 VACCINE (4 - 2024-2 6 season) 2025 04/23/2021, 08/28/2020, 07/31/2020 Influenza Vaccine (#1) 2025 , 03/03/2022, 02/25/2021, Additional history exists Tobacco Cessation Counseling and Screening (12+) 08/15/2025 08/15/2024 DTAP/TDAP/TD VACCINES (2 - T d or Tdap) 03/03/2026 03/03/2016 Pneumococcal 50+ years Completed 02/21/2018, 2015 Falls Risk Screening Completed 08/15/2024 Insurance [facility] SUPP MEDICARE PART A B Care Teams Soft Top Installer Relationship Specialty Start Date End Date Nithya Mahan MD [address] [place] [address] PCP - General Family Medicine 02/02/23
--- OUTSIDE RECORDS SUMMARY | 2025-02-02 12:08 | XMS_ITS | Encounter Summary ---
Author Organization Healthcare Address [address] [place] [address] Care Team Providers Care Oral Health Therapist Name Role Phone Nithya Mahan MD Primary Care Provider [phone] Encounter Details Date Type Department Care Team (Late st Contact Info) Description 03/16/2024 Outside Procedure External Location [address] [place] [address] Provider, [facility] Social History Tobacco Use Types Packs/Day Years [...] Never 04/09/2023 How often do you attend congregational or taoism serv ices? Never 04/09/2023 Do you belong to any clubs o r organizations such as congregational groups, unions, fraternal or athletic groups, or [...] Recorded Patient Health Questionnaire-2 Score 0 02/29/2024 [facility] - Occupational Stress Questionnaire Answer Date Recorded [...] place to sleep or slept in a long term (including now)? No 12/10/2023 Safety and Environment [...] Procedure Name Priority Date/Time Associated Diagnosis Comments MR LUMBAR SPINE WO IV CONTRAST 03/16/2024 2:46 PM EST documented in this encounter Results * MR Lumbar Spine wo IV Contrast (03/16/2024 2:46 PM EST) Anatomical Region Laterality Modality L-spine Magnetic Resonan ce 03/16/2024 2:46 PM EST Narrative 03/17/2024 2:28 [place] [address] Name: NEFTALI DAVENPORT Exam Date: 03/16/2024 : 1950 Age 73 years Gender: M Physician: DONALD MARTINEZ Facility: [facility] Facility HSV: Outpatient Exam: MRI LUMBAR SPINE W/O MRI lumbar spine without contrast Comparison August 27, 2020 Technique: Sagittal T1, T2, STIR and axial T1 and T2-weighted images through the lumbar spine were obtained. Findings: There is no compression fracture or bony malalignment. Subtle grade 1 spondylolisthesis L3-4 level. The conus terminates at the level of the T12-L1 disc. Conus normal in signal and caliber. At the level of T12-L1 there is At the level of L1-L2 there is disc protrusion and hypertrophic changes of facet joints. No spinal or neural foraminal stenosis. At the level of L2-L3 there is disc protrusion and hypertrophic changes of facet joints. Mild spinal stenosis. Neural foramina patent At the level of L3-L4 there is severe spinal stenosis resulting from disc protrusion and hypertrophic changes of facet joints. Neural foramina remain grossly patent. At the level of L4-L5 there is severe spinal stenosis resulting from disc protrusion/herniation. Extruded disc material extending superior to the disc space level greatest in the right of midline. There are also hypertrophic changes of facet joints. Severe narrowing right neural foramina mild narrowing left neural foramina. At the level of L5-S1 there is no canal or neural foraminal stenosis. No paraspinal abnormalities are seen. Bilateral renal cysts. Impression: Severe spinal stenosis L3-4 and L4-5 levels. At L4-5 level there is a disc herniation with extruded disc material extending superior to the disc space level in the right paracentral region. Mild spinal stenosis L2-L3 level. Severe narrowing right neural foramina mild narrowing left neural foramina at L4-5 level. Electronically signed by:Joao Cerrato MD03/17/2024 02:25 PM [facility] Dictated By: Joao Cerrato Transcribed By: Transcribed On: 03/16/2024 1:42 PM Legally authenticated by BETZAIDA ORDAZ 2024-03-16 13:42:27 Electronically signed by: Joao Cerrato 03/16/2024 Thank you for referring CHICA DAVENPORTIN to [facility]. Legally authenticated by BETZAIDA ORDAZ 2024-03-16 13:42:27 Procedure Note Provider, Generic [facility] - 03/17/2024 [address] [place] [address] Name: NEFTALI DAVENPORT Exam Date: 03/16/2024 : 1950 Age 73 years Gender: M Physician: DONALD MARTINEZ Facility: [facility] Facility HSV: Outpatient Exam: MRI LUMBAR SPINE W/O MRI lumbar spine without contrast Comparison August 27, 2020 Technique: Sagittal T1, T2, STIR and axial T1 and T2-weighted imagesthrough the lumbar spine were obtained. Findings: There is no compression fracture or bony malalignment. Subtlegrade 1 spondylolisthesis L3-4 level. The conus terminates at the level of the T12-L1 disc. Conus normal insignal and caliber. At the level of T12-L1 there is At the level of L1-L2 there is disc protrusion and hypertrophic changesof facet joints. No spinal or neural foraminal stenosis. At the level of L2-L3 there is disc protrusion and hypertrophic changesof facet joints. Mild spinal stenosis. Neural foramina patent At the level of L3-L4 there is severe spinal stenosis resulting fromdisc protrusion and hypertrophic changes of facet joints. Neural foraminaremain grossly patent. At the level of L4-L5 there is severe spinal stenosis resulting fromdisc protrusion/herniation. Extruded disc material extending superior to thedisc space level greatest in the right of midline. There are alsohypertrophic changes of facet joints. Severe narrowing right neural foramina mildnarrowing left neural foramina. At the level of L5-S1 there is no canal or neural foraminal stenosis. No paraspinal abnormalities are seen. Bilateral renal cysts. Impression: Severe spinal stenosis L3-4 and L4-5 levels. At L4-5 level there is a disc herniation with extruded disc materialextending superior to the disc space level in the right paracentral region. Mild spinal stenosis L2-L3 level. Severe narrowing right neural foramina mild narrowing left neural foraminaat L4-5 level. Electronically signed by:Joao Cerrato MD03/17/2024 02:25 PM [facility] Dictated By: Joao Cerrato Transcribed By: Transcribed On: 03/16/2024 1:42 PM Legally authenticated by BETZAIDA ORDAZ 2024-03-16 13:42:27 Electronically signed by: Joao Cerrato 03/16/2024 Thank you for referring NEFTALI DAVENPORT to [facility]. Legally authenticated by BETZAIDA ORDAZ 2024-03-16 13:42:27 Generic [facility] Provider IMG MRI PROCEDURES F inal Result documented in this encounter Visit Diagnoses Not on filedocumented in this encounter Additional Health Concerns Assessment Noted Time A fall risk assessment has been complete d for the patient 02/29/2024 9:00 AM EDT A Body Mass Index follow-up plan has been documented for the patient 02/29/2024 9:54 AM EDT documented as of this encounter Care Teams Oral Health Therapist Relationship Specialty Start Date End Date Nithya Mahan MD [address] [place] [id number] PCP - General 09/13/20 documented as of this encounter
== END 2025-02-01 23:59 ==
LOC: LAB.DROPOF 02-02 12:06
PROVIDERS: PCP Student in an Organized Health Care Education/Training Program; Visit Provider Student in an Organized Health Care Education/Training Program
DX: I25.10 Atherosclerotic heart disease of native coronary artery without angina pectoris (principal); R00.2 Palpitations; E78.5 Hyperlipidemia, unspecified; E83.42 Hypomagnesemia
CPT/HCPCS: 80053; 80061; 83735; 84439; 84443; 85025